=== PATIENT | female | born 1940 | race Caucasian/White ===

== ENCOUNTER 2022-02-25 09:27 | Inpatient (IN) ==
[2022-02-25] MEDS ORDERED: AZITHROMYCIN 500 MG in DEXTROSE 5% IN WATER 250 ML IV ONE (09:28)
[2022-02-25] MEDS ORDERED: ACETAMINOPHEN 325 MG TABLET PO ONE (09:28)
[2022-02-25] MEDS ORDERED: cefTRIAXone 1 GM in DEXTROSE 5% IN WATER 50 ML IV SCH ×2 (09:30→14:24)
[2022-02-25] MEDS ORDERED: 0.9 % SODIUM CHLORIDE 1,000 ML IV ONE (09:31)
--- NOTE | 2022-02-25 09:54 | Emergency Department Note ---
HPI General Chief complaint: Weakness Stated complaint: weakness Time Seen by Provider: 02/25/22 09:28 Source: patient Mode of arrival: ambulatory Limitations: no limitations History of Present Illness HPI Narrative: Narrative: 81-year-old female presents the emergency department complaining of cough congestion generalized weakness. Says been going on for about 5 to 3 days. Was seen at urgent care couple days ago diagnosed just with fluid overloaded started on Lasix. States that she continues to get not get better. Says she has been coughing quite a bit at first it was just clear phlegm now turned into green- brownish phlegm. States that she has felt feverish not actually checked her temperature just has not been feeling well over the last couple days says getting harder and harder to breathe but just because she cannot cough all the phlegm out. She is also noticed nasal drainage. She has no painful urination no abdominal pain no chest pain so the shortness of breath is only when she gets up and moves but just because she cannot cough all the phlegm out. Denying any other symptoms otherwise. Related Data Home Medications Medication Instructions Recorded Confirmed amlodipine 10 mg tablet 10 mg PO QDAY 02/25/22 02/25/22 aspirin 325 mg tablet 325 mg PO QDAY 02/25/22 02/25/22 chlorthalidone 25 mg tablet 25 mg PO QDAY 02/25/22 02/25/22 gabapentin 300 mg capsule 300 mg PO QID 02/25/22 02/25/22 insulin glargine 100 unit/mL (3 56 unit SUBCUT DAILY 02/25/22 02/25/22 mL) subcutaneous pen (Lantus Solostar U-100 Insulin) insulin lispro 100 unit/mL 20 - 24 unit SUBCUT TID 02/25/22 02/25/22 subcutaneous pen (Humalog KwikPen (U-100) Insulin) metoprolol succinate 100 mg 100 mg PO QDAY 02/25/22 02/25/22 tablet,extended release 24 hr (Toprol XL) omega-3 339 mg-dha and epa 314 1 cap PO DAILY 02/25/22 02/25/22 mg-fish and krill oil 500 mg capsule (MegaRed Advanced 4-in-1) omeprazole 20 mg capsule,delayed 20 mg PO QDAY 02/25/22 02/25/22 release promethazine-DM 6.25 mg-15 mg/5 mL 5 ml PO HS PRN 02/25/22 02/25/22 oral syrup valsartan 80 mg tablet 80 mg PO QDAY 02/25/22 02/25/22 Allergies Allergy/AdvReac Type Severity Reaction Status Date / Time codeine Allergy Swelling Verified 10/18/21 07:56 Review of Systems ROS ROS Narrative: Narrative: All systems ED: reviewed and negative except as stated. PFSH Narrative Patient History Narrative: Narrative: Medical/Surgical/Family History All Active Problems (Updated 02/25/22 @ 12:48 by Vimal Sy DO) Foot pain, right (Acute) Fall (Acute) Closed head injury (Acute) LLL pneumonia (Acute) Sepsis (Acute) COVID-19 (Acute) Social History Smoking Status: Never smoker Exam Narrative Narrative: Narrative: Vital signs noted General: Awake. Alert. No distress. Skin: Warm. Dry. No rash. HEENT: NCAT. PERRL. EOMI. No conjunctivitis. No nystagmus. No pharyngitis. Membranes moist. Neck: No PTP. Good ROM. No meningeal signs. No stridor. No thyromegaly. No JVD. Cardiovascular: RRR. No murmur. No rubs. No gallops. Respiratory: No respiratory distress. Does have rhonchi bilaterally in both bases worse on the left than the right. Gastrointestinal: Abdomen soft. No tenderness. No distention. Normal bowel sounds. No palpable organomegaly or masses. Back: No deformity. No CVAT. Musculoskeletal: No tenderness. No swelling. No erythema. 2+ bilateral pedal edema. Good peripheral pulses x 4 Lymphatic: No palpable adenopathy. Neurological: No focal neurological deficits observed. General Limitations: no limitations Course Vital Signs Vital signs: Vital Signs Temperature 98.6 F 02/25/22 09:28 Pulse Rate 104 H 02/25/22 09:28 Respiratory Rate 18 02/25/22 09:28 Blood Pressure 156/65 02/25/22 09:28 Pulse Oximetry (%) 96 02/25/22 09:28 Temperature 98.6 F 02/25/22 09:28 Pulse Rate 89 02/25/22 12:31 Respiratory Rate 21 02/25/22 12:31 Blood Pressure 143/75 02/25/22 12:31 Pulse Oximetry (%) 93 02/25/22 12:31 MDM MDM Narrative Medical decision making narrative: Narrative: Patient is presenting she does meet criteria for sepsis. Most likely this is from pneumonia. Went ahead and started the sepsis protocol. Lactate was elevated at 2.6. Unguinal hold off on giving patient the full 30 mL/kg IV fluid bolus due to the fact that she does have a little bit of fluid overload. We will give her 1 L and continue to watch her to monitor. Other labs are pending we will get blood cultures. We will start her on azithromycin and Ceftin most likely for community-acquired pneumonia. Disposition most likely will be admission secondary to the generalized weakness as well as the sepsis and pneumonia. Tylenol was also given for antipyretic. Labs came back showing leukocytosis as well as chest x-ray showing left lower lobe pneumonia. She also had a mild elevation in lactate which was 2.6. I will give her the 1 L somewhat about fluid overload. Patient's antibiotics were started with azithromycin and ceftriaxone. She had normalizing of her heart rate as well with these. Tylenol was also given for antipyretic. CMP otherwise was normal. The procalcitonin also was elevated. Thinks most likely is pneumonia COVID test does not admit the patient and she came back COVID- positive. I spoke with the hospitalist Dr. Grace who has agreed to admit the patient. Patient is admitted in fair condition. EKG interpretation: EKG done at 0 929 interpreted by myself shows sinus tachycardia at a rate of 102, NM interval 163, QRS 98, QTc 501. There is no acute ST changes no acute T wave changes no other signs of ischemia. No signs of hypertrophy, heart strain, heart block. No WPW/Brugada/HOCM. Impression is normal sinus tachycardia with no ischemia Total critical care time of 32 min including performance of history and physical exam, review of results, re-examinations, time spent documenting, border inspector, review of old records, discussions with patient and family, discussions with retail sales consultant(s), discussion with admitting physician, completion of admission/transfer paperwork. This does not include time for any separately documented procedures. Lab Data Result diagrams: 02/25/22 09:38 02/25/22 09:38 Labs: Lab Results 02/25/22 02/25/22 02/25/22 Range/Units 09:38 09:38 09:38 WBC 19.3 H (4.5-11.0) K/mcL RBC 3.70 (3.59-5.38) M/mcL Hgb 9.6 L (11.2-15.7) g/dL Hct 31.7 L (34.1-44.9) % MCV 85.7 (80.0-100.0) fL MCH 25.9 L (26.0-34.0) pg MCHC 30.3 L (31.0-36.0) g/dL RDW 16.0 H (11.5-14.5) % Plt Count 327 (140-440) K/mcL MPV 9.8 (7.4-10.4) fL Neut % (Auto) TNP Lymph % (Auto) TNP Wells % (Auto) TNP Eos % (Auto) TNP Baso % (Auto) TNP Lymph # (Auto) 2.84 (1.50-4.80) K/mcL Wells # (Auto) 3.18 H (0.10-0.90) K/mcL Eos # (Auto) 0.05 (0.00-0.70) K/mcL Baso # (Auto) 0.04 (0.00-0.30) K/mcL Absolute Neutrophils 13.18 H (1.80-8.00) K/mcL POC VBG pH (7.32-7.42) POC VBG pCO2 at Temp (41-51) POC VBG pO2 (25-40) POC VBG HCO3 (24-28) POC VBG Total CO2 (25-29) POC Venous O2 Sat (40-70) POC VBG Base Excess (-2-2) VBG Lactic Acid 2.1 H (0.5-2.0) mmol/L Sodium 132 L (133-145) mmol/L Potassium 4.1 (3.3-5.1) mmol/L Chloride 94 L (96-108) mmol/L Carbon Dioxide 17 L (22-30) mmol/L Anion Gap 21.0 H (8.0-16.0) BUN 62 H (8-23) mg/dL Creatinine 2.1 H (0.6-1.1) mg/dL GFR Calculation 21 Glucose 308 H (70-105) mg/dL POC Venous Lactate (0.5-2) Calcium 9.5 (8.6-10.4) mg/dL Total Bilirubin 0.6 (0.1-1.0) mg/dL AST 13 (<32) U/L ALT 18 (<40) U/L Alkaline Phosphatase 106 (39-117) U/L NT-Pro-B Natriuret Pep 1504.0 H (<450.0) pg/mL Total Protein 7.6 (5.9-8.4) gm/dL Albumin 3.5 (3.2-5.2) gm/dL Globulin 4.1 H (2.2-3.7) gm/dL Albumin/Globulin Ratio 0.9 L (1.0-2.3) Procalcitonin 0.36 H (<0.10) ng/mL 02/25/22 Range/Units 09:43 WBC (4.5-11.0) K/mcL RBC (3.59-5.38) M/mcL Hgb (11.2-15.7) g/dL Hct (34.1-44.9) % MCV (80.0-100.0) fL MCH (26.0-34.0) pg MCHC (31.0-36.0) g/dL RDW (11.5-14.5) % Plt Count (140-440) K/mcL MPV (7.4-10.4) fL Neut % (Auto) Lymph % (Auto) Wells % (Auto) Eos % (Auto) Baso % (Auto) Lymph # (Auto) (1.50-4.80) K/mcL Wells # (Auto) (0.10-0.90) K/mcL Eos # (Auto) (0.00-0.70) K/mcL Baso # (Auto) (0.00-0.30) K/mcL Absolute Neutrophils (1.80-8.00) K/mcL POC VBG pH 7.39 (7.32-7.42) POC VBG pCO2 at Temp 31.6 L (41-51) POC VBG pO2 30 (25-40) POC VBG HCO3 18.9 L (24-28) POC VBG Total CO2 20.0 L (25-29) POC Venous O2 Sat 57.0 (40-70) POC VBG Base Excess -6.0 L (-2-2) VBG Lactic Acid (0.5-2.0) mmol/L Sodium (133-145) mmol/L Potassium (3.3-5.1) mmol/L Chloride (96-108) mmol/L Carbon Dioxide (22-30) mmol/L Anion Gap (8.0-16.0) BUN (8-23) mg/dL Creatinine (0.6-1.1) mg/dL GFR Calculation Glucose (70-105) mg/dL POC Venous Lactate 2.6 H (0.5-2) Calcium (8.6-10.4) mg/dL Total Bilirubin (0.1-1.0) mg/dL AST (<32) U/L ALT (<40) U/L Alkaline Phosphatase (39-117) U/L NT-Pro-B Natriuret Pep (<450.0) pg/mL Total Protein (5.9-8.4) gm/dL Albumin (3.2-5.2) gm/dL Globulin (2.2-3.7) gm/dL Albumin/Globulin Ratio (1.0-2.3) Procalcitonin (<0.10) ng/mL ED POC Tests ED POC Tests: KIMBERLY - SARS Antigen Positive Discharge Plan Patient/Caregiver Discharge Instructions Pt seen by PROCESSES CHEMICAL DESIGN ENGINEER/PA only: No Clinical Impression: LLL pneumonia, Sepsis, COVID-19 Patient Disposition: Xfer As Inpt ([facility]) Follow up with: Bar Catalan [Primary Care Provider] - Prescriptions: No Action promethazine-DM 6.25-15 mg/5 mL Syrup 5 ml PO HS PRN (Reason: Nausea) 0RF aspirin 325 mg Tablet 325 mg PO QDAY 0RF metoprolol succinate [Toprol XL] 100 mg Tablet Extended Release 24 Hr 100 mg PO QDAY 0RF valsartan 80 mg Tablet 80 mg PO QDAY 0RF chlorthalidone 25 mg Tablet 25 mg PO QDAY 0RF amlodipine 10 mg Tablet 10 mg PO QDAY 0RF gabapentin 300 mg Capsule 300 mg PO QID 0RF omeprazole 20 mg Capsule,Delayed Release(Dr/Ec) 20 mg PO QDAY 0RF insulin lispro [Humalog KwikPen Insulin] 100 unit/mL Insulin Pen 20 - 24 unit SUBCUT TID 0RF Lantus Solostar U-100 Insulin 100 unit/mL (3 mL) Insulin Pen 56 unit SUBCUT DAILY 0RF omega 7-opm-pig-fish oil-krill [[facility] Advanced 4-in-1] 339 mg-314 mg- 500 mg Capsule 1 cap PO DAILY 0RF
--- NOTE | 2022-02-25 09:59 | XRay Report ---
HISTORY: Dyspnea, weakness, productive cough, possible pneumonia FINDINGS: There is a small alveolar infiltrate in the left lower lobe behind the left heart border. There are bands of discoid atelectasis in the lingula. The right lung is clear. The heart is mildly enlarged. Aorta is tortuous. There has been a prior sternotomy. No congestive heart failure or pleural effusion are present. Comparison with the prior chest CT done on 01/20/22 shows the infiltrate in the left lower lobe is new. IMPRESSION: Mild left lower lobe pneumonia Interpreted and Authenticated by: Danie Schmitt 02/25/22
[2022-02-25 10:57] LABS: ALT/SGPT 18 U/L (<40); AST/SGOT 13 U/L (<32); Albumin 3.5 gm/dL (3.2-5.2); Albumin/Globulin Ratio 0.9 (1.0-2.3); Alkaline Phosphatase 106 U/L (39-117); Bilirubin,Total 0.6 mg/dL (0.1-1.0); Blood Urea Nitrogen 62 mg/dL (8-23); Calcium 9.5 mg/dL (8.6-10.4); Carbon Dioxide 17 mmol/L (22-30); Chloride 94 mmol/L (96-108); Globulin 4.1 gm/dL (2.2-3.7); Glomerular Filtration Rate 21; Glucose 308 mg/dL (70-105)
--- NOTE | 2022-02-25 11:49 | EKG ---
[facility] Minor Care Test Date: 2022-02-25 Pat Name: Jim Butler Department: ED Room: Gender: Female Rail Transportation Operator: LR : 1940 Requested By: Vimal Sy Order Number: [id number] Reading MD: Holger Schmitt M.D. Measurements Intervals [place] Rate: 102 P: 45 DE: 163 QRS: 10 QRSD: 98 T: 62 QT: 384 QTc: 501 Interpretive Statements Sinus tachycardia Consider inferior infarct Minimal ST depression, anterolateral leads Prolonged QT interval Electronically Signed On 02-25-2022 11:49:11 PDT by Holger Schmitt M.D. /store/[email or web address]/[id number]
[2022-02-25 12:00] LABS: Basophils # (Auto) 0.04 K/mcL (0.00-0.30); Eosinophils # (Auto) 0.05 K/mcL (0.00-0.70); Hematocrit 31.7 % (34.1-44.9); Hemoglobin 9.6 g/dL (11.2-15.7); Lymphocytes # (Auto) 2.84 K/mcL (1.50-4.80); Mean Cell Volume 85.7 fL (80.0-100.0); Mean Corpuscular HGB Conc 30.3 g/dL (31.0-36.0); Mean Platelet Volume 9.8 fL (7.4-10.4); Monocytes # (Auto) 3.18 K/mcL (0.10-0.90); Platelet Count 327 K/mcL (140-440); WBC 19.3 K/mcL (4.5-11.0)
--- NOTE | 2022-02-25 13:00 | Internal Med History&Physical ---
HPI History of Present Illness Patient information: Note initiated : 02/25/22 at 12:56 pm Service Date, if different from initiated Date: [as above] Patient: Jim Butler a 81 y/o F admitted on for weakness. Chief Complaint: [Weakness, SOB] Chief complaint: SOB History of present illness: Ms. Butler is a 81 year old F with a complex past medical history significant for CAD, hypertension, hyperlipidemia and insulin-dependent diabetes who presents to the hospital with progressive shortness of breath and weakness. The patient states that she has been feeling unwell for nearly a month. She is went to her primary care physician several times and was told that she needed to possibly go to a rehab facility for strengthening conditioning. She went back recently to her PCP and was prescribed diuretics for suspected pulmonary edema. Her condition continued to worsen. She denied any fevers or chills, but does have a productive cough. She states that she lives at home with her daughter. Her son came over and thought she looked quite weak and decided to call EMS. On presentation, she was hemodynamically stable and afebrile with a blood pressure of 143/75, heart rate of 89, and O2 sat of 93% on ambient air. Her labs revealed a white blood cell count of 19.3, lactic acid of 2.1, and creatinine of 2.6. Her glucose was 308. Blood cultures and COVID-19 are pending. Chest x- ray was concerning for lower lobe infiltrate. She was empirically given 1 L normal saline, and also prescribed ceftriaxone and Zithromax. The hospital service was asked to admit the patient for further management evaluation of her sepsis in the setting of community-acquired pneumonia. Review of Systems All systems: reviewed and no additional remarkable complaints except as stated Constitutional Constitutional: Present as per HPI EENT Eyes: Present as per HPI; Absent blurry vision Cardiovascular Cardiovascular: Present as per HPI; Absent chest pain, dyspnea, dyspnea on exertion, leg edema or palpatations Respiratory Respiratory: Present as per HPI, cough and dyspnea; Absent dyspnea on exertion, wheezing or stridor Gastrointestinal Gastrointestinal: Present as per HPI; Absent abdominal pain, diarrhea, dysphagia, hematemesis, melena, nausea or vomiting Musculoskeletal Musculoskeletal: Present as per HPI; Absent joint swelling, limited range of motion, muscle cramps, muscle weakness or myalgias Integumentary Integumentary: Present as per HPI; Absent erythema, new lesions, rash or wounds Neurological Neurological: Present as per HPI; Absent abnormal gait, behavioral changes, focal weakness, headache(s), loss of vision, numbness, sensory deficit or syncope Endocrine Endocrine: Absent change in body appearance, fatigue or heat intolerance Hematologic/Lymphatic Hematologic/Lymphatic: Present as per HPI PFSH PFSH All Active Problems (Updated 02/25/22 @ 13:03 by Santos Grace MD) Lactic acidosis (Acute) MARIN (acute kidney injury) (Acute) CAD (coronary artery disease) (Acute) DM2 (diabetes mellitus, type 2) (Acute) Foot pain, right (Acute) Fall (Acute) Closed head injury (Acute) LLL pneumonia (Acute) Sepsis (Acute) COVID-19 (Acute) MEDS/ALLERGIES Home Medications and Allergies Home Medications Medication Instructions Recorded Confirmed Type amlodipine 10 mg tablet 10 mg PO QDAY 02/25/22 02/25/22 History aspirin 325 mg tablet 325 mg PO QDAY 02/25/22 02/25/22 History chlorthalidone 25 mg tablet 25 mg PO QDAY 02/25/22 02/25/22 History gabapentin 300 mg capsule 300 mg PO QID 02/25/22 02/25/22 History insulin glargine 100 unit/mL (3 56 unit SUBCUT DAILY 02/25/22 02/25/22 History mL) subcutaneous pen (Lantus Solostar U-100 Insulin) insulin lispro 100 unit/mL 20 - 24 unit SUBCUT TID 02/25/22 02/25/22 History subcutaneous pen (Humalog KwikPen (U-100) Insulin) metoprolol succinate 100 mg 100 mg PO QDAY 02/25/22 02/25/22 History tablet,extended release 24 hr (Toprol XL) omega-3 339 mg-dha and epa 314 1 cap PO DAILY 02/25/22 02/25/22 History mg-fish and krill oil 500 mg capsule (MegaRed Advanced 4-in-1) omeprazole 20 mg capsule,delayed 20 mg PO QDAY 02/25/22 02/25/22 History release promethazine-DM 6.25 mg-15 mg/5 mL 5 ml PO HS PRN 02/25/22 02/25/22 History oral syrup valsartan 80 mg tablet 80 mg PO QDAY 02/25/22 02/25/22 History Allergies Allergy/AdvReac Type Severity Reaction Status Date / Time codeine Allergy Swelling Verified 10/18/21 07:56 EXAM Constitutional Vitals: Temp Pulse Resp BP Pulse Ox 98.6 F 89 21 143/75 93 02/25/22 09:28 02/25/22 12:31 02/25/22 12:31 02/25/22 12:31 02/25/22 12:31 General appearance: average body habitus Head Head exam: Present atraumatic, normal inspection and normocephalic Eye Eye exam: Present EOMI, normal appearance and PERRL; Absent conjunctival injection ENT ENT exam: Present normal exam; Absent mucous membranes dry Neck Neck exam: Present full ROM; Absent lymphadenopathy Respiratory Respiratory exam: Present rhonchi; Absent normal respiratory exam, decreased breath sounds, CTAB, respiratory distress or wheezes Cardiovascular Cardiovascular exam: Present normal rate and rhythm and RRR; Absent JVD GI/Abdominal GI/Abdominal exam: Present normal bowel sounds and soft; Absent diminished bowel sounds, distended, guarding, mass, rebound or tenderness Neurological Exam Neurological exam: Present alert, CN II-XII intact and oriented X3 Psychiatric Psychiatric exam: Present normal affect and normal mood Skin Skin exam: Present intact and warm; Absent erythema, pallor, petechiae or rash DATA Data Completed and Pending Labs: Labs from last 24 hours 02/25/22 02/25/22 02/25/22 09:43 09:38 09:38 WBC RBC Hgb Hct MCV MCH MCHC RDW Plt Count MPV Neut % (Auto) Lymph % (Auto) Esmeralda % (Auto) Eos % (Auto) Baso % (Auto) Lymph # (Auto) Esmeralda # (Auto) Eos # (Auto) Baso # (Auto) Absolute Neutrophils POC VBG pH 7.39 POC VBG pCO2 at Temp 31.6 L POC VBG pO2 30 POC VBG HCO3 18.9 L POC VBG Total CO2 20.0 L POC Venous O2 Sat 57.0 POC VBG Base Excess -6.0 L VBG Lactic Acid 2.1 H Sodium 132 L Potassium 4.1 Chloride 94 L Carbon Dioxide 17 L Anion Gap 21.0 H BUN 62 H Creatinine 2.1 H GFR Calculation 21 Glucose 308 H POC Venous Lactate 2.6 H Calcium 9.5 Total Bilirubin 0.6 AST 13 ALT 18 Alkaline Phosphatase 106 NT-Pro-B Natriuret Pep 1504.0 H Total Protein 7.6 Albumin 3.5 Globulin 4.1 H Albumin/Globulin Ratio 0.9 L Procalcitonin 0.36 H 02/25/22 09:38 WBC 19.3 H RBC 3.70 Hgb 9.6 L Hct 31.7 L MCV 85.7 MCH 25.9 L MCHC 30.3 L RDW 16.0 H Plt Count 327 MPV 9.8 Neut % (Auto) TNP Lymph % (Auto) TNP Esmeralda % (Auto) TNP Eos % (Auto) TNP Baso % (Auto) TNP Lymph # (Auto) 2.84 Esmeralda # (Auto) 3.18 H Eos # (Auto) 0.05 Baso # (Auto) 0.04 Absolute Neutrophils 13.18 H POC VBG pH POC VBG pCO2 at Temp POC VBG pO2 POC VBG HCO3 POC VBG Total CO2 POC Venous O2 Sat POC VBG Base Excess VBG Lactic Acid Sodium Potassium Chloride Carbon Dioxide Anion Gap BUN Creatinine GFR Calculation Glucose POC Venous Lactate Calcium Total Bilirubin AST ALT Alkaline Phosphatase NT-Pro-B Natriuret Pep Total Protein Albumin Globulin Albumin/Globulin Ratio Procalcitonin A/P Assessment and plan (1) Fall: Status: Acute (2) Closed head injury: Status: Acute (3) LLL pneumonia: Status: Acute Qualifiers: Pneumonia type: due to unspecified organism Qualified Code(s): J18.9 - Pneumonia, unspecified organism (4) Sepsis: Status: Acute Qualifiers: Sepsis acute organ dysfunction status: without acute organ dysfunction Sepsis type: sepsis due to unspecified organism Qualified Code(s): A41.9 - Sepsis, unspecified organism (5) DM2 (diabetes mellitus, type 2): Status: Acute (6) CAD (coronary artery disease): Status: Acute (7) MARIN (acute kidney injury): Status: Acute (8) Lactic acidosis: Status: Acute Narrative A/P Narrative: The patient is being treated for sepsis due to respiratory etiology. Chest x- ray confirmed left lobar pneumonia. She was found to have an elevated white blood cell count of 19,000, lactic acid of 2.6, and a creatinine of 2.1. In the setting of sepsis, will hold the patient's home amlodipine, Toprol-XL, valsartan, and especially her chlorthalidone. We will resuscitate her with IV fluids and continue ceftriaxone and Zithromax. We will follow-up on blood cultures, and respiratory panel including COVID-19. Continue to monitor fever curve. We will repeat her lactic acid to make sure that this is resolving. Time Spent With Patient Time: Total time spent is greater than 50% in coordination of care (as documented) at patient's floor/unit and/or counseling patient: Total time spent with greater than 50% in coordination of care (as documented) at patient's floor/unit and/or counseling patient:: 50 - 70 minutes
[2022-02-25] MEDS ORDERED: DEXTROSE 50% 50 ML VIAL IV PRN (14:24)
[2022-02-25] MEDS ORDERED: ALBUTEROL SULFATE 2.5 MG/3 ML NEBULIZER NEB PRN (14:24)
[2022-02-25] MEDS ORDERED: ONDANSETRON 4 MG/2 ML VIAL IV PRN (14:24)
[2022-02-25] MEDS ORDERED: AZITHROMYCIN 250 MG in DEXTROSE 5% IN WATER 250 ML IV SCH (14:24)
[2022-02-25] MEDS ORDERED: DEXTROSE 31 GM ORAL.SUSP PO PRN (14:24)
[2022-02-25] MEDS: LACTATED RINGERS 1,000 ML IV SCH (16:27)
[2022-02-25] MEDS: 0.9 % SODIUM CHLORIDE 10 ML SYRINGE IV SCH ×2 (16:27→20:31)
[2022-02-25] MEDS: INSULIN LISPRO 1 UNIT/0.01 ML UNIT SQ SCH ×2 (17:02→20:30)
[2022-02-25] MEDS: ACETAMINOPHEN 325 MG TABLET PO PRN (19:30)
[2022-02-25] MEDS: DOCUSATE SODIUM 100 MG CAPSULE PO SCH (20:30)
[2022-02-25] MEDS: guaiFENesin 600 MG TAB.SR.12H PO PRN (20:31)
[2022-02-25] MEDS: SENNOSIDES 1 TABLET PO SCH (20:31)
[2022-02-25] MEDS: GABAPENTIN 300 MG CAPSULE PO SCH (20:31)
[2022-02-25] MEDS: BENZONATATE 100 MG CAPSULE PO PRN (20:31)
[2022-02-25] MEDS ORDERED: IBUPROFEN 600 MG TABLET PO PRN (21:31)
[2022-02-26] MEDS: ACETAMINOPHEN 325 MG TABLET PO PRN ×2 (03:38→19:19)
[2022-02-26] MEDS: LACTATED RINGERS 1,000 ML IV SCH ×3 (05:27→16:58)
[2022-02-26] MEDS: BENZONATATE 100 MG CAPSULE PO PRN ×2 (05:28→19:20)
[2022-02-26] MEDS: 0.9 % SODIUM CHLORIDE 10 ML SYRINGE IV SCH ×3 (05:32→20:56)
[2022-02-26 06:08] LABS: Blood Urea Nitrogen 56 mg/dL (8-23); Calcium 9.1 mg/dL (8.6-10.4); Carbon Dioxide 21 mmol/L (22-30); Chloride 102 mmol/L (96-108); Glomerular Filtration Rate 29; Glucose 162 mg/dL (70-105)
[2022-02-26 06:42] LABS: Basophils # (Auto) 0.01 K/mcL (0.00-0.30); Basophils % (Auto) 0.1 % (0.0-2.0); Eosinophils # (Auto) 0.12 K/mcL (0.00-0.70); Eosinophils % (Auto) 0.8 % (0.0-7.0); Hematocrit 26.5 % (34.1-44.9); Hemoglobin 8.4 g/dL (11.2-15.7); Lymphocytes # (Auto) 2.06 K/mcL (1.50-4.80); Mean Cell Volume 82.6 fL (80.0-100.0); Mean Corpuscular HGB Conc 31.7 g/dL (31.0-36.0); Mean Platelet Volume 9.3 fL (7.4-10.4); Monocytes # (Auto) 1.81 K/mcL (0.10-0.90); Monocytes % (Auto) 11.4 % (1.0-12.0); Neutrophils % (Auto) 74.7 % (38.0-78.0); Platelet Count 242 K/mcL (140-440); RBC 3.21 M/mcL (3.59-5.38); Red Cell Distribution Width 15.7 % (11.5-14.5); WBC 15.9 K/mcL (4.5-11.0)
[2022-02-26] MEDS ORDERED: NIRMATRELVIR/RITONAVIR 1 EACH BOX PO SCH (09:00)
[2022-02-26] MEDS ORDERED: REMDESIVIR 200 MG in 0.9 % SODIUM CHLORIDE 250 ML IV ONE (09:15)
[2022-02-26] MEDS: DOCUSATE SODIUM 100 MG CAPSULE PO SCH ×2 (09:27→19:20)
[2022-02-26] MEDS: INSULIN LISPRO 1 UNIT/0.01 ML UNIT SQ SCH ×4 (09:27→20:54)
[2022-02-26] MEDS: GABAPENTIN 300 MG CAPSULE PO SCH ×2 (09:27→20:55)
[2022-02-26] MEDS: cefTRIAXone 1 GM VIAL IV SCH (09:27)
[2022-02-26] MEDS: AZITHROMYCIN 250 MG in DEXTROSE 5% IN WATER 250 ML IV SCH (09:28)
[2022-02-26] MEDS: ENOXAPARIN 40 MG/0.4 ML SYRINGE SQ SCH (09:28)
--- NOTE | 2022-02-26 10:23 | Internal Med Progress Note ---
SUBJECTIVE Subjective Patient information: Note initiated : 02/26/22 at 10:21 am Service Date, if different from initiated Date: [as above] Patient: Jim Butler 81 y/o F admitted on 02/25/22 for weakness. Chief Complaint: [SOB] Principal diagnosis: Shortness of breath, COVID-19, CAP Interval history: The patient was resting comfortably in bed. She did have an appetite this morning. She still has a vigorous cough. Of note she is unvaccinated. Constitutional Vitals: Vital Signs Temp Pulse Resp BP Pulse Ox 97.8 F 76 16 128/66 91 02/26/22 06:37 02/26/22 03:35 02/26/22 06:37 02/26/22 06:37 02/26/22 06:37 Period Temp Pulse Resp BP Sys/Calderon Pulse Ox Last 24 Hr 97.6 F-101.3 F 76-110 16-28 113-156/55-101 90-100 Intake and Output 02/25/22 02/26/22 02/26/22 21:59 05:59 13:59 Intake Total 800 1575 Output Total 250 Balance 800 1325 Weight 77.655 kg Intake & Output: Intake & Output 02/25/22 02/26/22 02/26/22 21:59 05:59 13:59 Intake Total 800 1575 Output Total 250 Balance 800 1325 Weight 77.655 kg Intake: IV 975 Lactated Ringers 1,000 ml @ 75 975 mls/hr IV .[id number] [facility] Rx#: [id number] Oral 800 600 Output: Void Amount 250 Other: Urine Appearance Clear Urine Color Straw Urine Odor Normal Stool Size Small Moderate Stool Color Brown Brown Stool Consistency Soft Loose # of times incontinent of 3 1 Bowels Head Head exam: Present atraumatic and normal inspection Eye Eye exam: Present normal appearance ENT ENT exam: Present mucous membranes moist, normal exam and normal external ear exam Neck Neck exam: Present normal inspection Respiratory Respiratory exam: Present accessory muscle use, rhonchi and wheezes Cardiovascular Cardiovascular exam: Present normal rate and rhythm GI/Abdominal GI/Abdominal exam: Present normal bowel sounds Back Exam Back exam: Present normal inspection Neurological Exam Neurological exam: Present alert and oriented X3 Skin Skin exam: Present intact and warm OBJ DATA Labs CBC & Chem 7: 02/26/22 05:07 02/26/22 05:07 Labs: Abnormal Lab Results 02/26/22 02/26/22 02/25/22 05:07 05:07 09:43 WBC 15.9 H RBC 3.21 L Hgb 8.4 L Hct 26.5 L MCH MCHC RDW 15.7 H Lymph % (Auto) 13.0 L Dickey # (Auto) 1.81 H Absolute Neutrophils 11.88 H POC VBG pCO2 at Temp 31.6 L POC VBG HCO3 18.9 L POC VBG Total CO2 20.0 L POC VBG Base Excess -6.0 L VBG Lactic Acid Sodium Chloride Carbon Dioxide 21 L Anion Gap BUN 56 H Creatinine 1.6 H Glucose 162 H POC Venous Lactate 2.6 H NT-Pro-B Natriuret Pep Globulin Albumin/Globulin Ratio Procalcitonin 02/25/22 02/25/22 02/25/22 09:38 09:38 09:38 WBC 19.3 H RBC Hgb 9.6 L Hct 31.7 L MCH 25.9 L MCHC 30.3 L RDW 16.0 H Lymph % (Auto) Dickey # (Auto) 3.18 H Absolute Neutrophils 13.18 H POC VBG pCO2 at Temp POC VBG HCO3 POC VBG Total CO2 POC VBG Base Excess VBG Lactic Acid 2.1 H Sodium 132 L Chloride 94 L Carbon Dioxide 17 L Anion Gap 21.0 H BUN 62 H Creatinine 2.1 H Glucose 308 H POC Venous Lactate NT-Pro-B Natriuret Pep 1504.0 H Globulin 4.1 H Albumin/Globulin Ratio 0.9 L Procalcitonin 0.36 H Meds: Medications Acetaminophen (Acetaminophen 325 Mg Tablet) 650 mg PO Q6HP PRN; Protocol PRN Reason: Per Pain Protocol/Fever > 101 Last Admin: 02/26/22 03:38 Dose: 650 mg Documented by: Albuterol Sulfate (Albuterol Sulfate 2.5 Mg/3 Ml Nebulizer) 2.5 mg NEB Q2HP PRN PRN Reason: Shortness Of Breath Last Admin: 02/25/22 19:54 Dose: 2.5 mg Documented by: Albuterol/Ipratropium (Ipratropium/Albuterol 3 Ml Ampul.Neb) 3 ml NEB Q6HRT [facility] Benzonatate (Benzonatate 100 Mg Capsule) 100 mg PO TIDP PRN PRN Reason: Cough Last Admin: 02/26/22 05:28 Dose: 100 mg Documented by: Budesonide (Budesonide 0.5 Mg/2 Ml Ampul.Neb) 0.5 mg NEB Q12 [facility] Ceftriaxone Sodium (Ceftriaxone 1 Gm Vial) 1 gm IV Q24H [facility] Last Admin: 02/26/22 09:27 Dose: 1 gm Documented by: Dextrose (Dextrose 50% 50 Ml Vial) 0 ml IV UD PRN PRN Reason: Per Sliding Scale Diagnostic Test (Pha) (Accu-Chek 1 Each Strip) 1 each FS ACHS [facility] Last Admin: 02/26/22 09:27 Dose: 1 each Documented by: Docusate Sodium (Docusate Sodium 100 Mg Capsule) 100 mg PO BID [facility] Last Admin: 02/26/22 09:27 Dose: 100 mg Documented by: Enoxaparin Sodium (Enoxaparin 40 Mg/0.4 Ml Syringe) 40 mg SQ DAILY [facility] Last Admin: 02/26/22 09:28 Dose: 40 mg Documented by: Gabapentin (Gabapentin 300 Mg Capsule) 300 mg PO BID [facility] Last Admin: 02/26/22 09:27 Dose: 300 mg Documented by: Glucose (Dextrose 31 Gm Oral.Susp) 15 gm PO PRN PRN PRN Reason: Hypoglycemia Guaifenesin (Guaifenesin 600 Mg Tab.Sr.12h) 600 mg PO BIDP PRN PRN Reason: Congestion Last Admin: 02/25/22 20:31 Dose: 600 mg Documented by: Lactated Ringer's (Lactated Ringers) 1,000 mls @ 75 mls/hr IV .[id number] [facility] Last Admin: 02/26/22 05:27 Dose: 75 mls/hr Documented by: Azithromycin 250 mg/ Dextrose 250 mls @ 250 mls/hr IV Q24H [facility]; Protocol Stop: 02/28/22 09:59 Last Admin: 02/26/22 09:28 Dose: 250 mls/hr Documented by: REMDESIVIR 100 mg/ Sodium (Chloride) 250 mls @ 500 mls/hr IV Q24H [facility] Stop: 03/02/22 10:29 Ibuprofen (Ibuprofen 600 Mg Tablet) 600 mg PO TIDP PRN; Protocol PRN Reason: Pain/Fever > 100.4 Last Admin: 02/25/22 22:14 Dose: 600 mg Documented by: Insulin Human Lispro (Insulin Lispro 1 Unit/0.01 Ml Unit) 0 unit SQ ACHS [facility]; Protocol Last Admin: 02/26/22 09:27 Dose: 3 units Documented by: Ondansetron HCl (Ondansetron 4 Mg/2 Ml Vial) 4 mg IV Q6HP PRN PRN Reason: Nausea And Vomiting Senna (Sennosides 1 Tablet) 2 tab PO HS [facility] Last Admin: 02/25/22 20:31 Dose: Not Given Documented by: Sodium Chloride (0.9 % Sodium Chloride 10 Ml Syringe) 10 ml IV Q8 [facility] Last Admin: 02/26/22 05:32 Dose: Not Given Documented by: A/P Assessment and plan (1) Fall: Status: Acute (2) Closed head injury: Status: Acute (3) LLL pneumonia: Status: Acute Qualifiers: Pneumonia type: due to unspecified organism Qualified Code(s): J18.9 - Pneumonia, unspecified organism (4) Sepsis: Status: Acute Qualifiers: Sepsis acute organ dysfunction status: without acute organ dysfunction Sepsis type: sepsis due to unspecified organism Qualified Code(s): A41.9 - Sepsis, unspecified organism (5) DM2 (diabetes mellitus, type 2): Status: Acute (6) CAD (coronary artery disease): Status: Acute (7) MARIN (acute kidney injury): Status: Acute (8) Lactic acidosis: Status: Acute Narrative A/P Narrative: The patient is being treated for sepsis due to respiratory etiology. Chest x- ray confirmed left lobar pneumonia. She was found to have an elevated white blood cell count of 19,000, lactic acid of 2.6, and a creatinine of 2.1. In the setting of sepsis, will hold the patient's home amlodipine, Toprol-XL, valsartan, and especially her chlorthalidone. We will resuscitate her with IV fluids and continue ceftriaxone and Zithromax. We will follow-up on blood cultures, and respiratory panel including COVID-19. Continue to monitor fever curve. We will repeat her lactic acid to make sure that this is resolving. 02/26: The patient's O2 sat was 91% this morning and her COVID PCR came back positive. Discussed the case with pharmacy and she will be started on remdesivir infusion. She does not meet criteria for dexamethasone. We will start duo nebs, and Pulmicort twice daily. Because the patient has been sick for nearly a month, there may be a component of underlying bacterial infection and will continue antibiotics for community-acquired pneumonia. Continue to trend white blood cell count which is coming down and is 15.9 today. Time Spent With Patient Time: Total time spent is greater than 50% in coordination of care (as documented) at patient's floor/unit and/or counseling patient: Total time spent with greater than 50% in coordination of care (as documented) at patient's floor/unit and/or counseling patient:: 25 - 35 minutes QUALITY VTE Deep Vein Thrombosis/Pulmonary Embolism Present on Admission: No
[2022-02-26] MEDS: BUDESONIDE 0.5 MG/2 ML AMPUL.NEB NEB SCH ×2 (11:05→18:59)
[2022-02-26] MEDS: IPRATROPIUM/ALBUTEROL 3 ML AMPUL.NEB NEB SCH ×2 (11:05→18:38)
[2022-02-26] MEDS ORDERED: DIPHENOXYLATE HCL/ATROPINE 1 TABLET PO PRN (15:00)
[2022-02-26] MEDS: guaiFENesin 600 MG TAB.SR.12H PO PRN (19:19)
[2022-02-26] MEDS: SENNOSIDES 1 TABLET PO SCH (19:21)
[2022-02-27] MEDS: IPRATROPIUM/ALBUTEROL 3 ML AMPUL.NEB NEB SCH ×4 (00:57→18:59)
[2022-02-27] MEDS: ACETAMINOPHEN 325 MG TABLET PO PRN (04:44)
[2022-02-27] MEDS: LACTATED RINGERS 1,000 ML IV SCH (04:47)
[2022-02-27] MEDS: 0.9 % SODIUM CHLORIDE 10 ML SYRINGE IV SCH ×3 (04:48→20:17)
[2022-02-27 06:27] LABS: Basophils # (Auto) 0.04 K/mcL (0.00-0.30); Basophils % (Auto) 0.2 % (0.0-2.0); Eosinophils # (Auto) 0.47 K/mcL (0.00-0.70); Eosinophils % (Auto) 2.7 % (0.0-7.0); Hemoglobin 8.1 g/dL (11.2-15.7); Lymphocytes % (Auto) 9.9 % (15.5-49.0); Mean Cell Volume 83.6 fL (80.0-100.0); Mean Corpuscular HGB Conc 31.2 g/dL (31.0-36.0); Monocytes # (Auto) 1.51 K/mcL (0.10-0.90); Monocytes % (Auto) 8.8 % (1.0-12.0); Neutrophils % (Auto) 78.4 % (38.0-78.0); Platelet Count 277 K/mcL (140-440); RBC 3.11 M/mcL (3.59-5.38); Red Cell Distribution Width 15.9 % (11.5-14.5); WBC 17.2 K/mcL (4.5-11.0)
[2022-02-27 06:48] LABS: ALT/SGPT 18 U/L (<40); AST/SGOT 22 U/L (<32); Albumin 2.8 gm/dL (3.2-5.2); Albumin/Globulin Ratio 0.8 (1.0-2.3); Alkaline Phosphatase 103 U/L (39-117); Bilirubin,Total 0.2 mg/dL (0.1-1.0); Blood Urea Nitrogen 37 mg/dL (8-23); Calcium 9.1 mg/dL (8.6-10.4); Carbon Dioxide 23 mmol/L (22-30); Chloride 100 mmol/L (96-108); Globulin 3.5 gm/dL (2.2-3.7); Glomerular Filtration Rate 42; Glucose 130 mg/dL (70-105)
[2022-02-27] MEDS: BUDESONIDE 0.5 MG/2 ML AMPUL.NEB NEB SCH ×2 (07:13→19:00)
[2022-02-27] MEDS: INSULIN LISPRO 1 UNIT/0.01 ML UNIT SQ SCH ×4 (07:45→20:33)
[2022-02-27] MEDS: cefTRIAXone 1 GM VIAL IV SCH (09:17)
[2022-02-27] MEDS: AZITHROMYCIN 250 MG in DEXTROSE 5% IN WATER 250 ML IV SCH (09:17)
[2022-02-27] MEDS: ENOXAPARIN 40 MG/0.4 ML SYRINGE SQ SCH (09:18)
[2022-02-27] MEDS: DOCUSATE SODIUM 100 MG CAPSULE PO SCH ×3 (09:18→20:58)
[2022-02-27] MEDS: GABAPENTIN 300 MG CAPSULE PO SCH ×2 (09:18→20:16)
[2022-02-27] MEDS: REMDESIVIR 100 MG in 0.9 % SODIUM CHLORIDE 250 ML IV SCH (10:52)
[2022-02-27] MEDS: BENZONATATE 100 MG CAPSULE PO PRN (11:02)
[2022-02-27] MEDS: guaiFENesin 600 MG TAB.SR.12H PO PRN (11:02)
--- NOTE | 2022-02-27 11:28 | Internal Med Progress Note ---
SUBJECTIVE Subjective Patient information: Note initiated : 02/27/22 at 11:26 am Service Date, if different from initiated Date: [as above] Patient: Jim Butler 81 y/o F admitted on 02/25/22 for weakness. Chief Complaint: [] Principal diagnosis: Shortness of breath, COVID-19, CAP Interval history: The patient was mainly complaining about her persistent cough. She states her breathing has improved. She states that day by day she is feeling better. Constitutional Vitals: Vital Signs Temp Pulse Resp BP Pulse Ox 99 F 76 22 154/68 93 02/27/22 07:25 02/27/22 07:16 02/27/22 07:25 02/27/22 07:25 02/27/22 07:25 Period Temp Pulse Resp BP Sys/Calderon Pulse Ox Last 24 Hr 97.2 F-100.3 F 76-96 16-24 119-167/57-78 91-97 Intake and Output 02/26/22 02/27/22 02/27/22 21:59 05:59 13:59 Intake Total 1240 1500 250 Output Total 1 2 2 Balance 1239 1498 248 Weight 78.018 kg Intake & Output: Intake & Output 02/26/22 02/27/22 02/27/22 21:59 05:59 13:59 Intake Total 1240 1500 250 Output Total 1 2 2 Balance 1239 1498 248 Weight 78.018 kg Intake: IV 1000 1000 250 Zithromax 250 mg In Dextrose 5% 250 in Water 250 ml @ 250 mls/hr IV Q24H [facility] Rx#:[id number] Lactated Ringers 1,000 ml @ 75 1000 1000 mls/hr IV .[id number] [facility] Rx#: [id number] Oral 240 500 Output: # of times incontinent of urine 1 2 2 Other: Meal Breakfast Percent of Meal Consumed 25% Feeding Ability Assist with Tray Set Up Stool Size Moderate Smear Stool Color Brown Brown Stool Consistency Liquid Loose # Voids 2 # Bowel Movements 1 # of times incontinent of 2 1 Bowels Head Head exam: Present atraumatic and normal inspection Eye Eye exam: Present normal appearance ENT ENT exam: Present mucous membranes moist, normal exam and normal external ear exam Neck Neck exam: Present normal inspection Respiratory Respiratory exam: Present rhonchi and wheezes Cardiovascular Cardiovascular exam: Present normal rate and rhythm GI/Abdominal GI/Abdominal exam: Present normal bowel sounds Back Exam Back exam: Present normal inspection Neurological Exam Neurological exam: Present alert and oriented X3 Skin Skin exam: Present intact and warm OBJ DATA Labs CBC & Chem 7: 02/27/22 05:16 02/27/22 05:16 Labs: Abnormal Lab Results 02/27/22 02/27/22 02/26/22 05:16 05:16 05:07 WBC 17.2 H RBC 3.11 L Hgb 8.1 L Hct 26.0 L MCH MCHC RDW 15.9 H Neut % (Auto) 78.4 H Lymph % (Auto) 9.9 L Cuming # (Auto) 1.51 H Absolute Neutrophils 13.43 H POC VBG pCO2 at Temp POC VBG HCO3 POC VBG Total CO2 POC VBG Base Excess VBG Lactic Acid Sodium Chloride Carbon Dioxide 21 L Anion Gap BUN 37 H 56 H Creatinine 1.2 H 1.6 H Glucose 130 H 162 H POC Venous Lactate NT-Pro-B Natriuret Pep Albumin 2.8 L Globulin Albumin/Globulin Ratio 0.8 L Procalcitonin 02/26/22 02/25/22 02/25/22 05:07 09:43 09:38 WBC 15.9 H RBC 3.21 L Hgb 8.4 L Hct 26.5 L MCH MCHC RDW 15.7 H Neut % (Auto) Lymph % (Auto) 13.0 L Cuming # (Auto) 1.81 H Absolute Neutrophils 11.88 H POC VBG pCO2 at Temp 31.6 L POC VBG HCO3 18.9 L POC VBG Total CO2 20.0 L POC VBG Base Excess -6.0 L VBG Lactic Acid Sodium Chloride Carbon Dioxide Anion Gap BUN Creatinine Glucose POC Venous Lactate 2.6 H NT-Pro-B Natriuret Pep Albumin Globulin Albumin/Globulin Ratio Procalcitonin 0.36 H 02/25/22 02/25/22 09:38 09:38 WBC 19.3 H RBC Hgb 9.6 L Hct 31.7 L MCH 25.9 L MCHC 30.3 L RDW 16.0 H Neut % (Auto) Lymph % (Auto) Cuming # (Auto) 3.18 H Absolute Neutrophils 13.18 H POC VBG pCO2 at Temp POC VBG HCO3 POC VBG Total CO2 POC VBG Base Excess VBG Lactic Acid 2.1 H Sodium 132 L Chloride 94 L Carbon Dioxide 17 L Anion Gap 21.0 H BUN 62 H Creatinine 2.1 H Glucose 308 H POC Venous Lactate NT-Pro-B Natriuret Pep 1504.0 H Albumin Globulin 4.1 H Albumin/Globulin Ratio 0.9 L Procalcitonin Meds: Medications Acetaminophen (Acetaminophen 325 Mg Tablet) 650 mg PO Q6HP PRN; Protocol PRN Reason: Per Pain Protocol/Fever > 101 Last Admin: 02/27/22 04:44 Dose: 650 mg Documented by: Albuterol Sulfate (Albuterol Sulfate 2.5 Mg/3 Ml Nebulizer) 2.5 mg NEB Q2HP PRN PRN Reason: Shortness Of Breath Last Admin: 02/25/22 19:54 Dose: 2.5 mg Documented by: Albuterol/Ipratropium (Ipratropium/Albuterol 3 Ml Ampul.Neb) 3 ml NEB Q6HRT [facility] Last Admin: 02/27/22 07:13 Dose: 3 ml Documented by: Benzonatate (Benzonatate 100 Mg Capsule) 100 mg PO TIDP PRN PRN Reason: Cough Last Admin: 02/27/22 11:02 Dose: 100 mg Documented by: Budesonide (Budesonide 0.5 Mg/2 Ml Ampul.Neb) 0.5 mg NEB Q12 [facility] Last Admin: 02/27/22 07:13 Dose: 0.5 mg Documented by: Ceftriaxone Sodium (Ceftriaxone 1 Gm Vial) 1 gm IV Q24H [facility] Last Admin: 02/27/22 09:17 Dose: 1 gm Documented by: Dextrose (Dextrose 50% 50 Ml Vial) 0 ml IV UD PRN PRN Reason: Per Sliding Scale Diagnostic Test (Pha) (Accu-Chek 1 Each Strip) 1 each FS ACHS [facility] Last Admin: 02/27/22 11:18 Dose: 1 each Documented by: Diphenoxylate HCl/Atropine (Diphenoxylate Hcl/Atropine 1 Tablet) 1 tab PO Q4HP PRN PRN Reason: Diarrhea Last Admin: 02/26/22 20:55 Dose: 1 tab Documented by: Docusate Sodium (Docusate Sodium 100 Mg Capsule) 100 mg PO BID [facility] Last Admin: 02/27/22 09:18 Dose: Not Given Documented by: Enoxaparin Sodium (Enoxaparin 40 Mg/0.4 Ml Syringe) 40 mg SQ DAILY [facility] Last Admin: 02/27/22 09:18 Dose: 40 mg Documented by: Gabapentin (Gabapentin 300 Mg Capsule) 300 mg PO BID [facility] Last Admin: 02/27/22 09:18 Dose: 300 mg Documented by: Glucose (Dextrose 31 Gm Oral.Susp) 15 gm PO PRN PRN PRN Reason: Hypoglycemia Guaifenesin (Guaifenesin 600 Mg Tab.Sr.12h) 600 mg PO BIDP PRN PRN Reason: Congestion Last Admin: 02/27/22 11:02 Dose: 600 mg Documented by: Azithromycin 250 mg/ Dextrose 250 mls @ 250 mls/hr IV Q24H [facility]; Protocol Stop: 02/28/22 09:59 Last Infusion: 02/27/22 10:52 Dose: Infused Documented by: REMDESIVIR 100 mg/ Sodium (Chloride) 250 mls @ 500 mls/hr IV Q24H [facility] Stop: 03/02/22 10:29 Last Admin: 02/27/22 10:52 Dose: 500 mls/hr Documented by: Ibuprofen (Ibuprofen 600 Mg Tablet) 600 mg PO TIDP PRN; Protocol PRN Reason: Pain/Fever > 100.4 Last Admin: 02/25/22 22:14 Dose: 600 mg Documented by: Insulin Human Lispro (Insulin Lispro 1 Unit/0.01 Ml Unit) 0 unit SQ ACHS [facility]; Protocol Last Admin: 02/27/22 11:14 Dose: 9 units Documented by: Ondansetron HCl (Ondansetron 4 Mg/2 Ml Vial) 4 mg IV Q6HP PRN PRN Reason: Nausea And Vomiting Senna (Sennosides 1 Tablet) 2 tab PO HS [facility] Last Admin: 02/26/22 19:21 Dose: Not Given Documented by: Sodium Chloride (0.9 % Sodium Chloride 10 Ml Syringe) 10 ml IV Q8 [facility] Last Admin: 02/27/22 04:48 Dose: Not Given Documented by: A/P Assessment and plan (1) Fall: Status: Acute (2) Closed head injury: Status: Acute (3) LLL pneumonia: Status: Acute Qualifiers: Pneumonia type: due to unspecified organism Qualified Code(s): J18.9 - Pneumonia, unspecified organism (4) Sepsis: Status: Acute Qualifiers: Sepsis acute organ dysfunction status: without acute organ dysfunction Sepsis type: sepsis due to unspecified organism Qualified Code(s): A41.9 - Sepsis, unspecified organism (5) DM2 (diabetes mellitus, type 2): Status: Acute (6) CAD (coronary artery disease): Status: Acute (7) MARIN (acute kidney injury): Status: Acute (8) Lactic acidosis: Status: Acute Narrative A/P Narrative: The patient is being treated for sepsis due to respiratory etiology. Chest x- ray confirmed left lobar pneumonia. She was found to have an elevated white blood cell count of 19,000, lactic acid of 2.6, and a creatinine of 2.1. In the setting of sepsis, will hold the patient's home amlodipine, Toprol-XL, valsartan, and especially her chlorthalidone. We will resuscitate her with IV fluids and continue ceftriaxone and Zithromax. We will follow-up on blood cultures, and respiratory panel including COVID-19. Continue to monitor fever curve. We will repeat her lactic acid to make sure that this is resolving. 02/26: The patient's O2 sat was 91% this morning and her COVID PCR came back positive. Discussed the case with pharmacy and she will be started on remdesivir infusion. She does not meet criteria for dexamethasone. We will st art duo nebs, and Pulmicort twice daily. Because the patient has been sick for nearly a month, there may be a component of underlying bacterial infection and will continue antibiotics for community-acquired pneumonia. Continue to trend white blood cell count which is coming down and is 15.9 today. 02/27: The patient remains stable on ambient air. Her white blood cell count is slightly elevated at 17 and her creatinine has nearly normalized to 1.2. We will discontinue IV fluids. Continue management as above. She will likely need to go to a longterm facility for rehabilitation. Time Spent With Patient Time: Total time spent is greater than 50% in coordination of care (as documented) at patient's floor/unit and/or counseling patient: Total time spent with greater than 50% in coordination of care (as documented) at patient's floor/unit and/or counseling patient:: 25 - 35 minutes QUALITY VTE Deep Vein Thrombosis/Pulmonary Embolism Present on Admission: No
[2022-02-27] MEDS: SENNOSIDES 1 TABLET PO SCH (20:58)
[2022-02-28] MEDS: IPRATROPIUM/ALBUTEROL 3 ML AMPUL.NEB NEB SCH ×4 (00:28→19:33)
[2022-02-28] MEDS: ACETAMINOPHEN 325 MG TABLET PO PRN ×2 (03:47→21:18)
[2022-02-28] MEDS: 0.9 % SODIUM CHLORIDE 10 ML SYRINGE IV SCH ×3 (05:50→20:49)
[2022-02-28] MEDS: INSULIN LISPRO 1 UNIT/0.01 ML UNIT SQ SCH ×4 (07:44→20:47)
[2022-02-28] MEDS: BUDESONIDE 0.5 MG/2 ML AMPUL.NEB NEB SCH ×2 (07:46→19:33)
[2022-02-28 07:54] LABS: ALT/SGPT 15 U/L (<40); AST/SGOT 19 U/L (<32); Albumin 2.5 gm/dL (3.2-5.2); Albumin/Globulin Ratio 0.7 (1.0-2.3); Alkaline Phosphatase 92 U/L (39-117); Bilirubin,Direct < 0.2 mg/dL (0-0.3); Bilirubin,Total 0.2 mg/dL (0.1-1.0); Blood Urea Nitrogen 27 mg/dL (8-23); Carbon Dioxide 20 mmol/L (22-30); Chloride 100 mmol/L (96-108); Globulin 3.4 gm/dL (2.2-3.7); Glomerular Filtration Rate 42; Glucose 169 mg/dL (70-105); Lactate Dehydrogenase 297 U/L (135-225); Phosphorous 3.6 mg/dL (2.5-4.5); Triglycerides 180 mg/dL (<150); Uric Acid 9.1 mg/dL (2.5-8.0)
--- NOTE | 2022-02-28 08:57 | Internal Med Progress Note ---
SUBJECTIVE Subjective Patient information: Note initiated : 02/28/22 at 8:55 am Service Date, if different from initiated Date: [as above] Patient: Jim Butler 81 y/o F admitted on 02/25/22 for weakness. Chief Complaint: [SOB] Principal diagnosis: Shortness of breath, COVID-19, CAP Interval history: The patient was resting comfortably in bed. She worked with physical therapy this morning. She had no active complaints or concerns. We discussed disposition. Constitutional Vitals: Vital Signs Temp Pulse Resp BP Pulse Ox 97.7 F 75 16 141/62 93 02/28/22 07:25 02/28/22 07:47 02/28/22 07:47 02/28/22 07:25 02/28/22 07:25 Period Temp Pulse Resp BP Sys/Calderon Pulse Ox Last 24 Hr 97.7 F-99.3 F 75-110 16-24 139-177/62-78 90-95 Intake and Output 02/27/22 02/28/22 02/28/22 21:59 05:59 13:59 Intake Total 590 240 Output Total 1 Balance 590 239 Weight 80.377 kg Intake & Output: Intake & Output 02/27/22 02/28/22 02/28/22 21:59 05:59 13:59 Intake Total 590 240 Output Total 1 Balance 590 239 Weight 80.377 kg Intake: Oral 590 240 Output: # of times incontinent of urine 1 Other: Meal Lunch Percent of Meal Consumed 25% Feeding Ability Assist with Tray Set Up # Voids 2 Head Head exam: Present atraumatic and normal inspection Eye Eye exam: Present normal appearance ENT ENT exam: Present mucous membranes moist, normal exam and normal external ear exam Neck Neck exam: Present normal inspection Respiratory Respiratory exam: Present normal respiratory exam Cardiovascular Cardiovascular exam: Present normal rate and rhythm GI/Abdominal GI/Abdominal exam: Present normal bowel sounds Back Exam Back exam: Present normal inspection Neurological Exam Neurological exam: Present alert and oriented X3 Skin Skin exam: Present intact and warm OBJ DATA Labs CBC & Chem 7: 02/27/22 05:16 02/28/22 07:02 Labs: Abnormal Lab Results 02/28/22 02/27/22 02/27/22 07:02 05:16 05:16 WBC 17.2 H RBC 3.11 L Hgb 8.1 L Hct 26.0 L MCH MCHC RDW 15.9 H Neut % (Auto) 78.4 H Lymph % (Auto) 9.9 L [place] # (Auto) 1.51 H Absolute Neutrophils 13.43 H POC VBG pCO2 at Temp POC VBG HCO3 POC VBG Total CO2 POC VBG Base Excess VBG Lactic Acid Sodium Chloride Carbon Dioxide 20 L Anion Gap BUN 27 H 37 H Creatinine 1.2 H 1.2 H Glucose 169 H 130 H POC Venous Lactate Uric Acid 9.1 H Magnesium 1.5 L GGT 82 H Lactate Dehydrogenase 297 H NT-Pro-B Natriuret Pep Albumin 2.5 L 2.8 L Globulin Albumin/Globulin Ratio 0.7 L 0.8 L Triglycerides 180 H Procalcitonin 02/26/22 02/26/22 02/25/22 05:07 05:07 09:43 WBC 15.9 H RBC 3.21 L Hgb 8.4 L Hct 26.5 L MCH MCHC RDW 15.7 H Neut % (Auto) Lymph % (Auto) 13.0 L [place] # (Auto) 1.81 H Absolute Neutrophils 11.88 H POC VBG pCO2 at Temp 31.6 L POC VBG HCO3 18.9 L POC VBG Total CO2 20.0 L POC VBG Base Excess -6.0 L VBG Lactic Acid Sodium Chloride Carbon Dioxide 21 L Anion Gap BUN 56 H Creatinine 1.6 H Glucose 162 H POC Venous Lactate 2.6 H Uric Acid Magnesium GGT Lactate Dehydrogenase NT-Pro-B Natriuret Pep Albumin Globulin Albumin/Globulin Ratio Triglycerides Procalcitonin 02/25/22 02/25/22 02/25/22 09:38 09:38 09:38 WBC 19.3 H RBC Hgb 9.6 L Hct 31.7 L MCH 25.9 L MCHC 30.3 L RDW 16.0 H Neut % (Auto) Lymph % (Auto) [place] # (Auto) 3.18 H Absolute Neutrophils 13.18 H POC VBG pCO2 at Temp POC VBG HCO3 POC VBG Total CO2 POC VBG Base Excess VBG Lactic Acid 2.1 H Sodium 132 L Chloride 94 L Carbon Dioxide 17 L Anion Gap 21.0 H BUN 62 H Creatinine 2.1 H Glucose 308 H POC Venous Lactate Uric Acid Magnesium GGT Lactate Dehydrogenase NT-Pro-B Natriuret Pep 1504.0 H Albumin Globulin 4.1 H Albumin/Globulin Ratio 0.9 L Triglycerides Procalcitonin 0.36 H Meds: Medications Acetaminophen (Acetaminophen 325 Mg Tablet) 650 mg PO Q6HP PRN; Protocol PRN Reason: Per Pain Protocol/Fever > 101 Last Admin: 02/28/22 03:47 Dose: 650 mg Documented by: Albuterol Sulfate (Albuterol Sulfate 2.5 Mg/3 Ml Nebulizer) 2.5 mg NEB Q2HP PRN PRN Reason: Shortness Of Breath Last Admin: 02/25/22 19:54 Dose: 2.5 mg Documented by: Albuterol/Ipratropium (Ipratropium/Albuterol 3 Ml Ampul.Neb) 3 ml NEB Q6HRT [facility] Last Admin: 02/28/22 07:46 Dose: 3 ml Documented by: Benzonatate (Benzonatate 100 Mg Capsule) 100 mg PO TIDP PRN PRN Reason: Cough Last Admin: 02/27/22 11:02 Dose: 100 mg Documented by: Budesonide (Budesonide 0.5 Mg/2 Ml Ampul.Neb) 0.5 mg NEB Q12 [facility] Last Admin: 02/28/22 07:46 Dose: 0.5 mg Documented by: Ceftriaxone Sodium (Ceftriaxone 1 Gm Vial) 1 gm IV Q24H [facility] Last Admin: 02/27/22 09:17 Dose: 1 gm Documented by: Dextrose (Dextrose 50% 50 Ml Vial) 0 ml IV UD PRN PRN Reason: Per Sliding Scale Diagnostic Test (Pha) (Accu-Chek 1 Each Strip) 1 each FS ACHS [facility] Last Admin: 02/28/22 07:44 Dose: 1 each Documented by: Diphenoxylate HCl/Atropine (Diphenoxylate Hcl/Atropine 1 Tablet) 1 tab PO Q4HP PRN PRN Reason: Diarrhea Last Admin: 02/26/22 20:55 Dose: 1 tab Documented by: Docusate Sodium (Docusate Sodium 100 Mg Capsule) 100 mg PO BID [facility] Last Admin: 02/27/22 20:58 Dose: Not Given Documented by: Enoxaparin Sodium (Enoxaparin 40 Mg/0.4 Ml Syringe) 40 mg SQ DAILY [facility] Last Admin: 02/27/22 09:18 Dose: 40 mg Documented by: Gabapentin (Gabapentin 300 Mg Capsule) 300 mg PO BID [facility] Last Admin: 02/27/22 20:16 Dose: 300 mg Documented by: Glucose (Dextrose 31 Gm Oral.Susp) 15 gm PO PRN PRN PRN Reason: Hypoglycemia Guaifenesin (Guaifenesin 600 Mg Tab.Sr.12h) 600 mg PO BIDP PRN PRN Reason: Congestion Last Admin: 02/27/22 11:02 Dose: 600 mg Documented by: Azithromycin 250 mg/ Dextrose 250 mls @ 250 mls/hr IV Q24H [facility]; Protocol Stop: 02/28/22 09:59 Last Infusion: 02/27/22 10:52 Dose: Infused Documented by: REMDESIVIR 100 mg/ Sodium (Chloride) 250 mls @ 500 mls/hr IV Q24H [facility] Stop: 03/02/22 10:29 Last Infusion: 02/27/22 11:34 Dose: Infused Documented by: Ibuprofen (Ibuprofen 600 Mg Tablet) 600 mg PO TIDP PRN; Protocol PRN Reason: Pain/Fever > 100.4 Last Admin: 02/25/22 22:14 Dose: 600 mg Documented by: Insulin Human Lispro (Insulin Lispro 1 Unit/0.01 Ml Unit) 0 unit SQ [facility]; Protocol Last Admin: 02/28/22 07:44 Dose: Not Given Documented by: Ondansetron HCl (Ondansetron 4 Mg/2 Ml Vial) 4 mg IV Q6HP PRN PRN Reason: Nausea And Vomiting Senna (Sennosides 1 Tablet) 2 tab PO HS [facility] Last Admin: 02/27/22 20:58 Dose: Not Given Documented by: Sodium Chloride (0.9 % Sodium Chloride 10 Ml Syringe) 10 ml IV Q8 [facility] Last Admin: 02/28/22 05:50 Dose: 10 ml Documented by: A/P Assessment and plan (1) Fall: Status: Acute (2) Closed head injury: Status: Acute (3) LLL pneumonia: Status: Acute Qualifiers: Pneumonia type: due to unspecified organism Qualified Code(s): J18.9 - Pneumonia, unspecified organism (4) Sepsis: Status: Acute Qualifiers: Sepsis acute organ dysfunction status: without acute organ dysfunction Sepsis type: sepsis due to unspecified organism Qualified Code(s): A41.9 - Sepsis, unspecified organism (5) DM2 (diabetes mellitus, type 2): Status: Acute (6) CAD (coronary artery disease): Status: Acute (7) MARIN (acute kidney injury): Status: Acute (8) Lactic acidosis: Status: Acute Narrative A/P Narrative: The patient is being treated for sepsis due to respiratory etiology. Chest x- ray confirmed left lobar pneumonia. She was found to have an elevated white blood cell count of 19,000, lactic acid of 2.6, and a creatinine of 2.1. In the setting of sepsis, will hold the patient's home amlodipine, Toprol-XL, sendy sartan, and especially her chlorthalidone. We will resuscitate her with IV fluids and continue ceftriaxone and Zithromax. We will follow-up on blood cultures, and respiratory panel including COVID-19. Continue to monitor fever curve. We will repeat her lactic acid to make sure that this is resolving. 02/26: The patient's O2 sat was 91% this morning and her COVID PCR came back positive. Discussed the case with pharmacy and she will be started on remdesivir infusion. She does not meet criteria for dexamethasone. We will start duo nebs, and Pulmicort twice daily. Because the patient has been sick for nearly a month, there may be a component of underlying bacterial infection and will continue antibiotics for community-acquired pneumonia. Continue to trend white blood cell count which is coming down and is 15.9 today. 02/27: The patient remains stable on ambient air. Her white blood cell count is slightly elevated at 17 and her creatinine has nearly normalized to 1.2. We will discontinue IV fluids. Continue management as above. She will likely need to go to a longterm facility for rehabilitation. 02/28: The patient is getting better day by day. At this point, she continues to work with PT/OT and will discuss disposition during our multidisciplinary discharge rounds at 930 this morning. Continue management as above. Time Spent With Patient Time: Total time spent is greater than 50% in coordination of care (as documented) at patient's floor/unit and/or counseling patient: Total time spent with greater than 50% in coordination of care (as documented) at patient's floor/unit and/or counseling patient:: 25 - 35 minutes QUALITY VTE Deep Vein Thrombosis/Pulmonary Embolism Present on Admission: No
[2022-02-28] MEDS: GABAPENTIN 300 MG CAPSULE PO SCH ×2 (09:06→20:49)
[2022-02-28] MEDS: DOCUSATE SODIUM 100 MG CAPSULE PO SCH ×2 (09:06→20:48)
[2022-02-28] MEDS: ENOXAPARIN 40 MG/0.4 ML SYRINGE SQ SCH (09:06)
[2022-02-28] MEDS: cefTRIAXone 1 GM VIAL IV SCH (09:06)
[2022-02-28] MEDS: AZITHROMYCIN 250 MG in DEXTROSE 5% IN WATER 250 ML IV SCH (09:07)
[2022-02-28] MEDS: REMDESIVIR 100 MG in 0.9 % SODIUM CHLORIDE 250 ML IV SCH (10:25)
[2022-02-28 11:35] LABS: Basophils # (Auto) 0.02 K/mcL (0.00-0.30); Basophils % (Auto) 0.1 % (0.0-2.0); Eosinophils # (Auto) 0.29 K/mcL (0.00-0.70); Hematocrit 27.3 % (34.1-44.9); Hemoglobin 8.3 g/dL (11.2-15.7); Lymphocytes % (Auto) 13.3 % (15.5-49.0); Mean Cell Volume 84.3 fL (80.0-100.0); Mean Corpuscular HGB Conc 30.4 g/dL (31.0-36.0); Mean Platelet Volume 10.4 fL (7.4-10.4); Monocytes # (Auto) 1.56 K/mcL (0.10-0.90); Monocytes % (Auto) 10.9 % (1.0-12.0); Neutrophils % (Auto) 73.7 % (38.0-78.0); Platelet Count 330 K/mcL (140-440); RBC 3.24 M/mcL (3.59-5.38); WBC 14.3 K/mcL (4.5-11.0)
[2022-02-28] MEDS: SENNOSIDES 1 TABLET PO SCH (20:49)
[2022-02-28] MEDS: BENZONATATE 100 MG CAPSULE PO PRN (21:16)
[2022-03-01] MEDS: IPRATROPIUM/ALBUTEROL 3 ML AMPUL.NEB NEB SCH ×2 (02:12→08:07)
[2022-03-01] MEDS: 0.9 % SODIUM CHLORIDE 10 ML SYRINGE IV SCH (05:21)
[2022-03-01] MEDS: BUDESONIDE 0.5 MG/2 ML AMPUL.NEB NEB SCH (08:07)
[2022-03-01] MEDS: GABAPENTIN 300 MG CAPSULE PO SCH (08:11)
[2022-03-01] MEDS: INSULIN LISPRO 1 UNIT/0.01 ML UNIT SQ SCH ×2 (08:11→10:45)
[2022-03-01] MEDS: ENOXAPARIN 40 MG/0.4 ML SYRINGE SQ SCH (08:11)
[2022-03-01] MEDS: DOCUSATE SODIUM 100 MG CAPSULE PO SCH (08:12)
[2022-03-01] MEDS: cefTRIAXone 1 GM VIAL IV SCH (09:05)
--- NOTE | 2022-03-01 09:19 | Discharge Summary ---
Discharge Provider Provider Patient information: Note initiated : 03/01/22 at 9:19 am Service Date, if different from initiated Date: [as above] Patient: Jim Butler 81 y/o F admitted on 02/25/22 for weakness. Chief Complaint: [SOB, weakness] Date of admission: 02/25/22 14:35 Discharge date: 03/01/22 Primary care physician: Bar Catalan Consults: 02/25/22 Consult to Physician [CONS] Stat Comment: Consulting Provider: Santos Grace Reason For Exam: Physician to Consult Discharging clinician: Santos Grace Discharge Meds Discharge Medications Home Medications amlodipine 10 mg tablet 10 mg PO QDAY 02/25/22 [History Confirmed 02/25/22 Last Taken Unknown] aspirin 325 mg tablet 325 mg PO QDAY 02/25/22 [History Confirmed 02/25/22 Last Taken Unknown] gabapentin 300 mg capsule 300 mg PO QID 02/25/22 [History Confirmed 02/25/22 Last Taken Unknown] insulin glargine 100 unit/mL (3 mL) subcutaneous pen (Lantus Solostar U-100 Insulin) 56 unit SUBCUT DAILY 02/25/22 [History Confirmed 02/25/22 Last Taken Unknown] insulin lispro 100 unit/mL subcutaneous pen (Humalog KwikPen (U-100) Insulin) 20 - 24 unit SUBCUT TID 02/25/22 [History Confirmed 02/25/22 Last Taken Unknown] metoprolol succinate 100 mg tablet,extended release 24 hr (Toprol XL) 100 mg PO QDAY 02/25/22 [History Confirmed 02/25/22 Last Taken Unknown] omega-3 339 mg-dha and epa 314 mg-fish and krill oil 500 mg capsule (MegaRed Advanced 4-in-1) 1 cap PO DAILY 02/25/22 [History Confirmed 02/25/22 Last Taken Unknown] omeprazole 20 mg capsule,delayed release 20 mg PO QDAY 02/25/22 [History Confirmed 02/25/22 Last Taken Unknown] valsartan 80 mg tablet 80 mg PO QDAY 02/25/22 [History Confirmed 02/25/22 Last Taken Unknown] albuterol sulfate 90 mcg/actuation aerosol inhaler 2 puff INHALATION Q6H PRN #8.5 g 03/01/22 [Rx Last Taken Unknown] azithromycin 250 mg tablet (Zithromax Z-Olegario) 250 mg PO QDAY 4 Days #4 tab 03/01/22 [Rx Last Taken Unknown] COURSE Hospital Course Hospital course: Ms. Butler is a 81 year old F with a complex past medical history significant for CAD, hypertension, hyperlipidemia and insulin-dependent diabetes who presents to the hospital with progressive shortness of breath and weakness. The patient states that she has been feeling unwell for nearly a month. She is went to her primary care physician several times and was told that she needed to possibly go to a rehab facility for strengthening conditioning. She went back recently to her PCP and was prescribed diuretics for suspected pulmonary edema. Her condition continued to worsen. She denied any fevers or chills, but does have a productive cough. She states that she lives at home with her daughter. Her son came over and thought she looked quite weak and decided to call EMS. On presentation, she was hemodynamically stable and afebrile with a blood pressure of 143/75, heart rate of 89, and O2 sat of 93% on ambient air. Her labs revealed a white blood cell count of 19.3, lactic acid of 2.1, and creatinine of 2.6. Her glucose was 308. Blood cultures and COVID-19 are pending. Chest x- ray was concerning for lower lobe infiltrate. She was empirically given 1 L normal saline, and also prescribed ceftriaxone and Zithromax. The hospital service was asked to admit the patient for further management evaluation of her sepsis in the setting of community-acquired pneumonia. The patient is being treated for sepsis due to respiratory etiology. Chest x- ray confirmed left lobar pneumonia. She was found to have an elevated white blood cell count of 19,000, lactic acid of 2.6, and a creatinine of 2.1. In the setting of sepsis, will hold the patient's home amlodipine, Toprol-XL, valsartan, and especially her chlorthalidone. We will resuscitate her with IV fluids and continue ceftriaxone and Zithromax. We will follow-up on blood cultures, and respiratory panel including COVID-19. Continue to monitor fever curve. We will repeat her lactic acid to make sure that this is resolving. 02/26: The patient's O2 sat was 91% this morning and her COVID PCR came back positive. Discussed the case with pharmacy and she will be started on remdesivir infusion. She does not meet criteria for dexamethasone. We will start duo nebs, and Pulmicort twice daily. Because the patient has been sick for nearly a month, there may be a component of underlying bacterial infection and will continue antibiotics for community-acquired pneumonia. Continue to trend white blood cell count which is coming down and is 15.9 today. 02/27: The patient remains stable on ambient air. Her white blood cell count is slightly elevated at 17 and her creatinine has nearly normalized to 1.2. We will discontinue IV fluids. Continue management as above. She will likely need to go to a correction facility for rehabilitation. 02/28: The patient is getting better day by day. At this point, she continues to work with PT/OT and will discuss disposition during our multidisciplinary discharge rounds at 930 this morning. Continue management as above. 03/01: The patient has completed 3 days of remdesivir for SARS COVID-19. This was a short course for nonsevere infection. She never required supplemental O2. She was also treated for suspected overlapping bacterial infection with ceftriaxone and Z-Olegario. She will complete her 5-day course of Zithromax upon discharge and will also be prescribed albuterol. In the setting of acute kidney dysfunction, and recent pneumonia, her chlorthalidone has been discontinued. She is to follow-up with her primary care physician within 1 week's time. She will continue to quarantine for total of 10 days. Discharge diagnosis: SARS-CoV2, MARIN Time Spent with Patient Time attestation: Total time spent providing and/or coordinating discharge services: EXAM Constitutional Vitals: Temp Pulse Resp BP Pulse Ox 98.6 F 85 16 150/72 92 03/01/22 07:29 03/01/22 08:09 03/01/22 08:09 03/01/22 07:29 03/01/22 08:09 General appearance: average body habitus Head Head exam: Present atraumatic, normal inspection and normocephalic Eye Eye exam: Present EOMI, normal appearance and PERRL; Absent conjunctival injection ENT ENT exam: Present normal exam; Absent mucous membranes dry Neck Neck exam: Present full ROM; Absent lymphadenopathy Respiratory Respiratory exam: Present normal respiratory exam and CTAB; Absent decreased breath sounds, respiratory distress or wheezes Cardiovascular Cardiovascular exam: Present normal rate and rhythm and RRR; Absent JVD GI/Abdominal GI/Abdominal exam: Present normal bowel sounds and soft; Absent diminished bowel sounds, distended, guarding, mass, rebound or tenderness Neurological Exam Neurological exam: Present alert, CN II-XII intact and oriented X3 Psychiatric Psychiatric exam: Present normal affect and normal mood Skin Skin exam: Present intact and warm; Absent erythema, pallor, petechiae or rash Discharge Data Data Completed and Pending Labs on day of discharge: Labs from last 24 hours 02/28/22 08:22 WBC 14.3 H RBC 3.24 L Hgb 8.3 L Hct 27.3 L MCV 84.3 MCH 25.6 L MCHC 30.4 L RDW 16.0 H Plt Count 330 MPV 10.4 Neut % (Auto) 73.7 Lymph % (Auto) 13.3 L [place] % (Auto) 10.9 Eos % (Auto) 2.0 Baso % (Auto) 0.1 Lymph # (Auto) 1.90 [place] # (Auto) 1.56 H Eos # (Auto) 0.29 Baso # (Auto) 0.02 Absolute Neutrophils 10.50 H Preliminary micro results at discharge 02/25/22 09:08 Blood Culture - Preliminary Blood 02/25/22 09:43 Blood Culture - Preliminary Blood Discharge Plan Patient/Caregiver Discharge Instructions Activity: as per physical therapy Diet: Regular Diet Prescriptions: New albuterol sulfate 90 mcg/actuation HFA aerosol inhaler 2 puff inhalation Q6H PRN (Reason: shortness of breath or wheezing) Qty: 8.5 0RF azithromycin [Zithromax Z-Olegario] 250 mg tablet 250 mg PO QDAY 4 Days Qty: 4 0RF Rx Instructions: start on day 2 of therapy Continued aspirin 325 mg Tablet 325 mg PO QDAY 0RF metoprolol succinate [Toprol XL] 100 mg Tablet Extended Release 24 Hr 100 mg PO QDAY 0RF valsartan 80 mg Tablet 80 mg PO QDAY 0RF amlodipine 10 mg Tablet 10 mg PO QDAY 0RF gabapentin 300 mg Capsule 300 mg PO QID 0RF omeprazole 20 mg Capsule,Delayed Release(Dr/Ec) 20 mg PO QDAY 0RF insulin lispro [Humalog KwikPen Insulin] 100 unit/mL Insulin Pen 20 - 24 unit SUBCUT TID 0RF Lantus Solostar U-100 Insulin 100 unit/mL (3 mL) Insulin Pen 56 unit SUBCUT DAILY 0RF omega 4-bmz-iec-fish oil-krill [MegaRed Advanced 4-in-1] 339 mg-314 mg- 500 mg Capsule 1 cap PO DAILY 0RF Discontinued promethazine-DM 6.25-15 mg/5 mL Syrup 5 ml PO HS PRN (Reason: Nausea) 0RF chlorthalidone 25 mg Tablet 25 mg PO QDAY 0RF Follow Up Plan Follow up with: Bar Catalan [Primary Care Provider] - Patient Disposition: Home Health Service Rehab Potential: Good I certify that the patient requires SNF services: No Overall status at discharge: patient is progressing back to baseline Discharge Orders: Discharge Order (Routine); Ordered 03/01/22 Ordered By: Santos TRAVIS VTE Deep Vein Thrombosis/Pulmonary Embolism Present on Admission: No
[2022-03-01] MEDS: REMDESIVIR 100 MG in 0.9 % SODIUM CHLORIDE 250 ML IV SCH (10:03)
== END 2022-03-01 13:15 | disposition home health service (06) | DRG 871 ==
LOC: ED 09:27 → MEDSUR 14:35
PROVIDERS: ADMIT Student in an Organized Health Care Education/Training Program; ATTEND Student in an Organized Health Care Education/Training Program

== ENCOUNTER 2022-04-12 05:29 | Inpatient (IN) ==
[2022-04-12] MEDS ORDERED: DEXAMETHASONE 10 MG/ML VIAL IV ONE (05:37)
[2022-04-12] MEDS ORDERED: ALBUTEROL SULFATE 2.5 MG/3 ML NEBULIZER NEB ONE (05:37)
[2022-04-12] MEDS ORDERED: IPRATROPIUM/ALBUTEROL 3 ML AMPUL.NEB NEB ONE ×2 (05:37→07:17)
--- NOTE | 2022-04-12 05:43 | Emergency Department Note ---
SOB HPI General Chief Complaint: Shortness of Breath/Dyspnea Stated Complaint: Shortness of breath Time Seen by Provider: 04/12/22 06:45 Source: patient Mode of arrival: wheelchair Limitations: no limitations History of Present Illness HPI Narrative: Patient with history of CHF, coronary artery disease and CABG who was recently admitted to the hospital for acute kidney injury COVID-19 infection with possible concomitant bacterial pneumonia arrives by private auto for acutely worsening dyspnea in the night prior to arrival. States been persistent since COVID-19 diagnosis, is prescribed albuterol inhaler but has not been using as she has difficulty using it, denies any known history of COPD or reactive airway disease prior to COVID-19 diagnosis, patient was never smoker but lives in a household with her who extensively smoked inside the home. Denies any productive cough or hemoptysis. Although reported history of CHF is not currently on any diuretic as it was held upon her recent discharge. Has not followed with sheet metal erector in some time. Patient does have some lower extremity edema but states that improves with elevation does not feel significantly more swollen than she does at baseline. Upon arrival patient was found be hypoxic into the 70s SPO2 but was awake and alert. Has had some recent issues with constipation. Patient denies current CP, fever, chills, abdominal pain, n/v/, focal acute weakness, loss/change of sensation, asymmetric extremity swelling, calf pain, history of DVT or PE, or any other complaints at this time. PMH/PSHx/Meds/Allergies/SH/FH as per nursing documentation and reviewed. A full 10 point review of systems reviewed and negative except as noted in HPI. Related Data Home Medications Medication Instructions Recorded Confirmed amlodipine 10 mg tablet 10 mg PO QDAY 02/25/22 04/12/22 aspirin 325 mg tablet 325 mg PO QDAY 02/25/22 04/12/22 gabapentin 300 mg capsule 300 mg PO QID 02/25/22 04/12/22 insulin glargine 100 unit/mL (3 56 unit SUBCUT DAILY 02/25/22 04/12/22 mL) subcutaneous pen (Lantus Solostar U-100 Insulin) insulin lispro 100 unit/mL 20 - 24 unit SUBCUT TID 02/25/22 04/12/22 subcutaneous pen (Humalog KwikPen (U-100) Insulin) metoprolol succinate 100 mg 100 mg PO QDAY 02/25/22 04/12/22 tablet,extended release 24 hr (Toprol XL) omega-3 339 mg-dha and epa 314 1 cap PO DAILY 02/25/22 04/12/22 mg-fish and krill oil 500 mg capsule ([employer]ega[employer] Advanced 4-in-1) omeprazole 20 mg capsule,delayed 20 mg PO QDAY 02/25/22 04/12/22 release valsartan 80 mg tablet 80 mg PO QDAY 02/25/22 04/12/22 Eliquis 2.5 mg PO Q2 04/12/22 04/12/22 chlorthalidone 25 mg PO QDAY 04/12/22 04/12/22 furosemide 40 mg PO QDAY 04/12/22 04/12/22 hydrocodone-acetaminophen 5 - 325 mg PO QDAY 04/12/22 04/12/22 Previous Rx's Medication Instructions Recorded albuterol sulfate 90 mcg/actuation 2 puff INHALATION Q6H PRN #8.5 g 03/01/22 aerosol inhaler Allergies Allergy/AdvReac Type Severity Reaction Status Date / Time codeine Allergy Intermediate Swelling Verified 02/25/22 14:26 pantoprazole [From Protonix] Allergy Intermediate Swelling Verified 04/12/22 05 :33 of Lip/Tongue/Throat Review of Systems ROS ROS Narrative: See HPI PFSH Narrative Patient History Narrative: Narrative: Medical/Surgical/Family History All Active Problems (Updated 04/12/22 @ 08:45 by Maurice Schmitz MD) Chronic kidney disease (CKD) stage G3a/A1, moderately decreased glomerular filtration rate (GFR) between 45-59 mL/min/1.73 square meter and albuminuria creatinine ratio less than 30 mg/g (Acute) COPD exacerbation (Acute) Anemia, normocytic normochromic (Acute) Acute dyspnea (Acute) Hypoxia (Acute) Chronic anemia (Acute) CHF exacerbation (Acute) Wheezing (Acute) Lactic acidosis (Acute) MARIN (acute kidney injury) (Acute) CAD (coronary artery disease) (Acute) DM2 (diabetes mellitus, type 2) (Acute) Foot pain, right (Acute) Fall (Acute) Closed head injury (Acute) LLL pneumonia (Acute) Sepsis (Acute) COVID-19 (Acute) Social History Smoking Status: Never smoker Exam Narrative Narrative: PHYSICIAL EXAM: Vitals reviewed GENERAL: Appears in distress, nondiaphoretic, awake and alert,, The patient appears nourished and normally developed. Vital signs as documented. EYES: Head exam is unremarkable. No scleral icterus HEENT: Mucous membranes moist. Nares patent without copious rhinorrhea. , controlling secretions well LUNGS: Slight expiratory wheezing bilateral lung brown with very poor chest excursion, no crackles, tachypneic, maintaining adequate SPO2 on 4 L nasal cannula, speaking in brief phrases with conversational dyspnea, no active c oughing CARDIAC: Rhythm is regular. No dysrhythmias or murmurs. ABDOMEN: Soft, non-tender, non-distended, no rebound/guarding, with no obvious masses, no pulsatile mass, EXTREMITIES: 2+ bilateral nonpitting edema,, with no obvious deformities. No asymmetric swelling bilateral lower extremities, no calf pain to palpation, Well-perfused no cyanosis no clinical exam findings concerning for deep venous thrombosis SKIN: Good color, with no significant rashes. No pallor. NEURO: No obvious neurological deficits PSYCH: Mildly anxious appearing otherwise mood and affect normal. Appropriate for age. General Limitations: no limitations Course Reevaluation(s) Reevaluation #1: Upon arrival patient O2 sat low 70s, improving with supplemental oxygen patient has some diffuse wheezing poor chest excursion will give bronchodilators and high-dose acetaminophen as she is borderline febrile, high previous admission were found be COVID-positive patient was markedly elevated proBNP On 01/20/2022 1 evaluated for traumatic injury digital signs of mild bilateral dependent atelectasis Patient never smoker no history of COPD or asthma known, however she did with with her who was an extensive smoker and smoked in the house for many years Patient was prescribed inhaler albuterol at the time of discharge last but has trouble using it and did not time prior to arrival Time: 05:42 Reevaluation #2: Further chart review shows that while patient was admitted she was on a regimen of albuterol ipratropium nebulized treatments along with plan to initiate Pulmi rogelio, chest imaging obtained at those times did not show indication of pulmonary edema or CHF despite elevated proBNP chest xray today appears fluid overloaded patient states she had previous diagnosis of congestive heart failure however these were stopped due to kidney injury and sepsis upon recent admission Time: 06:08 Reevaluation #3: Patient feeling much improved with nebulized breathing treatment, oxygen requirements decreasing work of breathing improved, patient known to have chronic anemia for no distinct etiology, does not take iron pills because of waiting for constipation feel patient's oxygen saturation level respiratory symptoms multifactorial at this time due to fluid overload of lungs with concomitant reactive airway disease exacerbation in the setting of chronic anemia Hematocrit stable when trended, renal function near patient's baseline upon discharge, no elevation of serum lactate White blood cell count trended near patient's baseline, patient not acidotic does not seem consistent with sepsis presentation, and will not be given IV fluid bolus due to evidence of pulmonary vascular congestion on chest x-ray Time: 06:25 Additional Reevaluation(s): 0638 patient feels much improved after nebulized breathing treatment, patient having much improved chest excursion and now can hear audible wheezing, maintaining SPO2 sat of 98% on 2 L nasal cannula, will proceed to give diuretics, discussed with patient plan tentatively admit for cardiology evaluation if necessary 0656 pro bnp markedly elevated when compared to previous level consistant with expected pulmonary edema Vital Signs Vital signs: Vital Signs Temperature 99.2 F H 04/12/22 05:29 Pulse Rate 101 H 04/12/22 05:29 Respiratory Rate 30 H 04/12/22 05:29 Blood Pressure 150/67 04/12/22 05:29 Pulse Oximetry (%) 70 L 04/12/22 05:29 Temperature 98.0 F 04/12/22 19:09 Pulse Rate 90 04/12/22 22:21 Respiratory Rate 21 04/12/22 22:21 Blood Pressure 141/71 04/12/22 22:21 Pulse Oximetry (%) 94 04/12/22 22:21 [facility] Narrative Medical decision making narrative: All results/imaging obtained reviewed and interpreted, results trended/compared with previous levels if available to evaluate for abnormality contributing to todays presentation, Patient arrived hypoxic into the 70s SPO2, very poor chest excursion given bronchodilators breathing treatments IV Decadron with significant improvement, chest x-ray concerning for pulmonary edema IV Lasix given in addition, kidney function trended appears stable near patient's baseline Although on imaging during previous admission did not appear to show any evidence of congestive heart failure, feel likely secondary to patient's dehydrated status and acute kidney injury as she was likely soap drier tender than she has at baseline, and actually required some IV hydration on the previous occasion. After reviewing patients comorbidities, severity of history of presenting illness, labs and imaging if obtained in conjunction with physical exam and course in emergency department, deemed to have potential for deterioration/progression of symptoms that could lead to multiple morbidities or mortality, decision made that patient requires further observation/eval uation/treatment and patient admitted to appropriate service, patient/family understand and agree with plan. Chart created with voice recognition software, errors may be present due to softwares interpretation Lab Data Result diagrams: 04/12/22 05:49 Labs: Lab Results 04/12/22 04/12/22 04/12/22 Range/Units 05:49 05:49 05:49 WBC 15.4 H (4.5-11.0) K/mcL RBC 3.47 L (3.59-5.38) M/mcL Hgb 9.3 L (11.2-15.7) g/dL Hct 29.9 L (34.1-44.9) % POC Hct (36-48) MCV 86.2 (80.0-100.0) fL MCH 26.8 (26.0-34.0) pg MCHC 31.1 (31.0-36.0) g/dL RDW 15.9 H (11.5-14.5) % Plt Count 311 (140-440) K/mcL MPV 10.2 (7.4-10.4) fL Immature Gran % (Auto) 0.7 H (0.0-0.5) % Neut % (Auto) 76.8 (38.0-78.0) % Lymph % (Auto) 10.2 L (15.5-49.0) % [place] % (Auto) 11.5 (1.0-12.0) % Eos % (Auto) 0.5 (0.0-7.0) % Baso % (Auto) 0.3 (0.0-2.0) % Lymph # (Auto) 1.57 (1.50-4.80) K/mcL [place] # (Auto) 1.76 H (0.10-0.90) K/mcL Eos # (Auto) 0.07 (0.00-0.70) K/mcL Baso # (Auto) 0.04 (0.00-0.30) K/mcL Immature Gran # 0.10 H (0.00-0.05) K/mcl Absolute Neutrophils 11.93 H (1.80-8.00) K/mcL POC VBG pH (7.32-7.42) POC VBG pCO2 at Temp (41-51) POC VBG pO2 (25-40) POC VBG HCO3 (24-28) POC VBG Total CO2 (25-29) POC Venous O2 Sat (40-70) POC VBG Base Excess (-2-2) POC Sodium (133-145) POC Potassium (3.3-5.1) POC Chloride (96-108) POC Total CO2 (22-30) POC BUN (6-20) POC Creatinine (0.6-1.2) POC Glucose (70-105) Hemoglobin A1c 7.4 H (4.0-6.0) % Hgb Estim Average Glucose 166 mg/dL POC Venous Lactate (0.5-2) POC WB Ioniz Calcium (1.16-1.32) Magnesium 1.6 (1.6-2.5) mg/dL NT-Pro-B Natriuret Pep 4482.0 H (<450.0) pg/mL Beta-Hydroxybutyrate (<0.27) mmol/L 04/12/22 04/12/22 04/12/22 Range/Units 05:52 05:52 06:27 WBC (4.5-11.0) K/mcL RBC (3.59-5.38) M/mcL Hgb (11.2-15.7) g/dL Hct (34.1-44.9) % POC Hct 28.0 L (36-48) MCV (80.0-100.0) fL MCH (26.0-34.0) pg MCHC (31.0-36.0) g/dL RDW (11.5-14.5) % Plt Count (140-440) K/mcL MPV (7.4-10.4) fL Immature Gran % (Auto) (0.0-0.5) % Neut % (Auto) (38.0-78.0) % Lymph % (Auto) (15.5-49.0) % [place] % (Auto) (1.0-12.0) % Eos % (Auto) (0.0-7.0) % Baso % (Auto) (0.0-2.0) % Lymph # (Auto) (1.50-4.80) K/mcL [place] # (Auto) (0.10-0.90) K/mcL Eos # (Auto) (0.00-0.70) K/mcL Baso # (Auto) (0.00-0.30) K/mcL Immature Gran # (0.00-0.05) K/mcl Absolute Neutrophils (1.80-8.00) K/mcL POC VBG pH 7.37 (7.32-7.42) POC VBG pCO2 at Temp 36.6 L (41-51) POC VBG pO2 30 (25-40) POC VBG HCO3 21.1 L (24-28) POC VBG Total CO2 22.0 L (25-29) POC Venous O2 Sat 55.0 (40-70) POC VBG Base Excess -4.0 L (-2-2) POC Sodium 139 (133-145) POC Potassium 4.5 (3.3-5.1) POC Chloride 107 (96-108) POC Total CO2 21.0 L (22-30) POC BUN 30 H (6-20) POC Creatinine 1.4 H (0.6-1.2) POC Glucose 308 H (70-105) Hemoglobin A1c (4.0-6.0) % Hgb Estim Average Glucose mg/dL POC Venous Lactate 1.3 (0.5-2) POC WB Ioniz Calcium 1.21 (1.16-1.32) Magnesium (1.6-2.5) mg/dL NT-Pro-B Natriuret Pep (<450.0) pg/mL Beta-Hydroxybutyrate 1.22 H (<0.27) mmol/L ED POC Tests ED POC Tests: KIMBERLY - Influenza A Negative KIMBERLY - Influenza B Negative EKG Data EKG #1: EKG attestation: Yes I reviewed and interpreted this EKG. EKG results narrative: Obtained 535 reviewed 536 Normal sinus rhythm no acute ST elevation depression or signs of acute ischemia rate 95 [place] 179 QRS 81 QT 376 QTC 473 no bundle branch block normal axis Grossly unchanged from EKG obtained 02/25/2022 Interpreted personally CC TIME Critical Care Time Critical Care Time: Yes Attestation: Due to the patient's symptoms on presentation. Need for frequent reassessment. Potential for deterioration. All ordered diagnostic testing results obtained were reviewed and interpreted, results trended/compared with previous levels if available to evaluate for abnormality/interval change contributing to todays presentation, supplemental oxygen as needed for hypoxia and acute respiratory failure, multiple nebulized albuterol and ipratropium treatments, IV Decadron, IV Lasix for pulmonary edema, blood gas review and interpretation and the time required for documentation in ED EMR Critical care time total 35 minutes. This did not include any separate billable procedures. Discharge Plan Patient/Caregiver Discharge Instructions Pt seen by FEED MILL TENDER/PA only: No Clinical Impression: Acute dyspnea, Hypoxia, Chronic anemia, CHF exacerbation, Wheezing Patient Disposition: Xfer As Inpt ([facility]) Condition: Fair Discharge Date/Time: 04/12/22 09:17
[2022-04-12] MEDS ORDERED: ACETAMINOPHEN 500 MG TABLET PO ONE (05:47)
[2022-04-12 05:55] LABS: POC Calcium, Ionized 1.21 (1.16-1.32); POC Creatinine 1.4 (0.6-1.2); POC Potassium 4.5 (3.3-5.1)
[2022-04-12] MEDS ORDERED: FUROSEMIDE 40 MG/4 ML VIAL IV ONE (06:13)
[2022-04-12 06:29] LABS: Basophils # (Auto) 0.04 K/mcL (0.00-0.30); Basophils % (Auto) 0.3 % (0.0-2.0); Eosinophils # (Auto) 0.07 K/mcL (0.00-0.70); Eosinophils % (Auto) 0.5 % (0.0-7.0); Hematocrit 29.9 % (34.1-44.9); Hemoglobin 9.3 g/dL (11.2-15.7); Lymphocytes # (Auto) 1.57 K/mcL (1.50-4.80); Lymphocytes % (Auto) 10.2 % (15.5-49.0); Mean Cell Volume 86.2 fL (80.0-100.0); Mean Corpuscular HGB Conc 31.1 g/dL (31.0-36.0); Mean Platelet Volume 10.2 fL (7.4-10.4); Monocytes # (Auto) 1.76 K/mcL (0.10-0.90); Monocytes % (Auto) 11.5 % (1.0-12.0); Neutrophils % (Auto) 76.8 % (38.0-78.0); Platelet Count 311 K/mcL (140-440); RBC 3.47 M/mcL (3.59-5.38); Red Cell Distribution Width 15.9 % (11.5-14.5); WBC 15.4 K/mcL (4.5-11.0)
[2022-04-12] MEDS ORDERED: DIAZEPAM 5 MG TABLET PO ONE (07:13)
--- NOTE | 2022-04-12 07:43 | XRay Report ---
HISTORY: Dyspnea, hypoxia, Covid infection in February FINDINGS: There are moderate diffuse alveolar infiltrates throughout both lungs. Lung volumes are normal. There is no lobar consolidation. No mass is detected. There is no pleural effusion. The heart size is normal. The patient has had a prior sternotomy performed. Large amount calcified plaque is present along the wall of the aorta. Comparison with the prior exam from 02/25/22 shows the pneumonia has become significantly worse Impression: moderately severe bilateral pneumonia Interpreted and Authenticated by: Danie Schmitt 04/12/22
--- NOTE | 2022-04-12 07:43 | Emergency Department Note ---
HPI General Chief complaint: Shortness of Breath/Dyspnea Stated complaint: Shortness of breath Time Seen by Provider: 04/12/22 06:45 Source: patient Mode of arrival: wheelchair Limitations: no limitations History of Present Illness HPI Narrative: Narrative: This patient was signed out to me by Dr Naqvi, for full details please see his H&P. In brief this 81 yo F w/ h/o CHF, likely COPD, CAD, DM2, recent admissi on for COVID p/w SOB and was hypoxic to the 70s. She was worked up and found to have cardiomegaly and pulmonary edema on CXR, along w/ elevated BNP c/w CHF exacerbation, likely d/t her being taken off diuretics during her last hospitalization. She was started on lasix w/ improvement noted. She was also found to have wheezes and decreased air entry, both of which improved w/ nebs and decadron. She was noted to have a leukocytosis but this was chronic and there was no infiltrate, no evidence of PNA, abx were not indicated. She was found to have a stable anemia as well. Her evaluation was c/w CHF exacerbation 2/2 discontinuation of lasix, and COPD exacerbation w/o evidence of underlying infection. I was asked to facilitate admission. Currently pt reports that she is feeling much improved s/p lasix, nebs, and decadron. Related Data Home Medications Medication Instructions Recorded Confirmed amlodipine 10 mg tablet 10 mg PO QDAY 02/25/22 02/25/22 aspirin 325 mg tablet 325 mg PO QDAY 02/25/22 02/25/22 gabapentin 300 mg capsule 300 mg PO QID 02/25/22 02/25/22 insulin glargine 100 unit/mL (3 56 unit SUBCUT DAILY 02/25/22 02/25/22 mL) subcutaneous pen (Lantus Solostar U-100 Insulin) insulin lispro 100 unit/mL 20 - 24 unit SUBCUT TID 02/25/22 02/25/22 subcutaneous pen (Humalog KwikPen (U-100) Insulin) metoprolol succinate 100 mg 100 mg PO QDAY 02/25/22 02/25/22 tablet,extended release 24 hr (Toprol XL) omega-3 339 mg-dha and epa 314 1 cap PO DAILY 02/25/22 02/25/22 mg-fish and krill oil 500 mg capsule ([employer] 4-in-1) omeprazole 20 mg capsule,delayed 20 mg PO QDAY 02/25/22 02/25/22 release valsartan 80 mg tablet 80 mg PO QDAY 02/25/22 02/25/22 Previous Rx's Medication Instructions Recorded albuterol sulfate 90 mcg/actuation 2 puff INHALATION Q6H PRN #8.5 g 03/01/22 aerosol inhaler Allergies Allergy/AdvReac Type Severity Reaction Status Date / Time codeine Allergy Intermediate Swelling Verified 02/25/22 14:26 pantoprazole [From Protonix] Allergy Intermediate Swelling Verified 04/12/22 05:33 of Lip/Tongue/Throat Review of Systems ROS ROS Narrative: Narrative: PFSH Narrative Patient History Narrative: Narrative: Medical/Surgical/Family History All Active Problems (Updated 04/12/22 @ 06:42 by Ritesh Naqvi DO) Acute dyspnea (Acute) Hypoxia (Acute) Chronic anemia (Acute) CHF exacerbation (Acute) Wheezing (Acute) Lactic acidosis (Acute) MARIN (acute kidney injury) (Acute) CAD (coronary artery disease) (Acute) DM2 (diabetes mellitus, type 2) (Acute) Foot pain, right (Acute) Fall (Acute) Closed head injury (Acute) LLL pneumonia (Acute) Sepsis (Acute) COVID-19 (Acute) Social History Smoking Status: Never smoker Exam Narrative Narrative: Narrative: General Limitations: no limitations General appearance: Present alert and in no apparent distress Chest Chest: Present normal inspection and symmetric chest wall rise Respiratory Respiratory: Present rales/crackles (B/L) and wheezes (mild bibasilar); Absent respiratory distress, stridor, accessory muscle use, prolonged expiratory phase or decreased breath sounds Cardiovascular Cardiovascular: Present regular rate, normal rhythm, +S1, +S2 and other (2+ B/ LLE pitting edema); Absent systolic murmur or diastolic murmur Neurological Neurological: Present alert and oriented X3 Psychiatric Psychiatric: Present normal affect Course Reevaluation(s) Reevaluation #1: Pts CXR was read as PNA, however when I updated the radiologist on her clinical presentation he agreed that CHF was much more likely. I have d/w Dr Schmitz the hospitalist, who accepts pt for admission. He did request that we give a dose of insulin which I have ordered. Time: 08:03 Vital Signs Vital signs: Vital Signs Temperature 99.2 F H 04/12/22 05:29 Pulse Rate 101 H 04/12/22 05:29 Respiratory Rate 30 H 04/12/22 05:29 Blood Pressure 150/67 04/12/22 05:29 Pulse Oximetry (%) 70 L 04/12/22 05:29 Temperature 99.2 F H 04/12/22 05:29 Pulse Rate 94 H 04/12/22 07:41 Respiratory Rate 21 04/12/22 07:41 Blood Pressure 115/56 04/12/22 07:30 Pulse Oximetry (%) 96 04/12/22 07:41 MDM MDM Narrative Medical decision making narrative: Narrative: Lab Data Lab results reviewed: Yes I reviewed the patient's lab results. Result diagrams: 04/12/22 05:49 Labs: Lab Results 04/12/22 04/12/22 04/12/22 Range/Units 05:49 05:49 05:52 WBC 15.4 H (4.5-11.0) K/mcL RBC 3.47 L (3.59-5.38) M/mcL Hgb 9.3 L (11.2-15.7) g/dL Hct 29.9 L (34.1-44.9) % POC Hct 28.0 L (36-48) MCV 86.2 (80.0-100.0) fL MCH 26.8 (26.0-34.0) pg MCHC 31.1 (31.0-36.0) g/dL RDW 15.9 H (11.5-14.5) % Plt Count 311 (140-440) K/mcL MPV 10.2 (7.4-10.4) fL Immature Gran % (Auto) 0.7 H (0.0-0.5) % Neut % (Auto) 76.8 (38.0-78.0) % Lymph % (Auto) 10.2 L (15.5-49.0) % [place] % (Auto) 11.5 (1.0-12.0) % Eos % (Auto) 0.5 (0.0-7.0) % Baso % (Auto) 0.3 (0.0-2.0) % Lymph # (Auto) 1.57 (1.50-4.80) K/mcL [place] # (Auto) 1.76 H (0.10-0.90) K/mcL Eos # (Auto) 0.07 (0.00-0.70) K/mcL Baso # (Auto) 0.04 (0.00-0.30) K/mcL Immature Gran # 0.10 H (0.00-0.05) K/mcl Absolute Neutrophils 11.93 H (1.80-8.00) K/mcL POC VBG pH (7.32-7.42) POC VBG pCO2 at Temp (41-51) POC VBG pO2 (25-40) POC VBG HCO3 (24-28) POC VBG Total CO2 (25-29) POC Venous O2 Sat (40-70) POC VBG Base Excess (-2-2) POC Sodium 139 (133-145) POC Potassium 4.5 (3.3-5.1) POC Chloride 107 (96-108) POC Total CO2 21.0 L (22-30) POC BUN 30 H (6-20) POC Creatinine 1.4 H (0.6-1.2) POC Glucose 308 H (70-105) POC Venous Lactate (0.5-2) POC WB Ioniz Calcium 1.21 (1.16-1.32) Magnesium 1.6 (1.6-2.5) mg/dL NT-Pro-B Natriuret Pep 4482.0 H (<450.0) pg/mL Beta-Hydroxybutyrate (<0.27) mmol/L 04/12/22 04/12/22 Range/Units 05:52 06:27 WBC (4.5-11.0) K/mcL RBC (3.59-5.38) M/mcL Hgb (11.2-15.7) g/dL Hct (34.1-44.9) % POC Hct (36-48) MCV (80.0-100.0) fL MCH (26.0-34.0) pg MCHC (31.0-36.0) g/dL RDW (11.5-14.5) % Plt Count (140-440) K/mcL MPV (7.4-10.4) fL Immature Gran % (Auto) (0.0-0.5) % Neut % (Auto) (38.0-78.0) % Lymph % (Auto) (15.5-49.0) % [place] % (Auto) (1.0-12.0) % Eos % (Auto) (0.0-7.0) % Baso % (Auto) (0.0-2.0) % Lymph # (Auto) (1.50-4.80) K/mcL [place] # (Auto) (0.10-0.90) K/mcL Eos # (Auto) (0.00-0.70) K/mcL Baso # (Auto) (0.00-0.30) K/mcL Immature Gran # (0.00-0.05) K/mcl Absolute Neutrophils (1.80-8.00) K/mcL POC VBG pH 7.37 (7.32-7.42) POC VBG pCO2 at Temp 36.6 L (41-51) POC VBG pO2 30 (25-40) POC VBG HCO3 21.1 L (24-28) POC VBG Total CO2 22.0 L (25-29) POC Venous O2 Sat 55.0 (40-70) POC VBG Base Excess -4.0 L (-2-2) POC Sodium (133-145) POC Potassium (3.3-5.1) POC Chloride (96-108) POC Total CO2 (22-30) POC BUN (6-20) POC Creatinine (0.6-1.2) POC Glucose (70-105) POC Venous Lactate 1.3 (0.5-2) POC WB Ioniz Calcium (1.16-1.32) Magnesium (1.6-2.5) mg/dL NT-Pro-B Natriuret Pep (<450.0) pg/mL Beta-Hydroxybutyrate 1.22 H (<0.27) mmol/L ED POC Tests ED POC Tests: KIMBERLY - Influenza A Negative KIMBERLY - Influenza B Negative Discharge Plan Patient/Caregiver Discharge Instructions Pt seen by RETAIL VISUAL MERCHANDISER/PA only: No Clinical Impression: Acute dyspnea, Hypoxia, Chronic anemia, CHF exacerbation, Wheezing Patient Disposition: Xfer As Inpt ([facility]) Condition: Fair Follow up with: Bar Catalan [Primary Care Provider] - Prescriptions: No Action aspirin 325 mg Tablet 325 mg PO QDAY 0RF metoprolol succinate [Toprol XL] 100 mg Tablet Extended Release 24 Hr 100 mg PO QDAY 0RF valsartan 80 mg Tablet 80 mg PO QDAY 0RF amlodipine 10 mg Tablet 10 mg PO QDAY 0RF gabapentin 300 mg Capsule 300 mg PO QID 0RF omeprazole 20 mg Capsule,Delayed Release(Dr/Ec) 20 mg PO QDAY 0RF insulin lispro [Humalog KwikPen Insulin] 100 unit/mL Insulin Pen 20 - 24 unit SUBCUT TID 0RF Lantus Solostar U-100 Insulin 100 unit/mL (3 mL) Insulin Pen 56 unit SUBCUT DAILY 0RF omega [id number] oil-krill [[employer] [employer] 4-in-1] 339 mg-314 mg- 500 mg Capsule 1 cap PO DAILY 0RF albuterol sulfate 90 mcg/actuation HFA aerosol inhaler 2 puff inhalation Q6H PRN (Reason: shortness of breath or wheezing) Qty: 8.5 0RF
[2022-04-12] MEDS ORDERED: INSULIN REGULAR, HUMAN 1 UNIT/0.01 ML UNIT IV ONE (08:02)
--- NOTE | 2022-04-12 08:50 | Internal Med History&Physical ---
HPI History of Present Illness Patient information: Note initiated : 04/12/22 at 8:38 am Service Date, if different from initiated Date: [] Patient: Jim Butler a 81 y/o F admitted on for SOB . Chief Complaint: [shortness of breath] Chief complaint: shortness of breath History of present illness: Ms. Butler is a 81 year old F history of recent COVID in February 2022, CHF, CAD status post CABG x4, type 2 diabetes mellitus, presenting with gradual onset, gradually worsening shortness of breath for 5 days. Patient was supposed to be on chlorthalidone which was stopped it during her last hospitalization in February 2022. Over the past 5 days, she is coming of gradually worsening shortness of breath accompanied by nonproductive cough and respiratory wheezings. She is also complaining of chest pain whenever she coughs. She is also coming of subjective fever and shaking chills. She is also complained of general body weakness. She also noticed bilateral leg swellings. She is sleep on a recliner. She is complaining of exertional dyspnea after 50 feet's. She denies any unintentional weight gain. Vital signs at ED presentation significant for tachypnea with rate of breathing in the mid 20s as well as oxygen desaturating to the 70s on room air. She does not use home oxygen. Labs significant for leukocytosis with WBC 15.4 which appears to be her baseline. Serum lactic acid 1.4. Blood glucose in the 300s range. Anion gap 11. COVID is pending. Chest x-ray showing bilateral pulmonary edema. Patient was placed on supplemental oxygen 4 L/min as well as 5 units of regular insulin and admission request was called. Constitutional Constitutional: Present chills, fever(s) and weakness; Absent excessive sweating or fatigue EENT Eyes: Absent blurry vision, change in vision, loss of vision or other visual disturbances Ears: Absent decreased hearing or tinnitus Nose, mouth and throat: Absent abnormal hearing, dry mouth, headache(s), nasal congestion or sore throat Cardiovascular Cardiovascular: Present chest pain; Absent chest pain at rest, edema, irregular heart rhythm or palpatations Respiratory Respiratory: Present cough, dyspnea, dyspnea on exertion and wheezing Gastrointestinal Gastrointestinal: Absent abdominal pain, constipation, diarrhea, nausea or vomiting Musculoskeletal Musculoskeletal: Absent back pain, deformity, limited range of motion, muscle cramps, muscle weakness or numbness Integumentary Integumentary: Absent lesions, rash or wounds Neurological Neurological: Absent focal weakness, headache(s) or numbness Psychiatric Psychiatric: Absent anxiety, depression or hallucinations PFSH PFSH All Active Problems (Updated 04/12/22 @ 08:45 by Maurice Schmitz MD) Chronic kidney disease (CKD) stage G3a/A1, moderately decreased glomerular filtration rate (GFR) between 45-59 mL/min/1.73 square meter and albuminuria creatinine ratio less than 30 mg/g (Acute) COPD exacerbation (Acute) Anemia, normocytic normochromic (Acute) Acute dyspnea (Acute) Hypoxia (Acute) Chronic anemia (Acute) CHF exacerbation (Acute) Wheezing (Acute) Lactic acidosis (Acute) MARIN (acute kidney injury) (Acute) CAD (coronary artery disease) (Acute) DM2 (diabetes mellitus, type 2) (Acute) Foot pain, right (Acute) Fall (Acute) Closed head injury (Acute) LLL pneumonia (Acute) Sepsis (Acute) COVID-19 (Acute) MEDS/ALLERGIES Home Medications and Allergies Home Medications Medication Instructions Recorded Confirmed Type amlodipine 10 mg tablet 10 mg PO QDAY 02/25/22 02/25/22 History aspirin 325 mg tablet 325 mg PO QDAY 02/25/22 02/25/22 History gabapentin 300 mg capsule 300 mg PO QID 02/25/22 02/25/22 History insulin glargine 100 unit/mL (3 56 unit SUBCUT DAILY 02/25/22 02/25/22 History mL) subcutaneous pen (Lantus Solostar U-100 Insulin) insulin lispro 100 unit/mL 20 - 24 unit SUBCUT TID 02/25/22 02/25/22 History subcutaneous pen (Humalog KwikPen (U-100) Insulin) metoprolol succinate 100 mg 100 mg PO QDAY 02/25/22 02/25/22 History tablet,extended release 24 hr (Toprol XL) omega-3 339 mg-dha and epa 314 1 cap PO DAILY 02/25/22 02/25/22 History mg-fish and krill oil 500 mg capsule (MegaRed Advanced 4-in-1) omeprazole 20 mg capsule,delayed 20 mg PO QDAY 02/25/22 02/25/22 History release valsartan 80 mg tablet 80 mg PO QDAY 02/25/22 02/25/22 History albuterol sulfate 90 mcg/actuation 2 puff INHALATION Q6H PRN #8.5 g 03/01/22 Rx aerosol inhaler Allergies Allergy/AdvReac Type Severity Reaction Status Date / Time codeine Allergy Intermediate Swelling Verified 02/25/22 14:26 pantoprazole [From Protonix] Allergy Intermediate Swelling Verified 04/12/22 05:33 of Lip/Tongue/Throat EXAM Constitutional Vitals: Temp Pulse Resp BP Pulse Ox 37.3 C H 89 27 H 115/51 96 04/12/22 05:29 04/12/22 08:27 04/12/22 08:27 04/12/22 08:15 04/12/22 08:27 General appearance: cooperative and no acute distress Head Head exam: Present atraumatic and normocephalic Eye Eye exam: Present EOMI and PERRL ENT ENT exam: Present mucous membranes moist, normal exam and normal external ear exam Additional comments: Nasal cannula Neck Neck exam: Present normal inspection; Absent lymphadenopathy, tenderness or thyromegaly Respiratory Respiratory exam: Present decreased breath sounds, rhonchi and wheezes; Absent accessory muscle use or respiratory distress Cardiovascular Cardiovascular exam: Present normal rate and rhythm; Absent JVD Additional comments: Sternal chest wall surgical scar, well healed GI/Abdominal GI/Abdominal exam: Present normal bowel sounds and soft; Absent organomegaly or tenderness Extremities Exam Extremities exam: Present full ROM, normal capillary refill, normal inspection and pedal edema; Absent tenderness Neurological Exam Neurological exam: Present alert, CN II-XII intact and oriented X3; Absent motor sensory deficit Psychiatric Psychiatric exam: Present normal affect and normal mood; Absent anxious or depressed Skin Skin exam: Present dry and intact DATA Data Completed and Pending Labs: Labs from last 24 hours 04/12/22 04/12/22 04/12/22 06:27 05:52 05:52 WBC RBC Hgb Hct POC Hct 28.0 L MCV MCH MCHC RDW Plt Count MPV Immature Gran % (Auto) Neut % (Auto) Lymph % (Auto) [place] % (Auto) Eos % (Auto) Baso % (Auto) Lymph # (Auto) [place] # (Auto) Eos # (Auto) Baso # (Auto) Immature Gran # Absolute Neutrophils POC VBG pH 7.37 POC VBG pCO2 at Temp 36.6 L POC VBG pO2 30 POC VBG HCO3 21.1 L POC VBG Total CO2 22.0 L POC Venous O2 Sat 55.0 POC VBG Base Excess -4.0 L POC Sodium 139 POC Potassium 4.5 POC Chloride 107 POC Total CO2 21.0 L POC BUN 30 H POC Creatinine 1.4 H POC Glucose 308 H POC Venous Lactate 1.3 POC WB Ioniz Calcium 1.21 Magnesium NT-Pro-B Natriuret Pep Beta-Hydroxybutyrate 1.22 H 04/12/22 04/12/22 05:49 05:49 WBC 15.4 H RBC 3.47 L Hgb 9.3 L Hct 29.9 L POC Hct MCV 86.2 MCH 26.8 MCHC 31.1 RDW 15.9 H Plt Count 311 MPV 10.2 Immature Gran % (Auto) 0.7 H Neut % (Auto) 76.8 Lymph % (Auto) 10.2 L [place] % (Auto) 11.5 Eos % (Auto) 0.5 Baso % (Auto) 0.3 Lymph # (Auto) 1.57 [place] # (Auto) 1.76 H Eos # (Auto) 0.07 Baso # (Auto) 0.04 Immature Gran # 0.10 H Absolute Neutrophils 11.93 H POC VBG pH POC VBG pCO2 at Temp POC VBG pO2 POC VBG HCO3 POC VBG Total CO2 POC Venous O2 Sat POC VBG Base Excess POC Sodium POC Potassium POC Chloride POC Total CO2 POC BUN POC Creatinine POC Glucose POC Venous Lactate POC WB Ioniz Calcium Magnesium 1.6 NT-Pro-B Natriuret Pep 4482.0 H Beta-Hydroxybutyrate A/P Assessment and plan (1) CAD (coronary artery disease): Status: Acute (2) DM2 (diabetes mellitus, type 2): Status: Acute (3) Anemia, normocytic normochromic: Status: Acute (4) CHF exacerbation: Status: Acute (5) COPD exacerbation: Status: Acute (6) Chronic kidney disease (CKD) stage G3a/A1, moderately decreased glomerular filtration rate (GFR) between 45-59 mL/min/1.73 square meter and albuminuria creatinine ratio less than 30 mg/g: Status: Acute Narrative A/P Narrative: Assessment and Plans: 1. CHF exacerbation: Inpatient med surg telemetry Strict intake and output measurement Daily weigh 2L/day fluid restriction Lasix 40mg IV BID Supplemental oxygen therapy titrate to achieve spo2>=88% given COPDer 2. COPD exacerbation: Supplemental oxygen therapy titrate to achieve spo2>=88% given COPDer DuoNEB NEB Prednisone Zithromax 3. T2DM: HgA1c Lantus HS Lispro TID AC Gabapentin Accu Chek AC HS Hypoglycemia protocol Diabetic diet 4. Chronic kidney disease III: Avoid nephrotoxic agents Saline lock CMP daily to trend kidney functions 5. h/o CAD: [place] 3 oil Metoprolol ER Aspirin Amlodipine Valsartan 6. Anemia, normochromic normocytic: cbc w/ auto diff daily to trend H/H GI ppx: continue oral PPI from home regimen DVT ppx: Heparin Code status: Full Prognosis: guarded Disposition: Inpatient med surg telemetry Time Spent With Patient Time: Total time spent is greater than 50% in coordination of care (as documented) at patient's floor/unit and/or counseling patient: Total time spent with greater than 50% in coordination of care (as documented) at patient's floor/unit and/or counseling patient:: 50 - 70 minutes
[2022-04-12] MEDS ORDERED: HEPARIN 5,000 UNIT/ML VIAL SQ SCH (09:00)
[2022-04-12] MEDS ORDERED: morphine 4 MG/ML VIAL IV PRN (09:25)
[2022-04-12] MEDS ORDERED: traZODone HCL 50 MG TABLET PO PRN (09:25)
[2022-04-12] MEDS ORDERED: ONDANSETRON 4 MG/2 ML VIAL IV PRN (09:25)
[2022-04-12] MEDS ORDERED: guaiFENesin/DEXTROMETHORPHAN ORAL SOL PO PRN (09:25)
[2022-04-12] MEDS ORDERED: NITROGLYCERIN 0.4 MG TAB.SUBL SL PRN (09:25)
[2022-04-12] MEDS ORDERED: ALBUTEROL SULFATE 200 PUFF INHALER INH PRN (09:25)
[2022-04-12 10:21] LABS: Hemoglobin A1C 7.4 % Hgb (4.0-6.0)
[2022-04-12] MEDS: AZITHROMYCIN 250 MG TABLET PO SCH (11:14)
[2022-04-12] MEDS: OMEPRAZOLE 20 MG CAPSULE PO SCH (11:15)
[2022-04-12] MEDS: DOCUSATE SODIUM 100 MG CAPSULE PO SCH ×2 (11:15→23:07)
[2022-04-12] MEDS: METOPROLOL SUCCINATE 50 MG TAB.XL.24H PO SCH (11:15)
[2022-04-12] MEDS: amLODIPine 10 MG TABLET PO SCH (11:15)
[2022-04-12] MEDS: GABAPENTIN 300 MG CAPSULE PO SCH ×4 (11:16→20:52)
[2022-04-12] MEDS: IPRATROPIUM/ALBUTEROL 3 ML AMPUL.NEB NEB SCH ×4 (11:24→23:55)
[2022-04-12] MEDS ORDERED: INSULIN LISPRO 1 UNIT/0.01 ML UNIT SQ SCH (11:30)
[2022-04-12] MEDS ORDERED: DEXTROSE 50% 50 ML VIAL IV PRN (11:56)
[2022-04-12] MEDS ORDERED: DEXTROSE 31 GM ORAL.SUSP PO PRN (11:56)
[2022-04-12] MEDS: INSULIN LISPRO 1 UNIT/0.01 ML UNIT SQ SCH ×6 (12:28→21:05)
[2022-04-12] MEDS: 0.9 % SODIUM CHLORIDE 10 ML SYRINGE IV SCH ×3 (14:09→23:04)
[2022-04-12] MEDS: FUROSEMIDE 40 MG/4 ML VIAL IV SCH (16:38)
[2022-04-12] MEDS ORDERED: HYDROcodone/APAP 5/325MG TABLET PO PRN (19:00)
[2022-04-12] MEDS ORDERED: ELIQUIS 2.5 MG PO SCH ×2 (20:00→21:00)
[2022-04-12] MEDS: HEPARIN 5,000 UNIT/ML VIAL SQ SCH (20:52)
[2022-04-12] MEDS: INSULIN GLARGINE, HUMAN 1 UNIT/0.01 ML SQ SCH (21:04)
[2022-04-12] MEDS: SENNOSIDES 1 TABLET PO SCH (23:07)
[2022-04-13] MEDS: INSULIN LISPRO 1 UNIT/0.01 ML UNIT SQ SCH ×8 (00:39→21:26)
[2022-04-13] MEDS: 0.9 % SODIUM CHLORIDE 10 ML SYRINGE IV SCH ×4 (03:16→22:03)
[2022-04-13] MEDS: IPRATROPIUM/ALBUTEROL 3 ML AMPUL.NEB NEB SCH ×4 (03:16→18:53)
[2022-04-13] MEDS: ACETAMINOPHEN 325 MG TABLET PO PRN ×3 (03:59→21:42)
[2022-04-13 06:06] LABS: Basophils # (Auto) 0.02 K/mcL (0.00-0.30); Basophils % (Auto) 0.1 % (0.0-2.0); Eosinophils # (Auto) 0 K/mcL (0.00-0.70); Eosinophils % (Auto) 0 % (0.0-7.0); Hematocrit 24.6 % (34.1-44.9); Hemoglobin 7.6 g/dL (11.2-15.7); Lymphocytes # (Auto) 0.94 K/mcL (1.50-4.80); Lymphocytes % (Auto) 5.2 % (15.5-49.0); Mean Cell Volume 86.3 fL (80.0-100.0); Mean Corpuscular HGB Conc 30.9 g/dL (31.0-36.0); Monocytes # (Auto) 1.37 K/mcL (0.10-0.90); Monocytes % (Auto) 7.5 % (1.0-12.0); Neutrophils % (Auto) 86.6 % (38.0-78.0); Platelet Count 270 K/mcL (140-440); RBC 2.85 M/mcL (3.59-5.38); Red Cell Distribution Width 15.7 % (11.5-14.5); WBC 18.2 K/mcL (4.5-11.0)
[2022-04-13 06:41] LABS: ALT/SGPT 15 U/L (<40); AST/SGOT 19 U/L (<32); Albumin 3.1 gm/dL (3.2-5.2); Alkaline Phosphatase 88 U/L (39-117); Bilirubin,Total 0.3 mg/dL (0.1-1.0); Blood Urea Nitrogen 36 mg/dL (8-23); Calcium 8.9 mg/dL (8.6-10.4); Carbon Dioxide 19 mmol/L (22-30); Chloride 102 mmol/L (96-108); Glomerular Filtration Rate 29; Glucose 201 mg/dL (70-105); Phosphorous 4.1 mg/dL (2.5-4.5)
[2022-04-13] MEDS: AZITHROMYCIN 250 MG TABLET PO SCH (08:30)
[2022-04-13] MEDS: FUROSEMIDE 40 MG/4 ML VIAL IV SCH ×2 (08:30→16:06)
[2022-04-13] MEDS: predniSONE 20 MG TABLET PO SCH (08:30)
[2022-04-13] MEDS: ASPIRIN 325 MG ENTERIC COATED TABLET PO SCH (08:30)
[2022-04-13] MEDS: HEPARIN 5,000 UNIT/ML VIAL SQ SCH ×2 (08:30→21:27)
[2022-04-13] MEDS: GABAPENTIN 300 MG CAPSULE PO SCH ×4 (08:31→21:26)
[2022-04-13] MEDS: DOCUSATE SODIUM 100 MG CAPSULE PO SCH ×2 (08:31→21:26)
[2022-04-13] MEDS: METOPROLOL SUCCINATE 50 MG TAB.XL.24H PO SCH (08:31)
[2022-04-13] MEDS: OMEPRAZOLE 20 MG CAPSULE PO SCH (08:31)
[2022-04-13] MEDS: amLODIPine 10 MG TABLET PO SCH (08:31)
[2022-04-13] MEDS: LOSARTAN 50 MG TABLET PO SCH (08:31)
[2022-04-13] MEDS: [UNRECOGNIZED DRUG - OTHER] PO SCH (08:50)
[2022-04-13] MEDS ORDERED: ALBUTEROL SULFATE 2.5 MG/3 ML NEBULIZER NEB PRN (10:01)
--- NOTE | 2022-04-13 11:32 | Internal Med Progress Note ---
SUBJECTIVE Subjective Patient information: Note initiated : 04/13/22 at 11:26 am Service Date, if different from initiated Date: [] Patient: Jim Butler a 81 y/o F admitted on 04/12/22 for SOB . Chief Complaint: [] Interval history: History of present illness: Ms. Butler is a 81 year old F history of recent COVID in February 2022, CHF, CAD status post CABG x4, type 2 diabetes mellitus, presenting with gradual onset, gradually worsening shortness of breath for 5 days. Patient was supposed to be on chlorthalidone which was stopped it during her last hospitalization in February 2022. Over the past 5 days, she is coming of gradually worsening shortness of breath accompanied by nonproductive cough and respiratory wheezings. She is also complaining of chest pain whenever she coughs. She is also coming of subjective fever and shaking chills. She is also complained of general body weakness. She also noticed bilateral leg swellings. She is sleep on a recliner. She is complaining of exertional dyspnea after 50 feet's. She denies any unintentional weight gain. Vital signs at ED presentation significant for tachypnea with rate of breathing in the mid 20s as well as oxygen desaturating to the 70s on room air. She does not use home oxygen. Labs significant for leukocytosis with WBC 15.4 which appears to be her baseline. Serum lactic acid 1.4. Blood glucose in the 300s range. Anion gap 11. COVID is pending. Chest x-ray showing bilateral pulmonary edema. Patient was placed on supplemental oxygen 4 L/min as well as 5 units of regular insulin and admission request was called. 04/13: There was no major overnight events. Patient is on between 2 to 6 L/min of supplemental oxygen's depending on activities. Fasting sugar 220 this morning. H&H 7.6 and 24.6, respectively which would present a drop relative to yesterday. Urine output: XXX overnight. Troponin 0.03-->0.07-->0.09. CoVID PCR negative. No reported him at emesis or bloody stool. Denies chest pain. Continue IV Lasix and fluid restrictions for CHF exacerbations. Continue azithromycin and prednisone as well as DuoNeb for COPD exacerbations. We will check troponin this morning. We will also check stool occult blood to rule out GI bleeding. Pending physical therapy and Occupational Therapy evaluations and treatments. Constitutional Vitals: Vital Signs Temp Pulse Resp BP Pulse Ox 36.3 C 73 21 102/85 93 04/13/22 08:07 04/13/22 10:09 04/13/22 10:09 04/13/22 10:09 04/13/22 10:09 Period Temp Pulse Resp BP Sys/Calderon Pulse Ox Last 24 Hr 36.2 C-36.9 C 72-90 14-24 102-160/54-124 90-98 Intake and Output 04/12/22 04/13/22 04/13/22 21:59 05:59 13:59 Intake Total 720 240 Output Total 1 301 300 Balance 719 -301 -60 Weight 81.335 kg Intake & Output: Intake & Output 04/12/22 04/13/22 04/13/22 21:59 05:59 13:59 Intake Total 720 240 Output Total 1 301 300 Balance 719 -301 -60 Weight 81.335 kg Intake: Oral 720 240 Output: Void Amount 300 300 # of times incontinent of urine 1 1 Other: Meal Dinner Applesauce Breakfast Percent of Meal Consumed 100% 100% 100% Feeding Ability Assist with Tray Set Up Independent Independent Urine Color Bright Yellow Straw Stool Size Small Small Stool Color Brown Brown Green Stool Consistency Formed Soft Head Head exam: Present atraumatic and normal inspection Eye Eye exam: Present normal appearance ENT ENT exam: Present mucous membranes moist, normal exam and normal external ear exam Neck Neck exam: Present normal inspection Respiratory Respiratory exam: Present normal respiratory exam Cardiovascular Cardiovascular exam: Present normal rate and rhythm GI/Abdominal GI/Abdominal exam: Present normal bowel sounds Back Exam Back exam: Present normal inspection Neurological Exam Neurological exam: Present alert and oriented X3 Skin Skin exam: Present intact and warm OBJ DATA Labs CBC & Chem 7: 04/13/22 05:18 04/13/22 05:18 Labs: Abnormal Lab Results 04/13/22 04/13/22 04/13/22 05:18 05:18 00:26 WBC 18.2 H RBC 2.85 L Hgb 7.6 L Hct 24.6 L POC Hct MCHC 30.9 L RDW 15.7 H Immature Gran % (Auto) 0.6 H Neut % (Auto) 86.6 H Lymph % (Auto) 5.2 L Lymph # (Auto) 0.94 L Kings # (Auto) 1.37 H Immature Gran # 0.11 H Absolute Neutrophils 15.91 H POC pH POC pO2 POC HCO3 POC ABG Base Excess POC VBG pCO2 at Temp POC VBG pO2 POC VBG HCO3 POC VBG Total CO2 POC Venous O2 Sat POC VBG Base Excess Hgb O2 Saturation Carbon Dioxide 19 L POC Total CO2 POC BUN BUN 36 H Creatinine 1.6 H POC Creatinine Glucose 201 H POC Glucose Hemoglobin A1c POC Arterial Lactate POC Venous Lactate Troponin T 0.09 H* NT-Pro-B Natriuret Pep Albumin 3.1 L Beta-Hydroxybutyrate 04/12/22 04/12/22 04/12/22 22:04 18:57 17:57 WBC RBC Hgb Hct POC Hct MCHC RDW Immature Gran % (Auto) Neut % (Auto) Lymph % (Auto) Lymph # (Auto) [place] # (Auto) Immature Gran # Absolute Neutrophils POC pH 7.30 L POC pO2 38 L* POC HCO3 18.7 L POC ABG Base Excess -8.0 L POC VBG pCO2 at Temp 39.3 L POC VBG pO2 44 H POC VBG HCO3 20.9 L POC VBG Total CO2 22.0 L POC Venous O2 Sat 76.0 H POC VBG Base Excess -5.0 L Hgb O2 Saturation 67.0 L Carbon Dioxide POC Total CO2 20.0 L POC BUN BUN Creatinine POC Creatinine Glucose POC Glucose Hemoglobin A1c POC Arterial Lactate 3.9 H POC Venous Lactate 2.3 H Troponin T 0.07 H* NT-Pro-B Natriuret Pep Albumin Beta-Hydroxybutyrate 04/12/22 04/12/22 04/12/22 12:08 06:27 05:52 WBC RBC Hgb Hct POC Hct MCHC RDW Immature Gran % (Auto) Neut % (Auto) Lymph % (Auto) Lymph # (Auto) [place] # (Auto) Immature Gran # Absolute Neutrophils POC pH POC pO2 POC HCO3 POC ABG Base Excess POC VBG pCO2 at Temp 36.6 L POC VBG pO2 POC VBG HCO3 21.1 L POC VBG Total CO2 22.0 L POC Venous O2 Sat POC VBG Base Excess -4.0 L Hgb O2 Saturation Carbon Dioxide POC Total CO2 POC BUN BUN Creatinine POC Creatinine Glucose POC Glucose Hemoglobin A1c POC Arterial Lactate POC Venous Lactate Troponin T 0.03 H NT-Pro-B Natriuret Pep Albumin Beta-Hydroxybutyrate 1.22 H 04/12/22 04/12/22 04/12/22 05:52 05:49 05:49 WBC RBC Hgb Hct POC Hct 28.0 L MCHC RDW Immature Gran % (Auto) Neut % (Auto) Lymph % (Auto) Lymph # (Auto) [place] # (Auto) Immature Gran # Absolute Neutrophils POC pH POC pO2 POC HCO3 POC ABG Base Excess POC VBG pCO2 at Temp POC VBG pO2 POC VBG HCO3 POC VBG Total CO2 POC Venous O2 Sat POC VBG Base Excess Hgb O2 Saturation Carbon Dioxide POC Total CO2 21.0 L POC BUN 30 H BUN Creatinine POC Creatinine 1.4 H Glucose POC Glucose 308 H Hemoglobin A1c 7.4 H POC Arterial Lactate POC Venous Lactate Troponin T NT-Pro-B Natriuret Pep 4482.0 H Albumin Beta-Hydroxybutyrate 04/12/22 05:49 WBC 15.4 H RBC 3.47 L Hgb 9.3 L Hct 29.9 L POC Hct MCHC RDW 15.9 H Immature Gran % (Auto) 0.7 H Neut % (Auto) Lymph % (Auto) 10.2 L Lymph # (Auto) [place] # (Auto) 1.76 H Immature Gran # 0.10 H Absolute Neutrophils 11.93 H POC pH POC pO2 POC HCO3 POC ABG Base Excess POC VBG pCO2 at Temp POC VBG pO2 POC VBG HCO3 POC VBG Total CO2 POC Venous O2 Sat POC VBG Base Excess Hgb O2 Saturation Carbon Dioxide POC Total CO2 POC BUN BUN Creatinine POC Creatinine Glucose POC Glucose Hemoglobin A1c POC Arterial Lactate POC Venous Lactate Troponin T NT-Pro-B Natriuret Pep Albumin Beta-Hydroxybutyrate Meds: Medications Acetaminophen (Acetaminophen 325 Mg Tablet) 650 mg PO Q6HP PRN; Protocol PRN Reason: Per Pain Protocol/Fever > 101 Last Admin: 04/13/22 10:37 Dose: 650 mg Documented by: Hydrocodone Bitart/Acetaminophen (Hydrocodone/Apap 5/325mg Tablet) 1 tab PO DAILYP PRN PRN Reason: Pain Albuterol Sulfate (Albuterol Sulfate 200 Puff Inhaler) 2 puff INH Q6H PRN PRN Reason: shortness of breath or wheezing Albuterol Sulfate (Albuterol Sulfate 2.5 Mg/3 Ml Nebulizer) 2.5 mg NEB Q2HP PRN PRN Reason: Shortness Of Breath Albuterol/Ipratropium (Ipratropium/Albuterol 3 Ml Ampul.Neb) 3 ml NEB Q6HRT [facility] Amlodipine Besylate (Amlodipine 10 Mg Tablet) 10 mg PO QDAY [facility] Last Admin: 04/13/22 08:31 Dose: 10 mg Documented by: Aspirin (Aspirin 325 Mg Enteric Coated Tablet) 325 mg PO QDAY [facility] Last Admin: 04/13/22 08:30 Dose: 325 mg Documented by: Azithromycin (Azithromycin 250 Mg Tablet) 250 mg PO DAILY [facility]; Protocol Stop: 04/16/22 09:01 Last Admin: 04/13/22 08:30 Dose: 250 mg Documented by: Dextrose (Dextrose 50% 50 Ml Vial) 0 ml IV UD PRN PRN Reason: Per Sliding Scale Diagnostic Test (Pha) (Accu-Chek 1 Each Strip) 1 each FS [facility] Last Admin: 04/13/22 07:54 Dose: 1 each Documented by: Docusate Sodium (Docusate Sodium 100 Mg Capsule) 100 mg PO BID [facility] Last Admin: 04/13/22 08:31 Dose: 100 mg Documented by: Furosemide (Furosemide 40 Mg/4 Ml Vial) 40 mg IV BIDD [facility] Last Admin: 04/13/22 08:30 Dose: 40 mg Documented by: Gabapentin (Gabapentin 300 Mg Capsule) 300 mg PO QID [facility] Last Admin: 04/13/22 08:31 Dose: 300 mg Documented by: Glucose (Dextrose 31 Gm Oral.Susp) 15 gm PO PRN PRN PRN Reason: Hypoglycemia Guaifenesin (Guaifenesin/Dextromethorphan Oral María) 10 ml PO Q4HP PRN PRN Reason: Cough Heparin Sodium (Porcine) (Heparin 5,000 Unit/Ml Vial) 5,000 unit SQ Q12 [facility] Last Admin: 04/13/22 08:30 Dose: 5,000 unit Documented by: Insulin Glargine (Insulin Glargine, Human 1 Unit/0.01 Ml) 56 unit SQ [facility] Last Admin: 04/12/22 21:04 Dose: 56 units Documented by: Insulin Human Lispro (Insulin Lispro 1 Unit/0.01 Ml Unit) 0 unit SQ [facility]; Protocol Last Admin: 04/13/22 08:29 Dose: 9 units Documented by: Insulin Human Lispro (Insulin Lispro 1 Unit/0.01 Ml Unit) 20 unit SQ AC [facility] Last Admin: 04/13/22 08:30 Dose: 20 unit Documented by: Losartan Potassium (Losartan 50 Mg Tablet) 50 mg PO DAILY [facility] Last Admin: 04/13/22 08:31 Dose: 50 mg Documented by: Metoprolol Succinate (Metoprolol Succinate 50 Mg Tab.Xl.24h) 100 mg PO QDAY [facility] Last Admin: 04/13/22 08:31 Dose: 100 mg Documented by: Morphine Sulfate (Morphine 4 Mg/Ml Vial) 4 mg IV Q4HP PRN; Protocol PRN Reason: Per Pain Protocol Nitroglycerin (Nitroglycerin 0.4 Mg Tab.Subl) 0.4 mg SL Q5M PRN PRN Reason: Chest Pain Omeprazole (Omeprazole 20 Mg Capsule) 20 mg PO QDAY [facility] Last Admin: 04/13/22 08:31 Dose: 20 mg Documented by: Ondansetron HCl (Ondansetron 4 Mg/2 Ml Vial) 4 mg IV Q6HP PRN PRN Reason: Nausea And Vomiting [place] [id number] Oil-Krill [Megared Advanced 1 dose PO DAILY [facility] Last Admin: 04/13/22 08:50 Dose: Not Given Documented by: Prednisone (Prednisone 20 Mg Tablet) 40 mg PO [facility] Last Admin: 04/13/22 08:30 Dose: 40 mg Documented by: Senna (Sennosides 1 Tablet) 2 tab PO [facility] Last Admin: 04/12/22 23:07 Dose: 2 tab Documented by: Sodium Chloride (0.9 % Sodium Chloride 10 Ml Syringe) 10 ml IV Q8 [facility] Last Admin: 04/13/22 05:59 Dose: Not Given Documented by: Trazodone HCl (Trazodone Hcl 50 Mg Tablet) 25 mg PO HSP PRN PRN Reason: Insomnia A/P Assessment and plan (1) CAD (coronary artery disease): Status: Acute (2) DM2 (diabetes mellitus, type 2): Status: Acute (3) Anemia, normocytic normochromic: Status: Acute (4) CHF exacerbation: Status: Acute (5) COPD exacerbation: Status: Acute (6) Chronic kidney disease (CKD) stage G3a/A1, moderately decreased glomerular filtration rate (GFR) between 45-59 mL/min/1.73 square meter and albuminuria creatinine ratio less than 30 mg/g: Status: Acute Narrative A/P Narrative: Assessment and Plans: 1. CHF exacerbation: Inpatient med surg telemetry Strict intake and output measurement Daily weigh 2L/day fluid restriction Lasix 40mg IV BID Supplemental oxygen therapy titrate to achieve spo2>=88% given COPDer Physical therapy Occupational therapy 2. COPD exacerbation: Supplemental oxygen therapy titrate to achieve spo2>=88% given COPDer DuoNEB NEB Prednisone Zithromax 3. T2DM: HgA1c 7.4 Lantus HS Lispro TID AC SSI AC HS Gabapentin Accu Chek AC HS Hypoglycemia protocol Diabetic diet 4. Chronic kidney disease III: Avoid nephrotoxic agents Saline lock CMP daily to trend kidney functions 5. h/o CAD: [place] 3 oil Metoprolol ER Aspirin Amlodipine Valsartan 6. Anemia, normochromic normocytic: cbc w/ auto diff daily to trend H/H GI ppx: continue oral PPI from home regimen DVT ppx: Heparin Code status: Full Prognosis: guarded Disposition: Inpatient med surg telemetry; PT OT Time Spent With Patient Time: Total time spent is greater than 50% in coordination of care (as documented) at patient's floor/unit and/or counseling patient: Total time spent with greater than 50% in coordination of care (as documented) at patient's floor/unit and/or counseling patient:: 35 - 50 minutes QUALITY VTE Deep Vein Thrombosis/Pulmonary Embolism Present on Admission: No
--- NOTE | 2022-04-13 12:00 | Internal Med Progress Note ---
SUBJECTIVE Subjective Patient information: Note initiated : 04/13/22 at 11:57 am Service Date, if different from initiated Date: [] Patient: Jim Butler a 81 y/o F admitted on 04/12/22 for SOB . Chief Complaint: [] Interval history: History of present illness: Ms. Butler is a 81 year old F history of recent COVID in February 2022, CHF, CAD status post CABG x4, type 2 diabetes mellitus, presenting with gradual onset, gradually worsening shortness of breath for 5 days. Patient was supposed to be on chlorthalidone which was stopped it during her last hospitalization in February 2022. Over the past 5 days, she is coming of gradually worsening shortness of breath accompanied by nonproductive cough and respiratory wheezings. She is also complaining of chest pain whenever she coughs. She is also coming of subjective fever and shaking chills. She is also complained of general body weakness. She also noticed bilateral leg swellings. She is sleep on a recliner. She is complaining of exertional dyspnea after 50 feet's. She denies any unintentional weight gain. Vital signs at ED presentation significant for tachypnea with rate of breathing in the mid 20s as well as oxygen desaturating to the 70s on room air. She does not use home oxygen. Labs significant for leukocytosis with WBC 15.4 which appears to be her baseline. Serum lactic acid 1.4. Blood glucose in the 300s range. Anion gap 11. COVID is pending. Chest x-ray showing bilateral pulmonary edema. Patient was placed on supplemental oxygen 4 L/min as well as 5 units of regular insulin and admission request was called. 04/13: There was no major overnight events. Patient is on between 2 to 6 L/min of supplemental oxygen's depending on activities. Fasting sugar 220 this morning. H&H 7.6 and 24.6, respectively which would present a drop relative to yesterday. Urine output: 300ml overnight. Troponin 0.03-->0.07-->0.09. CoVID PCR negative. Echocardiogram showing grade 2 diastolic dysfunctions and mild pulmonary hypertension's. No reported him at emesis or bloody stool. Denies chest pain. Denies abdominal pain. Improving degree of shortness of breath. Denies cough or wheezing. Denies fever or chills. Continue IV Lasix and fluid restrictions for CHF exacerbations. Continue azithromycin and prednisone as well as DuoNeb for COPD exacerbations. We will check troponin this morning. We will also check stool occult blood to rule out GI bleeding. Pending physical therapy and Occupational Therapy evaluations and treatments. Constitutional Vitals: Vital Signs Temp Pulse Resp BP Pulse Ox 36.3 C 73 21 102/85 93 04/13/22 08:07 04/13/22 10:09 04/13/22 10:09 04/13/22 10:09 04/13/22 10:09 Period Temp Pulse Resp BP Sys/Calderon Pulse Ox Last 24 Hr 36.2 C-36.9 C 72-90 14-24 102-160/54-124 90-98 Intake and Output 04/12/22 04/13/22 04/13/22 21:59 05:59 13:59 Intake Total 720 240 Output Total 1 301 300 Balance 719 -301 -60 Weight 81.335 kg Intake & Output: Intake & Output 04/12/22 04/13/22 04/13/22 21:59 05:59 13:59 Intake Total 720 240 Output Total 1 301 300 Balance 719 -301 -60 Weight 81.335 kg Intake: Oral 720 240 Output: Void Amount 300 300 # of times incontinent of urine 1 1 Other: Meal Dinner Applesauce Breakfast Percent of Meal Consumed 100% 100% 100% Feeding Ability Assist with Tray Set Up Independent Independent Urine Color Bright Yellow Straw Stool Size Small Small Stool Color Brown Brown Green Stool Consistency Formed Soft Head Head exam: Present atraumatic and normal inspection Eye Eye exam: Present normal appearance ENT ENT exam: Present mucous membranes moist, normal exam and normal external ear exam Additional comments: Nasal cannula in place Neck Neck exam: Present normal inspection Respiratory Respiratory exam: Present normal respiratory exam and rhonchi Cardiovascular Cardiovascular exam: Present normal rate and rhythm GI/Abdominal GI/Abdominal exam: Present normal bowel sounds Extremities Exam Extremities exam: Present pedal edema Back Exam Back exam: Present normal inspection Neurological Exam Neurological exam: Present alert and oriented X3 Skin Skin exam: Present intact and warm OBJ DATA Labs CBC & Chem 7: 04/13/22 05:18 04/13/22 05:18 Labs: Abnormal Lab Results 04/13/22 04/13/22 04/13/22 05:18 05:18 00:26 WBC 18.2 H RBC 2.85 L Hgb 7.6 L Hct 24.6 L POC Hct MCHC 30.9 L RDW 15.7 H Immature Gran % (Auto) 0.6 H Neut % (Auto) 86.6 H Lymph % (Auto) 5.2 L Lymph # (Auto) 0.94 L [place] # (Auto) 1.37 H Immature Gran # 0.11 H Absolute Neutrophils 15.91 H POC pH POC pO2 POC HCO3 POC ABG Base Excess POC VBG pCO2 at Temp POC VBG pO2 POC VBG HCO3 POC VBG Total CO2 POC Venous O2 Sat POC VBG Base Excess Hgb O2 Saturation Carbon Dioxide 19 L POC Total CO2 POC BUN BUN 36 H Creatinine 1.6 H POC Creatinine Glucose 201 H POC Glucose Hemoglobin A1c POC Arterial Lactate POC Venous Lactate Troponin T 0.09 H* NT-Pro-B Natriuret Pep Albumin 3.1 L Beta-Hydroxybutyrate 04/12/22 04/12/22 04/12/22 22:04 18:57 17:57 WBC RBC Hgb Hct POC Hct MCHC RDW Immature Gran % (Auto) Neut % (Auto) Lymph % (Auto) Lymph # (Auto) [place] # (Auto) Immature Gran # Absolute Neutrophils POC pH 7.30 L POC pO2 38 L* POC HCO3 18.7 L POC ABG Base Excess -8.0 L POC VBG pCO2 at Temp 39.3 L POC VBG pO2 44 H POC VBG HCO3 20.9 L POC VBG Total CO2 22.0 L POC Venous O2 Sat 76.0 H POC VBG Base Excess -5.0 L Hgb O2 Saturation 67.0 L Carbon Dioxide POC Total CO2 20.0 L POC BUN BUN Creatinine POC Creatinine Glucose POC Glucose Hemoglobin A1c POC Arterial Lactate 3.9 H POC Venous Lactate 2.3 H Troponin T 0.07 H* NT-Pro-B Natriuret Pep Albumin Beta-Hydroxybutyrate 04/12/22 04/12/22 04/12/22 12:08 06:27 05:52 WBC RBC Hgb Hct POC Hct MCHC RDW Immature Gran % (Auto) Neut % (Auto) Lymph % (Auto) Lymph # (Auto) [place] # (Auto) Immature Gran # Absolute Neutrophils POC pH POC pO2 POC HCO3 POC ABG Base Excess POC VBG pCO2 at Temp 36.6 L POC VBG pO2 POC VBG HCO3 21.1 L POC VBG Total CO2 22.0 L POC Venous O2 Sat POC VBG Base Excess -4.0 L Hgb O2 Saturation Carbon Dioxide POC Total CO2 POC BUN BUN Creatinine POC Creatinine Glucose POC Glucose Hemoglobin A1c POC Arterial Lactate POC Venous Lactate Troponin T 0.03 H NT-Pro-B Natriuret Pep Albumin Beta-Hydroxybutyrate 1.22 H 04/12/22 04/12/22 04/12/22 05:52 05:49 05:49 WBC RBC Hgb Hct POC Hct 28.0 L MCHC RDW Immature Gran % (Auto) Neut % (Auto) Lymph % (Auto) Lymph # (Auto) [place] # (Auto) Immature Gran # Absolute Neutrophils POC pH POC pO2 POC HCO3 POC ABG Base Excess POC VBG pCO2 at Temp POC VBG pO2 POC VBG HCO3 POC VBG Total CO2 POC Venous O2 Sat POC VBG Base Excess Hgb O2 Saturation Carbon Dioxide POC Total CO2 21.0 L POC BUN 30 H BUN Creatinine POC Creatinine 1.4 H Glucose POC Glucose 308 H Hemoglobin A1c 7.4 H POC Arterial Lactate POC Venous Lactate Troponin T NT-Pro-B Natriuret Pep 4482.0 H Albumin Beta-Hydroxybutyrate 04/12/22 05:49 WBC 15.4 H RBC 3.47 L Hgb 9.3 L Hct 29.9 L POC Hct MCHC RDW 15.9 H Immature Gran % (Auto) 0.7 H Neut % (Auto) Lymph % (Auto) 10.2 L Lymph # (Auto) [place] # (Auto) 1.76 H Immature Gran # 0.10 H Absolute Neutrophils 11.93 H POC pH POC pO2 POC HCO3 POC ABG Base Excess POC VBG pCO2 at Temp POC VBG pO2 POC VBG HCO3 POC VBG Total CO2 POC Venous O2 Sat POC VBG Base Excess Hgb O2 Saturation Carbon Dioxide POC Total CO2 POC BUN BUN Creatinine POC Creatinine Glucose POC Glucose Hemoglobin A1c POC Arterial Lactate POC Venous Lactate Troponin T NT-Pro-B Natriuret Pep Albumin Beta-Hydroxybutyrate Meds: Medications Acetaminophen (Acetaminophen 325 Mg Tablet) 650 mg PO Q6HP PRN; Protocol PRN Reason: Per Pain Protocol/Fever > 101 Last Admin: 04/13/22 10:37 Dose: 650 mg Documented by: Hydrocodone Bitart/Acetaminophen (Hydrocodone/Apap 5/325mg Tablet) 1 tab PO DAILYP PRN PRN Reason: Pain Albuterol Sulfate (Albuterol Sulfate 200 Puff Inhaler) 2 puff INH Q6H PRN PRN Reason: shortness of breath or wheezing Albuterol Sulfate (Albuterol Sulfate 2.5 Mg/3 Ml Nebulizer) 2.5 mg NEB Q2HP PRN PRN Reason: Shortness Of Breath Albuterol/Ipratropium (Ipratropium/Albuterol 3 Ml Ampul.Neb) 3 ml NEB Q6HRT [facility] Amlodipine Besylate (Amlodipine 10 Mg Tablet) 10 mg PO QDAY [facility] Last Admin: 04/13/22 08:31 Dose: 10 mg Documented by: Aspirin (Aspirin 325 Mg Enteric Coated Tablet) 325 mg PO QDAY [facility] Last Admin: 04/13/22 08:30 Dose: 325 mg Documented by: Azithromycin (Azithromycin 250 Mg Tablet) 250 mg PO DAILY [facility]; Protocol Stop: 04/16/22 09:01 Last Admin: 04/13/22 08:30 Dose: 250 mg Documented by: Dextrose (Dextrose 50% 50 Ml Vial) 0 ml IV UD PRN PRN Reason: Per Sliding Scale Diagnostic Test (Pha) (Accu-Chek 1 Each Strip) 1 each FS ACHS [facility] Last Admin: 04/13/22 07:54 Dose: 1 each Documented by: Docusate Sodium (Docusate Sodium 100 Mg Capsule) 100 mg PO BID [facility] Last Admin: 04/13/22 08:31 Dose: 100 mg Documented by: Furosemide (Furosemide 40 Mg/4 Ml Vial) 40 mg IV BIDD [facility] Last Admin: 04/13/22 08:30 Dose: 40 mg Documented by: Gabapentin (Gabapentin 300 Mg Capsule) 300 mg PO QID [facility] Last Admin: 04/13/22 08:31 Dose: 300 mg Documented by: Glucose (Dextrose 31 Gm Oral.Susp) 15 gm PO PRN PRN PRN Reason: Hypoglycemia Guaifenesin (Guaifenesin/Dextromethorphan Oral María) 10 ml PO Q4HP PRN PRN Reason: Cough Heparin Sodium (Porcine) (Heparin 5,000 Unit/Ml Vial) 5,000 unit SQ Q12 [facility] Last Admin: 04/13/22 08:30 Dose: 5,000 unit Documented by: Insulin Glargine (Insulin Glargine, Human 1 Unit/0.01 Ml) 56 unit SQ HS [facility] Last Admin: 04/12/22 21:04 Dose: 56 units Documented by: Insulin Human Lispro (Insulin Lispro 1 Unit/0.01 Ml Unit) 0 unit SQ ACHS [facility]; Protocol Last Admin: 04/13/22 08:29 Dose: 9 units Documented by: Insulin Human Lispro (Insulin Lispro 1 Unit/0.01 Ml Unit) 20 unit SQ AC [facility] Last Admin: 04/13/22 08:30 Dose: 20 unit Documented by: Losartan Potassium (Losartan 50 Mg Tablet) 50 mg PO DAILY [facility] Last Admin: 04/13/22 08:31 Dose: 50 mg Documented by: Metoprolol Succinate (Metoprolol Succinate 50 Mg Tab.Xl.24h) 100 mg PO QDAY [facility] Last Admin: 04/13/22 08:31 Dose: 100 mg Documented by: Morphine Sulfate (Morphine 4 Mg/Ml Vial) 4 mg IV Q4HP PRN; Protocol PRN Reason: Per Pain Protocol Nitroglycerin (Nitroglycerin 0.4 Mg Tab.Subl) 0.4 mg SL Q5M PRN PRN Reason: Chest Pain Omeprazole (Omeprazole 20 Mg Capsule) 20 mg PO QDAY [facility] Last Admin: 04/13/22 08:31 Dose: 20 mg Documented by: Ondansetron HCl (Ondansetron 4 Mg/2 Ml Vial) 4 mg IV Q6HP PRN PRN Reason: Nausea And Vomiting Randall 5-Foa-Xce-Fish Oil-Krill [Megared Advanced 1 dose PO DAILY [facility] Last Admin: 04/13/22 08:50 Dose: Not Given Documented by: Prednisone (Prednisone 20 Mg Tablet) 40 mg PO [facility] Last Admin: 04/13/22 08:30 Dose: 40 mg Documented by: Senna (Sennosides 1 Tablet) 2 tab PO [facility] Last Admin: 04/12/22 23:07 Dose: 2 tab Documented by: Sodium Chloride (0.9 % Sodium Chloride 10 Ml Syringe) 10 ml IV Q8 [facility] Last Admin: 04/13/22 05:59 Dose: Not Given Documented by: Trazodone HCl (Trazodone Hcl 50 Mg Tablet) 25 mg PO [facility] PRN PRN Reason: Insomnia A/P Assessment and plan (1) CAD (coronary artery disease): Status: Acute (2) DM2 (diabetes mellitus, type 2): Status: Acute (3) Anemia, normocytic normochromic: Status: Acute (4) CHF exacerbation: Status: Acute (5) COPD exacerbation: Status: Acute (6) Chronic kidney disease (CKD) stage G3a/A1, moderately decreased glomerular filtration rate (GFR) between 45-59 mL/min/1.73 square meter and albuminuria creatinine ratio less than 30 mg/g: Status: Acute (7) Diastolic CHF: Status: Acute (8) Pulmonary hypertension: Status: Acute Narrative A/P Narrative: Assessment and Plans: 1. Grade II diastolic CHF exacerbation with mild pulmonary hypertension: Inpatient med surg telemetry Strict intake and output measurement Daily weigh 2L/day fluid restriction Lasix 40mg IV BID Supplemental oxygen therapy titrate to achieve spo2>=88% given COPDer Physical therapy Occupational therapy 2D echocardiogram showing: Grade II diastolic CHF with mild pulmonary hypertension 2. COPD exacerbation: Supplemental oxygen therapy titrate to achieve spo2>=88% given COPDer DuoNEB NEB Prednisone Zithromax 3. T2DM: HgA1c 7.4 Lantus HS Lispro TID AC SSI AC HS Gabapentin Accu Chek AC HS Hypoglycemia protocol Diabetic diet 4. Chronic kidney disease III: Avoid nephrotoxic agents Saline lock CMP daily to trend kidney functions 5. h/o CAD: Randall 3 oil Metoprolol ER Aspirin Amlodipine Valsartan 6. Anemia, normochromic normocytic: cbc w/ auto diff daily to trend H/H GI ppx: continue oral PPI from home regimen DVT ppx: Heparin Code status: Full Prognosis: guarded Disposition: Inpatient med surg telemetry; PT OT Time Spent With Patient Time: Total time spent is greater than 50% in coordination of care (as documented) at patient's floor/unit and/or counseling patient: Total time spent with greater than 50% in coordination of care (as documented) at patient's floor/unit and/or counseling patient:: 35 - 50 minutes QUALITY VTE Deep Vein Thrombosis/Pulmonary Embolism Present on Admission: No
--- NOTE | 2022-04-13 12:51 | EKG ---
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
--- NOTE | 2022-04-13 12:55 | EKG ---
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
[2022-04-13] MEDS: SENNOSIDES 1 TABLET PO SCH (21:27)
[2022-04-13] MEDS: INSULIN GLARGINE, HUMAN 1 UNIT/0.01 ML SQ SCH (21:41)
[2022-04-14] MEDS: IPRATROPIUM/ALBUTEROL 3 ML AMPUL.NEB NEB SCH ×4 (01:06→19:00)
[2022-04-14] MEDS: 0.9 % SODIUM CHLORIDE 10 ML SYRINGE IV SCH ×3 (06:00→21:01)
[2022-04-14 07:29] LABS: Basophils # (Auto) 0.02 K/mcL (0.00-0.30); Basophils % (Auto) 0.1 % (0.0-2.0); Eosinophils # (Auto) 0 K/mcL (0.00-0.70); Eosinophils % (Auto) 0 % (0.0-7.0); Hematocrit 24.4 % (34.1-44.9); Hemoglobin 7.6 g/dL (11.2-15.7); Lymphocytes # (Auto) 1.19 K/mcL (1.50-4.80); Lymphocytes % (Auto) 6.3 % (15.5-49.0); Mean Cell Volume 87.1 fL (80.0-100.0); Mean Corpuscular HGB Conc 31.1 g/dL (31.0-36.0); Mean Platelet Volume 10.2 fL (7.4-10.4); Monocytes % (Auto) 8.4 % (1.0-12.0); Neutrophils % (Auto) 84.6 % (38.0-78.0); Platelet Count 300 K/mcL (140-440); Red Cell Distribution Width 16.3 % (11.5-14.5)
[2022-04-14 07:47] LABS: ALT/SGPT 33 U/L (<40); AST/SGOT 33 U/L (<32); Albumin 3.2 gm/dL (3.2-5.2); Albumin/Globulin Ratio 0.9 (1.0-2.3); Alkaline Phosphatase 99 U/L (39-117); Bilirubin,Total 0.2 mg/dL (0.1-1.0); Blood Urea Nitrogen 66 mg/dL (8-23); Carbon Dioxide 19 mmol/L (22-30); Chloride 101 mmol/L (96-108); Globulin 3.4 gm/dL (2.2-3.7); Glomerular Filtration Rate 20; Glucose 189 mg/dL (70-105); Phosphorous 4.3 mg/dL (2.5-4.5)
[2022-04-14] MEDS: ASPIRIN 325 MG ENTERIC COATED TABLET PO SCH (09:07)
[2022-04-14] MEDS: [UNRECOGNIZED DRUG - OTHER] PO SCH (09:08)
[2022-04-14] MEDS: HEPARIN 5,000 UNIT/ML VIAL SQ SCH (09:08)
[2022-04-14] MEDS ORDERED: SIMETHICONE 80 MG TAB.CHEW CHEWED PRN (09:12)
[2022-04-14] MEDS: INSULIN LISPRO 1 UNIT/0.01 ML UNIT SQ SCH ×7 (09:16→21:01)
[2022-04-14] MEDS: OMEPRAZOLE 20 MG CAPSULE PO SCH (09:17)
[2022-04-14] MEDS: AZITHROMYCIN 250 MG TABLET PO SCH (09:17)
[2022-04-14] MEDS: LOSARTAN 50 MG TABLET PO SCH (09:17)
[2022-04-14] MEDS: predniSONE 20 MG TABLET PO SCH (09:17)
[2022-04-14] MEDS: FUROSEMIDE 40 MG/4 ML VIAL IV SCH ×2 (09:17→17:06)
[2022-04-14] MEDS: amLODIPine 10 MG TABLET PO SCH (09:17)
[2022-04-14] MEDS: METOPROLOL SUCCINATE 50 MG TAB.XL.24H PO SCH (09:18)
[2022-04-14] MEDS: DOCUSATE SODIUM 100 MG CAPSULE PO SCH ×2 (09:18→21:00)
[2022-04-14] MEDS: ACETAMINOPHEN 325 MG TABLET PO PRN (09:18)
[2022-04-14] MEDS: GABAPENTIN 300 MG CAPSULE PO SCH ×4 (09:18→21:00)
--- NOTE | 2022-04-14 09:24 | Internal Med Progress Note ---
SUBJECTIVE Subjective Patient information: Note initiated : 04/14/22 at 9:14 am Service Date, if different from initiated Date: [] Patient: Jim Butler a 81 y/o F admitted on 04/12/22 for SOB . Chief Complaint: [] Interval history: History of present illness: Ms. Butler is a 81 year old F history of recent COVID in February 2022, CHF, CAD status post CABG x4, type 2 diabetes mellitus, presenting with gradual onset, gradually worsening shortness of breath for 5 days. Patient was supposed to be on chlorthalidone which was stopped it during her last hospitalization in February 2022. Over the past 5 days, she is coming of gradually worsening shortness of breath accompanied by nonproductive cough and respiratory wheezings. She is also complaining of chest pain whenever she coughs. She is also coming of subjective fever and shaking chills. She is also complained of general body weakness. She also noticed bilateral leg swellings. She is sleep on a recliner. She is complaining of exertional dyspnea after 50 feet's. She denies any unintentional weight gain. Vital signs at ED presentation significant for tachypnea with rate of breathing in the mid 20s as well as oxygen desaturating to the 70s on room air. She does not use home oxygen. Labs significant for leukocytosis with WBC 15.4 which appears to be her baseline. Serum lactic acid 1.4. Blood glucose in the 300s range. Anion gap 11. COVID is pending. Chest x-ray showing bilateral pulmonary edema. Patient was placed on supplemental oxygen 4 L/min as well as 5 units of regular insulin and admission request was called. 04/13: There was no major overnight events. Patient is on between 2 to 6 L/min of supplemental oxygen's depending on activities. Fasting sugar 220 this morning. H&H 7.6 and 24.6, respectively which would present a drop relative to yesterday. Urine output: 300ml overnight. Troponin 0.03-->0.07-->0.09. CoVID PCR negative. Echocardiogram showing grade 2 diastolic dysfunctions and mild pulmonary hypertension's. No reported him at emesis or bloody stool. Denies chest pain. Denies abdominal pain. Improving degree of shortness of breath. Denies cough or wheezing. Denies fever or chills. Continue IV Lasix and fluid restrictions for CHF exacerbations. Continue azithromycin and prednisone as well as DuoNeb for COPD exacerbations. We will check troponin this morning. We will also check stool occult blood to rule out GI bleeding. Pending physical therapy and Occupational Therapy evaluations and treatments. 04/14: Afebrile overnight. On 5L/min oxygen. Hemoglobin stable at 7.6. Pending stool occult blood screening. 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 c/o improving degree of shortness of breath. c/o nonproductive cough. Denies wheezing. Denies fever chills or sweating. c/o abdominal distension and right side flank pain, aching. OT: STEFAN OT. PT: pending. Continue Lasix IV and fluid restriction and supplemental oxygen for CHF exacerbation. Continue Prednisone, Zithromax, and DuoNeb for COPD exacerbation. CT abdomen pelvis w/o to rule out intraabdominal pathologies. Pending stool occult blood screening. CMP daily to trend kidney functions and electrolytes. Simethicone PRN gas. Constitutional Vitals: Vital Signs Temp Pulse Resp BP Pulse Ox 36.4 C 79 18 121/53 89 L 04/14/22 08:01 04/14/22 08:11 04/14/22 08:11 04/14/22 08:01 04/14/22 08:11 Period Temp Pulse Resp BP Sys/Calderon Pulse Ox Last 24 Hr 36.2 C-37.0 C 65-83 14-23 102-146/49-89 88-96 Intake and Output 04/13/22 04/14/22 04/14/22 21:59 05:59 13:59 Intake Total 240 120 120 Output Total 551 275 Balance -311 -155 120 Weight 84.187 kg Intake & Output: Intake & Output 04/13/22 04/14/22 04/14/22 21:59 05:59 13:59 Intake Total 240 120 120 Output Total 551 275 Balance -311 -155 120 Weight 84.187 kg Intake: Oral 240 120 120 Output: Void Amount 200 275 # of times incontinent of urine 1 Urine/Stool Mix 350 Other: Meal Magic cup Breakfast Percent of Meal Consumed 100% 100% Feeding Ability Independent Assist with Tray Set Up Urine Appearance Clear Clear Urine Color Bright Yellow Bright Yellow Urine Odor Normal Stool Size Small Stool Color Brown Green Stool Consistency Formed # Bowel Movements 1 Head Head exam: Present atraumatic and normal inspection Eye Eye exam: Present normal appearance ENT ENT exam: Present mucous membranes moist, normal exam and normal external ear exam Additional comments: Nasal cannula in place Neck Neck exam: Present normal inspection Respiratory Respiratory exam: Present rhonchi Cardiovascular Cardiovascular exam: Present normal rate and rhythm GI/Abdominal GI/Abdominal exam: Present normal bowel sounds Additional comments: Rogers catheter in place Back Exam Back exam: Present CVA tenderness (R); Absent normal inspection Neurological Exam Neurological exam: Present alert and oriented X3 Skin Skin exam: Present intact and warm OBJ DATA Labs CBC & Chem 7: 04/14/22 05:24 04/14/22 05:24 Labs: Abnormal Lab Results 04/14/22 04/14/22 04/13/22 05:24 05:24 10:38 WBC 19.0 H RBC 2.80 L Hgb 7.6 L Hct 24.4 L POC Hct MCHC RDW 16.3 H Immature Gran % (Auto) 0.6 H Neut % (Auto) 84.6 H Lymph % (Auto) 6.3 L Lymph # (Auto) 1.19 L Corson # (Auto) 1.60 H Immature Gran # 0.12 H Absolute Neutrophils 16.17 H POC pH POC pO2 POC HCO3 POC ABG Base Excess POC VBG pCO2 at Temp POC VBG pO2 POC VBG HCO3 POC VBG Total CO2 POC Venous O2 Sat POC VBG Base Excess Hgb O2 Saturation Carbon Dioxide 19 L POC Total CO2 Anion Gap 17.0 H POC BUN BUN 66 H Creatinine 2.2 H POC Creatinine Glucose 189 H POC Glucose Hemoglobin A1c POC Arterial Lactate POC Venous Lactate AST 33 H Troponin T 0.12 H* NT-Pro-B Natriuret Pep Albumin Albumin/Globulin Ratio 0.9 L Beta-Hydroxybutyrate 04/13/22 04/13/22 04/13/22 05:18 05:18 00:26 WBC 18.2 H RBC 2.85 L Hgb 7.6 L Hct 24.6 L POC Hct MCHC 30.9 L RDW 15.7 H Immature Gran % (Auto) 0.6 H Neut % (Auto) 86.6 H Lymph % (Auto) 5.2 L Lymph # (Auto) 0.94 L Corson # (Auto) 1.37 H Immature Gran # 0.11 H Absolute Neutrophils 15.91 H POC pH POC pO2 POC HCO3 POC ABG Base Excess POC VBG pCO2 at Temp POC VBG pO2 POC VBG HCO3 POC VBG Total CO2 POC Venous O2 Sat POC VBG Base Excess Hgb O2 Saturation Carbon Dioxide 19 L POC Total CO2 Anion Gap POC BUN BUN 36 H Creatinine 1.6 H POC Creatinine Glucose 201 H POC Glucose Hemoglobin A1c POC Arterial Lactate POC Venous Lactate AST Troponin T 0.09 H* NT-Pro-B Natriuret Pep Albumin 3.1 L Albumin/Globulin Ratio Beta-Hydroxybutyrate 04/12/22 04/12/22 04/12/22 22:04 18:57 17:57 WBC RBC Hgb Hct POC Hct MCHC RDW Immature Gran % (Auto) Neut % (Auto) Lymph % (Auto) Lymph # (Auto) Cors[place] # (Auto) Immature Gran # Absolute Neutrophils POC pH 7.30 L POC pO2 38 L* POC HCO3 18.7 L POC ABG Base Excess -8.0 L POC VBG pCO2 at Temp 39.3 L POC VBG pO2 44 H POC VBG HCO3 20.9 L POC VBG Total CO2 22.0 L POC Venous O2 Sat 76.0 H POC VBG Base Excess -5.0 L Hgb O2 Saturation 67.0 L Carbon Dioxide POC Total CO2 20.0 L Anion Gap POC BUN BUN Creatinine POC Creatinine Glucose POC Glucose Hemoglobin A1c POC Arterial Lactate 3.9 H POC Venous Lactate 2.3 H AST Troponin T 0.07 H* NT-Pro-B Natriuret Pep Albumin Albumin/Globulin Ratio Beta-Hydroxybutyrate 04/12/22 04/12/22 04/12/22 12:08 06:27 05:52 WBC RBC Hgb Hct POC Hct MCHC RDW Immature Gran % (Auto) Neut % (Auto) Lymph % (Auto) Lymph # (Auto) Cors[place] # (Auto) Immature Gran # Absolute Neutrophils POC pH POC pO2 POC HCO3 POC ABG Base Excess POC VBG pCO2 at Temp 36.6 L POC VBG pO2 POC VBG HCO3 21.1 L POC VBG Total CO2 22.0 L POC Venous O2 Sat POC VBG Base Excess -4.0 L Hgb O2 Saturation Carbon Dioxide POC Total CO2 Anion Gap POC BUN BUN Creatinine POC Creatinine Glucose POC Glucose Hemoglobin A1c POC Arterial Lactate POC Venous Lactate AST Troponin T 0.03 H NT-Pro-B Natriuret Pep Albumin Albumin/Globulin Ratio Beta-Hydroxybutyrate 1.22 H 04/12/22 04/12/22 04/12/22 05:52 05:49 05:49 WBC RBC Hgb Hct POC Hct 28.0 L MCHC RDW Immature Gran % (Auto) Neut % (Auto) Lymph % (Auto) Lymph # (Auto) [place] # (Auto) Immature Gran # Absolute Neutrophils POC pH POC pO2 POC HCO3 POC ABG Base Excess POC VBG pCO2 at Temp POC VBG pO2 POC VBG HCO3 POC VBG Total CO2 POC Venous O2 Sat POC VBG Base Excess Hgb O2 Saturation Carbon Dioxide POC Total CO2 21.0 L Anion Gap POC BUN 30 H BUN Creatinine POC Creatinine 1.4 H Glucose POC Glucose 308 H Hemoglobin A1c 7.4 H POC Arterial Lactate POC Venous Lactate AST Troponin T NT-Pro-B Natriuret Pep 4482.0 H Albumin Albumin/Globulin Ratio Beta-Hydroxybutyrate 04/12/22 05:49 WBC 15.4 H RBC 3.47 L Hgb 9.3 L Hct 29.9 L POC Hct MCHC RDW 15.9 H Immature Gran % (Auto) 0.7 H Neut % (Auto) Lymph % (Auto) 10.2 L Lymph # (Auto) Corson # (Auto) 1.76 H Immature Gran # 0.10 H Absolute Neutrophils 11.93 H POC pH POC pO2 POC HCO3 POC ABG Base Excess POC VBG pCO2 at Temp POC VBG pO2 POC VBG HCO3 POC VBG Total CO2 POC Venous O2 Sat POC VBG Base Excess Hgb O2 Saturation Carbon Dioxide POC Total CO2 Anion Gap POC BUN BUN Creatinine POC Creatinine Glucose POC Glucose Hemoglobin A1c POC Arterial Lactate POC Venous Lactate AST Troponin T NT-Pro-B Natriuret Pep Albumin Albumin/Globulin Ratio Beta-Hydroxybutyrate Meds: Medications Acetaminophen (Acetaminophen 325 Mg Tablet) 650 mg PO Q6HP PRN; Protocol PRN Reason: Per Pain Protocol/Fever > 101 Last Admin: 04/13/22 21:42 Dose: 650 mg Documented by: Hydrocodone Bitart/Acetaminophen (Hydrocodone/Apap 5/325mg Tablet) 1 tab PO DAILYP PRN PRN Reason: Pain Last Admin: 04/14/22 04:32 Dose: 1 tab Documented by: Albuterol Sulfate (Albuterol Sulfate 200 Puff Inhaler) 2 puff INH Q6H PRN PRN Reason: shortness of breath or wheezing Albuterol Sulfate (Albuterol Sulfate 2.5 Mg/3 Ml Nebulizer) 2.5 mg NEB Q2HP PRN PRN Reason: Shortness Of Breath Albuterol/Ipratropium (Ipratropium/Albuterol 3 Ml Ampul.Neb) 3 ml NEB Q6HRT [facility] Last Admin: 04/14/22 07:46 Dose: 3 ml Documented by: Amlodipine Besylate (Amlodipine 10 Mg Tablet) 10 mg PO QDAY [facility] Last Admin: 04/13/22 08:31 Dose: 10 mg Documented by: Azithromycin (Azithromycin 250 Mg Tablet) 250 mg PO DAILY [facility]; Protocol Stop: 04/16/22 09:01 Last Admin: 04/13/22 08:30 Dose: 250 mg Documented by: Dextrose (Dextrose 50% 50 Ml Vial) 0 ml IV UD PRN PRN Reason: Per Sliding Scale Diagnostic Test (Pha) (Accu-Chek 1 Each Strip) 1 each FS [facility] Last Admin: 04/14/22 08:15 Dose: 1 each Documented by: Docusate Sodium (Docusate Sodium 100 Mg Capsule) 100 mg PO BID [facility] Last Admin: 04/13/22 21:26 Dose: 100 mg Documented by: Furosemide (Furosemide 40 Mg/4 Ml Vial) 40 mg IV BIDD [facility] Last Admin: 04/13/22 16:06 Dose: 40 mg Documented by: Gabapentin (Gabapentin 300 Mg Capsule) 300 mg PO QID [facility] Last Admin: 04/13/22 21:26 Dose: 300 mg Documented by: Glucose (Dextrose 31 Gm Oral.Susp) 15 gm PO PRN PRN PRN Reason: Hypoglycemia Guaifenesin (Guaifenesin/Dextromethorphan Oral María) 10 ml PO Q4HP PRN PRN Reason: Cough Insulin Glargine (Insulin Glargine, Human 1 Unit/0.01 Ml) 56 unit SQ [facility] Last Admin: 04/13/22 21:41 Dose: 56 units Documented by: Insulin Human Lispro (Insulin Lispro 1 Unit/0.01 Ml Unit) 0 unit SQ [facility]; Protocol Last Admin: 04/13/22 21:26 Dose: Not Given Documented by: Insulin Human Lispro (Insulin Lispro 1 Unit/0.01 Ml Unit) 20 unit SQ [facility] Last Admin: 04/13/22 17:20 Dose: 20 unit Documented by: Losartan Potassium (Losartan 50 Mg Tablet) 50 mg PO DAILY [facility] Last Admin: 04/13/22 08:31 Dose: 50 mg Documented by: Magnesium Oxide (Magnesium Oxide 400 Mg Tablet) 800 mg PO DAILY [facility] Metoprolol Succinate (Metoprolol Succinate 50 Mg Tab.Xl.24h) 100 mg PO QDAY [facility] Last Admin: 04/13/22 08:31 Dose: 100 mg Documented by: Morphine Sulfate (Morphine 4 Mg/Ml Vial) 4 mg IV Q4HP PRN; Protocol PRN Reason: Per Pain Protocol Nitroglycerin (Nitroglycerin 0.4 Mg Tab.Subl) 0.4 mg SL Q5M PRN PRN Reason: Chest Pain Omeprazole (Omeprazole 20 Mg Capsule) 20 mg PO QDAY [facility] Last Admin: 04/13/22 08:31 Dose: 20 mg Documented by: Ondansetron HCl (Ondansetron 4 Mg/2 Ml Vial) 4 mg IV Q6HP PRN PRN Reason: Nausea And Vomiting Ellsworth 3-Rns-Hdb-Fish Oil-Krill [Megared Advanced 1 dose PO DAILY [facility] Last Admin: 04/14/22 09:08 Dose: Not Given Documented by: Prednisone (Prednisone 20 Mg Tablet) 40 mg PO [facility] Last Admin: 04/13/22 08:30 Dose: 40 mg Documented by: Senna (Sennosides 1 Tablet) 2 tab PO [facility] Last Admin: 04/13/22 21:27 Dose: 2 tab Documented by: Simethicone (Simethicone 80 Mg Tab.Chew) 80 mg CHEWED QIDP PRN PRN Reason: Dyspepsia Sodium Chloride (0.9 % Sodium Chloride 10 Ml Syringe) 10 ml IV Q8 [facility] Last Admin: 04/14/22 06:00 Dose: 10 ml Documented by: Trazodone HCl (Trazodone Hcl 50 Mg Tablet) 25 mg PO HSP PRN PRN Reason: Insomnia A/P Assessment and plan (1) CAD (coronary artery disease): Status: Acute (2) DM2 (diabetes mellitus, type 2): Status: Acute (3) Anemia, normocytic normochromic: Status: Acute (4) CHF exacerbation: Status: Acute (5) COPD exacerbation: Status: Acute (6) Chronic kidney disease (CKD) stage G3a/A1, moderately decreased glomerular filtration rate (GFR) between 45-59 mL/min/1.73 square meter and albuminuria creatinine ratio less than 30 mg/g: Status: Acute (7) Diastolic CHF: Status: Acute (8) Pulmonary hypertension: Status: Acute (9) Hypomagnesemia: Status: Acute Narrative A/P Narrative: Assessment and Plans: 1. Grade II diastolic CHF exacerbation with mild pulmonary hypertension: Inpatient PCU Strict intake and output measurement Daily weigh 2L/day fluid restriction Lasix 40mg IV BID Supplemental oxygen therapy titrate to achieve spo2>=88% given COPDer Physical therapy, pending Occupational therapy: HH OT 2D echocardiogram showing: Grade II diastolic CHF with mild pulmonary hypertension 2. COPD exacerbation: Supplemental oxygen therapy titrate to achieve spo2>=88% given COPDer DuoNEB NEB Prednisone Zithromax 3. T2DM: HgA1c 7.4 Lantus HS Lispro TID AC SSI AC HS Gabapentin Accu Chek AC HS Hypoglycemia protocol Diabetic diet 4. Chronic kidney disease III, with acute kidney injury: Avoid nephrotoxic agents Saline lock with IV diuretics for now CMP daily to trend kidney functions CT abdomen pelvis w/o 5. h/o CAD: Ellsworth 3 oil Metoprolol ER d/c Aspirin given worsening anemia Amlodipine Valsartan 6. Anemia, normochromic normocytic: cbc w/ auto diff daily to trend H/H Stool guaiac pending 7. Hypomagnesemia: Mg oxide oral replacement Repeat serum Mg level in the morning GI ppx: continue oral PPI from home regimen DVT ppx: SCDs Code status: Full Prognosis: guarded Disposition: Inpatient PCU; PT OT: HHOT Time Spent With Patient Time: Total time spent is greater than 50% in coordination of care (as documented) at patient's floor/unit and/or counseling patient: Total time spent with greater than 50% in coordination of care (as documented) at patient's floor/unit and/or counseling patient:: 50 - 70 minutes QUALITY VTE Deep Vein Thrombosis/Pulmonary Embolism Present on Admission: No
--- NOTE | 2022-04-14 11:26 | Cat Scan Report ---
History: Flank pain, hematuria, short of breath, diabetes TECHNIQUE: The patient was imaged without contrast in axial plane at 2.5 mm intervals from above the diaphragm through the symphysis pubis. Sagittal and coronal reformats were created. The radiation exposure was limited using dose reduction technology. FINDINGS: There are small to moderate-sized bilateral layering pleural effusions. There is partial consolidation of lung parenchyma in both lower lobes and lingula. This may be a combination of pneumonia and atelectasis. Moderate amount calcified plaque is present in the coronary arteries. Beneath the xiphoid there is a midline fat-containing hernia measuring 2.7 cm in greatest dimension. There is no entrapment of bowel. Evaluation of the abdominal organs without contrast is somewhat limited. The liver and spleen are normal in size and homogeneous. The gallbladder has been removed. The bile ducts are nondilated. There is atrophy of the pancreas. Pancreatic duct is nondilated and there is no evidence of inflammation or calcification in or around the pancreas. The adrenals are normal and symmetric. Both kidneys are relatively small but there is no focal scar. No mass effect is seen within either kidney. There are several calcifications in the central portion of both kidneys. The vast majority of these are atherosclerotic plaques. There is also a 2 x 4 mm calyceal stone laterally in the lower third of the right kidney. There may be a 2 mm parenchymal stone in the upper pole of the left kidney. The renal collecting systems are decompressed. No stone is identified within the ureters. Patient has a left hip prosthesis which does create beam hardening artifact in the lower pelvis, partially obscuring the distal ureters. Urinary bladder is nearly empty. No stone or mass are seen within the lumen. The uterus has been removed. Left ovary is atrophic. Right ovary is not clearly identified. There are several diverticula in the sigmoid colon but there is no acute diverticulitis or bowel obstruction. No mass, adenopathy or ascites are present. The appendix is noninflamed. Large amount calcified plaque is present along the wall of normal caliber abdominal aorta, celiac, superior mesenteric , splenic and iliac arteries. There is degenerative disc disease and arthritis throughout the lumbar spine. Severe spinal canal stenosis is present at L2-3, L3-4 and L4-5. IMPRESSION: Small nonobstructing stone in the right kidney. Atelectasis or pneumonia in both lung bases with superimposed pleural effusions. Spinal canal stenosis at multiple levels Severe atherosclerosis and no aneurysm Interpreted and Authenticated by: Danie Schmitt 04/14/22
[2022-04-14] MEDS: SENNOSIDES 1 TABLET PO SCH (21:00)
[2022-04-14] MEDS: INSULIN GLARGINE, HUMAN 1 UNIT/0.01 ML SQ SCH (21:01)
[2022-04-15] MEDS: IPRATROPIUM/ALBUTEROL 3 ML AMPUL.NEB NEB SCH ×5 (02:26→19:20)
[2022-04-15] MEDS: 0.9 % SODIUM CHLORIDE 10 ML SYRINGE IV SCH ×3 (05:40→20:16)
[2022-04-15 06:21] LABS: Basophils # (Auto) 0.01 K/mcL (0.00-0.30); Basophils % (Auto) 0.1 % (0.0-2.0); Eosinophils # (Auto) 0 K/mcL (0.00-0.70); Eosinophils % (Auto) 0 % (0.0-7.0); Hematocrit 23.6 % (34.1-44.9); Hemoglobin 7.2 g/dL (11.2-15.7); Lymphocytes # (Auto) 0.91 K/mcL (1.50-4.80); Lymphocytes % (Auto) 7.3 % (15.5-49.0); Mean Cell Volume 87.1 fL (80.0-100.0); Mean Corpuscular HGB Conc 30.5 g/dL (31.0-36.0); Mean Platelet Volume 10.1 fL (7.4-10.4); Monocytes # (Auto) 1.02 K/mcL (0.10-0.90); Monocytes % (Auto) 8.2 % (1.0-12.0); Neutrophils % (Auto) 82.7 % (38.0-78.0); Platelet Count 288 K/mcL (140-440); RBC 2.71 M/mcL (3.59-5.38); Red Cell Distribution Width 16.4 % (11.5-14.5); WBC 12.5 K/mcL (4.5-11.0)
[2022-04-15 06:48] LABS: ALT/SGPT 36 U/L (<40); AST/SGOT 24 U/L (<32); Alkaline Phosphatase 89 U/L (39-117); Bilirubin,Total 0.2 mg/dL (0.1-1.0); Blood Urea Nitrogen 62 mg/dL (8-23); Calcium 8.6 mg/dL (8.6-10.4); Carbon Dioxide 20 mmol/L (22-30); Chloride 102 mmol/L (96-108); Globulin 3.1 gm/dL (2.2-3.7); Glomerular Filtration Rate 21; Glucose 228 mg/dL (70-105); Phosphorous 4.1 mg/dL (2.5-4.5)
[2022-04-15] MEDS: INSULIN LISPRO 1 UNIT/0.01 ML UNIT SQ SCH ×7 (08:27→20:15)
[2022-04-15] MEDS: predniSONE 20 MG TABLET PO SCH (08:28)
[2022-04-15] MEDS: METOPROLOL SUCCINATE 50 MG TAB.XL.24H PO SCH (08:28)
[2022-04-15] MEDS: MAGNESIUM OXIDE 400 MG TABLET PO SCH (08:29)
[2022-04-15] MEDS: DOCUSATE SODIUM 100 MG CAPSULE PO SCH ×2 (08:29→20:16)
[2022-04-15] MEDS: AZITHROMYCIN 250 MG TABLET PO SCH (08:29)
[2022-04-15] MEDS: GABAPENTIN 300 MG CAPSULE PO SCH ×4 (08:29→20:16)
[2022-04-15] MEDS: LOSARTAN 50 MG TABLET PO SCH (08:29)
[2022-04-15] MEDS: amLODIPine 10 MG TABLET PO SCH (08:29)
[2022-04-15] MEDS: OMEPRAZOLE 20 MG CAPSULE PO SCH (08:29)
[2022-04-15] MEDS: [UNRECOGNIZED DRUG - OTHER] PO SCH (08:30)
[2022-04-15] MEDS: FUROSEMIDE 40 MG/4 ML VIAL IV SCH (08:30)
--- NOTE | 2022-04-15 10:59 | Internal Med Progress Note ---
SUBJECTIVE Subjective Patient information: Note initiated : 04/15/22 at 10:50 am Service Date, if different from initiated Date: [] Patient: Jim Butler a 81 y/o F admitted on 04/12/22 for SOB . Chief Complaint: [] Interval history: History of present illness: Ms. Butler is a 81 year old F history of recent COVID in February 2022, CHF, CAD status post CABG x4, type 2 diabetes mellitus, presenting with gradual onset, gradually worsening shortness of breath for 5 days. Patient was supposed to be on chlorthalidone which was stopped it during her last hospitalization in February 2022. Over the past 5 days, she is coming of gradually worsening shortness of breath accompanied by nonproductive cough and respiratory wheezings. She is also complaining of chest pain whenever she coughs. She is also coming of subjective fever and shaking chills. She is also complained of general body weakness. She also noticed bilateral leg swellings. She is sleep on a recliner. She is complaining of exertional dyspnea after 50 feet's. She denies any unintentional weight gain. Vital signs at ED presentation significant for tachypnea with rate of breathing in the mid 20s as well as oxygen desaturating to the 70s on room air. She does not use home oxygen. Labs significant for leukocytosis with WBC 15.4 which appears to be her baseline. Serum lactic acid 1.4. Blood glucose in the 300s range. Anion gap 11. COVID is pending. Chest x-ray showing bilateral pulmonary edema. Patient was placed on supplemental oxygen 4 L/min as well as 5 units of regular insulin and admission request was called. 04/13: There was no major overnight events. Patient is on between 2 to 6 L/min of supplemental oxygen's depending on activities. Fasting sugar 220 this morning. H&H 7.6 and 24.6, respectively which would present a drop relative to yesterday. Urine output: 300ml overnight. Troponin 0.03-->0.07-->0.09. CoVID PCR negative. Echocardiogram showing grade 2 diastolic dysfunctions and mild pulmonary hypertension's. No reported him at emesis or bloody stool. Denies chest pain. Denies abdominal pain. Improving degree of shortness of breath. Denies cough or wheezing. Denies fever or chills. Continue IV Lasix and fluid restrictions for CHF exacerbations. Continue azithromycin and prednisone as well as DuoNeb for COPD exacerbations. We will check troponin this morning. We will also check stool occult blood to rule out GI bleeding. Pending physical therapy and Occupational Therapy evaluations and treatments. 04/14: Afebrile overnight. On 5L/min oxygen. Hemoglobin stable at 7.6. Pending stool occult blood screening. Urine output 500cc yesterday day shift and 275cc date night caregiver. c/o improving degree of shortness of breath. c/o nonproductive cough. Denies wheezing. Denies fever chills or sweating. c/o abdominal distension and right side flank pain, aching. OT: HH OT. PT: pending. Continue Lasix IV and fluid restriction and supplemental oxygen for CHF exacerbation. Continue Prednisone, Zithromax, and DuoNeb for COPD exacerbation. CT abdomen pelvis w/o to rule out intraabdominal pathologies. Pending stool occult blood screening. CMP daily to trend kidney functions and electrolytes. Simethicone PRN gas. 04/15: Between 5-8L/min oxygen depending on activities. Afebrile overnight. Neutral fluid balance. Patient is c/o improving degree of shortness of breath with nonproductive cough and no wheezing. She is coming of anxiety. She is complaining of bilateral leg swellings. Both physical therapist and occupational therapist recommend home health upon hospital discharge. Hemoglobin 7.6-->7.2. No bloody stool or black stool. Denies chest pain or palpitation. Switched diuretics from IV Lasix to Bumex. An event p.o. as needed anxiety. Downgrade to [facility] with telemetry and continuous pulse oximetry. Stool guaiac positive, external hemorrhoid, 1% hydrocortisone cream topical BID Constitutional Vitals: Vital Signs Temp Pulse Resp BP Pulse Ox 36.3 C 72 24 H 154/138 91 04/15/22 08:01 04/15/22 07:23 04/15/22 08:04/15/22 08:04/15/22 08:02 Period Temp Pulse Resp BP Sys/Calderon Pulse Ox Last 24 Hr 36.3 C-36.9 C 72-83 16-24 109-154/49-138 86-97 Intake and Output 06/30/22 07/01/22 07/01/22 21:59 05:59 13:59 Intake Total 220 120 Output Total 525 325 200 Balance -525 -105 -80 Weight 83.552 kg Intake & Output: Intake & Output 04/14/22 04/15/22 04/15/22 21:59 05:59 13:59 Intake Total 220 120 Output Total 525 325 200 Balance -525 -105 -80 Weight 83.552 kg Intake: Oral 220 120 Output: Void Amount 525 325 200 Other: Meal Dinner Breakfast Percent of Meal Consumed 50% 75% Feeding Ability Assist with Tray Set Up Independent Urine Appearance Clear Clear Urine Color Pale Pale Stool Size Small Stool Color Brown Stool Consistency Soft Head Head exam: Present atraumatic and normal inspection Eye Eye exam: Present normal appearance ENT ENT exam: Present mucous membranes moist, normal exam and normal external ear exam Additional comments: Nasal cannula in place Neck Neck exam: Present normal inspection Respiratory Respiratory exam: Present decreased breath sounds and rhonchi Cardiovascular Cardiovascular exam: Present normal rate and rhythm GI/Abdominal GI/Abdominal exam: Present normal bowel sounds Additional comments: External hemorrhoid Back Exam Back exam: Present normal inspection Neurological Exam Neurological exam: Present alert and oriented X3 Skin Skin exam: Present intact and warm OBJ DATA Labs CBC & Chem 7: 04/15/22 05:23 04/15/22 05:23 Labs: Abnormal Lab Results 04/15/22 04/15/22 04/14/22 05:23 05:23 05:24 WBC 12.5 H RBC 2.71 L Hgb 7.2 L Hct 23.6 L MCHC 30.5 L RDW 16.4 H Immature Gran % (Auto) 1.7 H Neut % (Auto) 82.7 H Lymph % (Auto) 7.3 L Lymph # (Auto) 0.91 L [place] # (Auto) 1.02 H Immature Gran # 0.21 H Absolute Neutrophils 10.51 H POC pH POC pO2 POC HCO3 POC Total CO2 POC ABG Base Excess POC VBG pCO2 at Temp POC VBG pO2 POC VBG HCO3 POC VBG Total CO2 POC Venous O2 Sat POC VBG Base Excess Hgb O2 Saturation Carbon Dioxide 20 L 19 L Anion Gap 17.0 H BUN 62 H 66 H Creatinine 2.1 H 2.2 H Glucose 228 H 189 H POC Arterial Lactate POC Venous Lactate AST 33 H Troponin T Albumin 3.0 L Albumin/Globulin Ratio 0.9 L 06/04/13/22 04/13/22 05:24 10:38 05:18 WBC 19.0 H RBC 2.80 L Hgb 7.6 L Hct 24.4 L MCHC RDW 16.3 H Immature Gran % (Auto) 0.6 H Neut % (Auto) 84.6 H Lymph % (Auto) 6.3 L Lymph # (Auto) 1.19 L [place] # (Auto) 1.60 H Immature Gran # 0.12 H Absolute Neutrophils 16.17 H POC pH POC pO2 POC HCO3 POC Total CO2 POC ABG Base Excess POC VBG pCO2 at Temp POC VBG pO2 POC VBG HCO3 POC VBG Total CO2 POC Venous O2 Sat POC VBG Base Excess Hgb O2 Saturation Carbon Dioxide 19 L Anion Gap BUN 36 H Creatinine 1.6 H Glucose 201 H POC Arterial Lactate POC Venous Lactate AST Troponin T 0.12 H* Albumin 3.1 L Albumin/Globulin Ratio 04/13/22 04/13/22 04/12/22 05:18 00:26 22:04 WBC 18.2 H RBC 2.85 L Hgb 7.6 L Hct 24.6 L MCHC 30.9 L RDW 15.7 H Immature Gran % (Auto) 0.6 H Neut % (Auto) 86.6 H Lymph % (Auto) 5.2 L Lymph # (Auto) 0.94 L [place] # (Auto) 1.37 H Immature Gran # 0.11 H Absolute Neutrophils 15.91 H POC pH POC pO2 POC HCO3 POC Total CO2 POC ABG Base Excess POC VBG pCO2 at Temp 39.3 L POC VBG pO2 44 H POC VBG HCO3 20.9 L POC VBG Total CO2 22.0 L POC Venous O2 Sat 76.0 H POC VBG Base Excess -5.0 L Hgb O2 Saturation Carbon Dioxide Anion Gap BUN Creatinine Glucose POC Arterial Lactate POC Venous Lactate 2.3 H AST Troponin T 0.09 H* Albumin Albumin/Globulin Ratio 04/12/22 04/12/22 04/12/22 18:57 17:57 12:08 WBC RBC Hgb Hct MCHC RDW Immature Gran % (Auto) Neut % (Auto) Lymph % (Auto) Lymph # (Auto) [place] # (Auto) Immature Gran # Absolute Neutrophils POC pH 7.30 L POC pO2 38 L* POC HCO3 18.7 L POC Total CO2 20.0 L POC ABG Base Excess -8.0 L POC VBG pCO2 at Temp POC VBG pO2 POC VBG HCO3 POC VBG Total CO2 POC Venous O2 Sat POC VBG Base Excess Hgb O2 Saturation 67.0 L Carbon Dioxide Anion Gap BUN Creatinine Glucose POC Arterial Lactate 3.9 H POC Venous Lactate AST Troponin T 0.07 H* 0.03 H Albumin Albumin/Globulin Ratio Meds: Medications Acetaminophen (Acetaminophen 325 Mg Tablet) 650 mg PO Q6HP PRN; Protocol PRN Reason: Per Pain Protocol/Fever > 101 Last Admin: 04/14/22 09:18 Dose: 650 mg Documented by: Hydrocodone Bitart/Acetaminophen (Hydrocodone/Apap 5/325mg Tablet) 1 tab PO DAILYP PRN PRN Reason: Pain Last Admin: 04/14/22 04:32 Dose: 1 tab Documented by: Albuterol Sulfate (Albuterol Sulfate 200 Puff Inhaler) 2 puff INH Q6H PRN PRN Reason: shortness of breath or wheezing Albuterol Sulfate (Albuterol Sulfate 2.5 Mg/3 Ml Nebulizer) 2.5 mg NEB Q2HP PRN PRN Reason: Shortness Of Breath Albuterol/Ipratropium (Ipratropium/Albuterol 3 Ml Ampul.Neb) 3 ml NEB Q6HRT [facility] Last Admin: 04/15/22 07:23 Dose: 3 ml Documented by: Amlodipine Besylate (Amlodipine 10 Mg Tablet) 10 mg PO QDAY [facility] Last Admin: 04/15/22 08:29 Dose: 10 mg Documented by: Azithromycin (Azithromycin 250 Mg Tablet) 250 mg PO DAILY [facility]; Protocol Stop: 04/16/22 09:01 Last Admin: 04/15/22 08:29 Dose: 250 mg Documented by: Bumetanide (Bumetanide 1 Mg/4 Ml Vial) 2 mg IV BID [facility] Stop: 04/16/22 09:01 Dextrose (Dextrose 50% 50 Ml Vial) 0 ml IV UD PRN PRN Reason: Per Sliding Scale Diagnostic Test (Pha) (Accu-Chek 1 Each Strip) 1 each FS ACHS [facility] Last Admin: 04/15/22 07:45 Dose: 1 each Documented by: Docusate Sodium (Docusate Sodium 100 Mg Capsule) 100 mg PO BID [facility] Last Admin: 04/15/22 08:29 Dose: 100 mg Documented by: Gabapentin (Gabapentin 300 Mg Capsule) 300 mg PO QID [facility] Last Admin: 04/15/22 08:29 Dose: 300 mg Documented by: Glucose (Dextrose 31 Gm Oral.Susp) 15 gm PO PRN PRN PRN Reason: Hypoglycemia Guaifenesin (Guaifenesin/Dextromethorphan Oral María) 10 ml PO Q4HP PRN PRN Reason: Cough Insulin Glargine (Insulin Glargine, Human 1 Unit/0.01 Ml) 56 unit SQ HS [facility] Last Admin: 04/14/22 21:01 Dose: 56 units Documented by: Insulin Human Lispro (Insulin Lispro 1 Unit/0.01 Ml Unit) 0 unit SQ [facility]; Protocol Last Admin: 04/15/22 08:27 Dose: 9 units Documented by: Insulin Human Lispro (Insulin Lispro 1 Unit/0.01 Ml Unit) 20 unit SQ AC [facility] Last Admin: 04/15/22 08:27 Dose: 20 unit Documented by: Lorazepam (Lorazepam 0.5 Mg Tablet) 0.5 mg PO Q4HP PRN PRN Reason: ANXIETY/SEDATION Losartan Potassium (Losartan 50 Mg Tablet) 50 mg PO DAILY [facility] Last Admin: 04/15/22 08:29 Dose: 50 mg Documented by: Magnesium Oxide (Magnesium Oxide 400 Mg Tablet) 800 mg PO DAILY [facility] Last Admin: 04/15/22 08:29 Dose: 800 mg Documented by: Metoprolol Succinate (Metoprolol Succinate 50 Mg Tab.Xl.24h) 100 mg PO QDAY [facility] Last Admin: 04/15/22 08:28 Dose: 100 mg Documented by: Morphine Sulfate (Morphine 4 Mg/Ml Vial) 4 mg IV Q4HP PRN; Protocol PRN Reason: Per Pain Protocol Nitroglycerin (Nitroglycerin 0.4 Mg Tab.Subl) 0.4 mg SL Q5M PRN PRN Reason: Chest Pain Omeprazole (Omeprazole 20 Mg Capsule) 20 mg PO QDAY [facility] Last Admin: 04/15/22 08:29 Dose: 20 mg Documented by: Ondansetron HCl (Ondansetron 4 Mg/2 Ml Vial) 4 mg IV Q6HP PRN PRN Reason: Nausea And Vomiting [place] [id number] Oil-Krill [Megared Advanced 1 dose PO DAILY [facility] Last Admin: 04/15/22 08:30 Dose: Not Given Documented by: Prednisone (Prednisone 20 Mg Tablet) 40 mg PO QASSM [facility] Last Admin: 04/15/22 08:28 Dose: 40 mg Documented by: Senna (Sennosides 1 Tablet) 2 tab PO [facility] Last Admin: 04/14/22 21:00 Dose: 2 tab Documented by: Simethicone (Simethicone 80 Mg Tab.Chew) 80 mg CHEWED QIDP PRN PRN Reason: Dyspepsia Sodium Chloride (0.9 % Sodium Chloride 10 Ml Syringe) 10 ml IV Q8 [facility] Last Admin: 04/15/22 05:40 Dose: 10 ml Documented by: Trazodone HCl (Trazodone Hcl 50 Mg Tablet) 25 mg PO HSP PRN PRN Reason: Insomnia A/P Assessment and plan (1) CAD (coronary artery disease): Status: Acute (2) DM2 (diabetes mellitus, type 2): Status: Acute (3) Anemia, normocytic normochromic: Status: Acute (4) CHF exacerbation: Status: Acute (5) COPD exacerbation: Status: Acute (6) Chronic kidney disease (CKD) stage G3a/A1, moderately decreased glomerular filtration rate (GFR) between 45-59 mL/min/1.73 square meter and albuminuria creatinine ratio less than 30 mg/g: Status: Acute (7) Diastolic CHF: Status: Acute (8) Pulmonary hypertension: Status: Acute (9) Hypomagnesemia: Status: Acute (10) Anxiety: Status: Acute Narrative A/P Narrative: Assessment and Plans: 1. Grade II diastolic CHF exacerbation with mild pulmonary hypertension: Inpatient med surg telemetry Strict intake and output measurement Daily weigh 2L/day fluid restriction Bumex 2mg IV BID Supplemental oxygen therapy titrate to achieve spo2>=88% given COPDer Physical therapy: HH PT Occupational therapy: OT 2D echocardiogram showing: Grade II diastolic CHF with mild pulmonary hypertension 2. COPD exacerbation: Supplemental oxygen therapy titrate to achieve spo2>=88% given COPDer DuoNEB NEB Prednisone Zithromax 3. T2DM: HgA1c 7.4 Lantus HS Lispro TID AC SSI AC HS Gabapentin Accu Chek AC HS Hypoglycemia protocol Diabetic diet 4. Chronic kidney disease III, with acute kidney injury: Avoid nephrotoxic agents Saline lock with IV diuretics for now CMP daily to trend kidney functions CT abdomen pelvis w/o 5. h/o CAD: [place] 3 oil Metoprolol ER d/c Aspirin given worsening anemia Amlodipine Valsartan 6. Anemia, normochromic normocytic: cbc w/ auto diff daily to trend H/H Stool guaiac positive, external hemorrhoid, 1% hydrocortisone cream topical BID 7. Hypomagnesemia: Mg oxide oral replacement Repeat serum Mg level in the morning 8. Anxiety: Ativan 0.5mg PO q4hr PRN anxiety GI ppx: continue oral PPI from home regimen DVT ppx: SCDs Code status: Full Prognosis: guarded Disposition: Inpatient med surg telemetry; PT OT: PT OT Time Spent With Patient Time: Total time spent is greater than 50% in coordination of care (as documented) at patient's floor/unit and/or counseling patient: Total time spent with greater than 50% in coordination of care (as documented) at patient's floor/unit and/or counseling patient:: 35 - 50 minutes QUALITY VTE Deep Vein Thrombosis/Pulmonary Embolism Present on Admission: No
--- NOTE | 2022-04-15 11:38 | XRay Report ---
HISTORY: Short of breath, follow-up infiltrates findings FINDINGS: There are moderate diffuse alveolar opacities throughout both lungs. Greatest involvement is in the left heart border. There is been improvement on the right side but relatively little change in the left since prior x-ray done on 04/12/22. There is a very small left-sided pleural effusion. Heart size is borderline enlarged. There has been a prior sternotomy. IMPRESSION: Bilateral infiltrates with improvement in the right side. This could be due to pulmonary edema, pneumonia, ARDS or a combination of the above Interpreted and Authenticated by: Danie Schmitt 04/15/22
[2022-04-15] MEDS: LORazepam 0.5 MG TABLET PO PRN ×3 (12:17→21:40)
[2022-04-15] MEDS: INSULIN GLARGINE, HUMAN 1 UNIT/0.01 ML SQ SCH (20:15)
[2022-04-15] MEDS: SENNOSIDES 1 TABLET PO SCH (20:16)
[2022-04-15] MEDS: BUMETANIDE 1 MG/4 ML VIAL IV SCH (20:16)
[2022-04-16] MEDS: IPRATROPIUM/ALBUTEROL 3 ML AMPUL.NEB NEB SCH ×4 (01:02→19:11)
[2022-04-16] MEDS: 0.9 % SODIUM CHLORIDE 10 ML SYRINGE IV SCH ×3 (05:51→21:40)
[2022-04-16 06:37] LABS: ALT/SGPT 41 U/L (<40); AST/SGOT 21 U/L (<32); Albumin 3.1 gm/dL (3.2-5.2); Albumin/Globulin Ratio 0.9 (1.0-2.3); Alkaline Phosphatase 99 U/L (39-117); Bilirubin,Total 0.2 mg/dL (0.1-1.0); Blood Urea Nitrogen 88 mg/dL (8-23); Calcium 9.2 mg/dL (8.6-10.4); Carbon Dioxide 23 mmol/L (22-30); Chloride 104 mmol/L (96-108); Globulin 3.5 gm/dL (2.2-3.7); Glomerular Filtration Rate 20; Glucose 121 mg/dL (70-105); Phosphorous 3.8 mg/dL (2.5-4.5)
[2022-04-16 06:40] LABS: Basophils # (Auto) 0.04 K/mcL (0.00-0.30); Basophils % (Auto) 0.3 % (0.0-2.0); Eosinophils # (Auto) 0 K/mcL (0.00-0.70); Eosinophils % (Auto) 0 % (0.0-7.0); Hematocrit 25.8 % (34.1-44.9); Hemoglobin 7.6 g/dL (11.2-15.7); Lymphocytes # (Auto) 1.45 K/mcL (1.50-4.80); Lymphocytes % (Auto) 11.2 % (15.5-49.0); Mean Cell Volume 88.1 fL (80.0-100.0); Mean Corpuscular HGB Conc 29.5 g/dL (31.0-36.0); Mean Platelet Volume 9.9 fL (7.4-10.4); Monocytes # (Auto) 1.18 K/mcL (0.10-0.90); Monocytes % (Auto) 9.1 % (1.0-12.0); Neutrophils % (Auto) 75.1 % (38.0-78.0); Platelet Count 332 K/mcL (140-440); RBC 2.93 M/mcL (3.59-5.38); Red Cell Distribution Width 16.5 % (11.5-14.5); WBC 12.9 K/mcL (4.5-11.0)
[2022-04-16] MEDS: INSULIN LISPRO 1 UNIT/0.01 ML UNIT SQ SCH ×7 (07:22→21:39)
[2022-04-16] MEDS: predniSONE 20 MG TABLET PO SCH (07:30)
--- NOTE | 2022-04-16 08:47 | Internal Med Progress Note ---
SUBJECTIVE Subjective Patient information: Note initiated : 04/16/22 at 8:40 am Service Date, if different from initiated Date: [] Patient: Jim Butler a 81 y/o F admitted on 04/12/22 for SOB . Chief Complaint: [] Interval history: History of present illness: Ms. Butler is a 81 year old F history of recent COVID in February 2022, CHF, CAD status post CABG x4, type 2 diabetes mellitus, presenting with gradual onset, gradually worsening shortness of breath for 5 days. Patient was supposed to be on chlorthalidone which was stopped it during her last hospitalization in February 2022. Over the past 5 days, she is coming of gradually worsening shortness of breath accompanied by nonproductive cough and respiratory wheezings. She is also complaining of chest pain whenever she coughs. She is also coming of subjective fever and shaking chills. She is also complained of general body weakness. She also noticed bilateral leg swellings. She is sleep on a recliner. She is complaining of exertional dyspnea after 50 feet's. She denies any unintentional weight gain. Vital signs at ED presentation significant for tachypnea with rate of breathing in the mid 20s as well as oxygen desaturating to the 70s on room air. She does not use home oxygen. Labs significant for leukocytosis with WBC 15.4 which appears to be her baseline. Serum lactic acid 1.4. Blood glucose in the 300s range. Anion gap 11. COVID is pending. Chest x-ray showing bilateral pulmonary edema. Patient was placed on supplemental oxygen 4 L/min as well as 5 units of regular insulin and admission request was called. 04/13: There was no major overnight events. Patient is on between 2 to 6 L/min of supplemental oxygen's depending on activities. Fasting sugar 220 this morning. H&H 7.6 and 24.6, respectively which would present a drop relative to yesterday. Urine output: 300ml overnight. Troponin 0.03-->0.07-->0.09. CoVID PCR negative. Echocardiogram showing grade 2 diastolic dysfunctions and mild pulmonary hypertension's. No reported him at emesis or bloody stool. Denies chest pain. Denies abdominal pain. Improving degree of shortness of breath. Denies cough or wheezing. Denies fever or chills. Continue IV Lasix and fluid restrictions for CHF exacerbations. Continue azithromycin and prednisone as well as DuoNeb for COPD exacerbations. We will check troponin this morning. We will also check stool occult blood to rule out GI bleeding. Pending physical therapy and Occupational Therapy evaluations and treatments. 04/14: Afebrile overnight. On 5L/min oxygen. Hemoglobin stable at 7.6. Pending stool occult blood screening. 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 c/o improving degree of shortness of breath. c/o nonproductive cough. Denies wheezing. Denies fever chills or sweating. c/o abdominal distension and right side flank pain, aching. OT: STEFAN OT. PT: pending. Continue Lasix IV and fluid restriction and supplemental oxygen for CHF exacerbation. Continue Prednisone, Zithromax, and DuoNeb for COPD exacerbation. CT abdomen pelvis w/o to rule out intraabdominal pathologies. Pending stool occult blood screening. CMP daily to trend kidney functions and electrolytes. Simethicone PRN gas. 04/15: Between 5-8L/min oxygen depending on activities. Afebrile overnight. Neutral fluid balance. Patient is c/o improving degree of shortness of breath with nonproductive cough and no wheezing. She is coming of anxiety. She is complaining of bilateral leg swellings. Both physical therapist and occupational therapist recommend home health upon hospital discharge. Hemoglobin 7.6-->7.2. No bloody stool or black stool. Denies chest pain or palpitation. Switched diuretics from IV Lasix to Bumex. An event p.o. as needed anxiety. Downgrade to [facility] with telemetry and continuous pulse oximetry. Stool guaiac positive, external hemorrhoid, 1% hydrocortisone cream topical BID 04/16: Between 4-8 L/min oxygen depending on activities. Afebrile overnight. Fluid balance -1027cc over cage shift manager, urine output 250cc over the last 2 hours. Improving degree of shortness of breath. Denies anxiety, the Ativan really helps . Improving degree of bilateral leg swellings. Hemoglobin 7.6-->7.2-->7.6. Serum Creatinine 2.2-->2.1-->2.2. No bloody stool or black stool. Denies chest pain or palpitation. Constitutional Vitals: Vital Signs Temp Pulse Resp BP Pulse Ox 35.8 C L 81 16 131/54 92 04/16/22 00:17 04/16/22 07:21 04/16/22 07:21 04/16/22 04:01 04/16/22 07:17 Period Temp Pulse Resp BP Sys/Calderon Pulse Ox Last 24 Hr 35.8 C-36.3 C 75-89 16-20 108-141/54-98 89-94 Intake and Output 04/15/22 04/16/22 04/16/22 21:59 05:59 13:59 Intake Total 480 320 240 Output Total 901 476 250 Balance -421 -156 -10 Weight 83.28 kg Intake & Output: Intake & Output 04/15/22 04/16/22 04/16/22 21:59 05:59 13:59 Intake Total 480 320 240 Output Total 901 476 250 Balance -421 -156 -10 Weight 83.28 kg Intake: Oral 480 320 240 Output: Void Amount 650 475 250 # of times incontinent of urine 1 1 Urine/Stool Mix 250 Other: Meal Dinner Percent of Meal Consumed 75% Feeding Ability Independent Urine Appearance Clear Clear Clear Urine Color Dark [place] Pale Bright Yellow Urine Odor Normal Normal Stool Size Small Smear Stool Color Brown Brown Stool Consistency Soft Formed # Bowel Movements 1 Head Head exam: Present atraumatic and normal inspection Eye Eye exam: Present normal appearance ENT ENT exam: Present mucous membranes moist, normal exam and normal external ear exam Additional comments: Nasal cannula in place Neck Neck exam: Present normal inspection Respiratory Respiratory exam: Present decreased breath sounds and rhonchi Cardiovascular Cardiovascular exam: Present normal rate and rhythm GI/Abdominal GI/Abdominal exam: Present normal bowel sounds Extremities Exam Extremities exam: Present pedal edema Back Exam Back exam: Present normal inspection Neurological Exam Neurological exam: Present alert and oriented X3 Skin Skin exam: Present intact and warm OBJ DATA Labs CBC & Chem 7: 04/16/22 05:18 04/16/22 05:18 Labs: Abnormal Lab Results 04/16/22 04/16/22 04/15/22 05:18 05:18 05:23 WBC 12.9 H RBC 2.93 L Hgb 7.6 L Hct 25.8 L MCH 25.9 L MCHC 29.5 L RDW 16.5 H Immature Gran % (Auto) 4.3 H Neut % (Auto) Lymph % (Auto) 11.2 L Lymph # (Auto) 1.45 L [place] # (Auto) 1.18 H Immature Gran # 0.55 H Absolute Neutrophils 10.24 H Carbon Dioxide 20 L Anion Gap BUN 88 H 62 H Creatinine 2.2 H 2.1 H Glucose 121 H 228 H AST ALT 41 H Troponin T Albumin 3.1 L 3.0 L Albumin/Globulin Ratio 0.9 L 04/15/22 04/14/22 04/14/22 05:23 05:24 05:24 WBC 12.5 H 19.0 H RBC 2.71 L 2.80 L Hgb 7.2 L 7.6 L Hct 23.6 L 24.4 L MCH MCHC 30.5 L RDW 16.4 H 16.3 H Immature Gran % (Auto) 1.7 H 0.6 H Neut % (Auto) 82.7 H 84.6 H Lymph % (Auto) 7.3 L 6.3 L Lymph # (Auto) 0.91 L 1.19 L [place] # (Auto) 1.02 H 1.60 H Immature Gran # 0.21 H 0.12 H Absolute Neutrophils 10.51 H 16.17 H Carbon Dioxide 19 L Anion Gap 17.0 H BUN 66 H Creatinine 2.2 H Glucose 189 H AST 33 H ALT Troponin T Albumin Albumin/Globulin Ratio 0.9 L 04/13/22 10:38 WBC RBC Hgb Hct MCH MCHC RDW Immature Gran % (Auto) Neut % (Auto) Lymph % (Auto) Lymph # (Auto) [place] # (Auto) Immature Gran # Absolute Neutrophils Carbon Dioxide Anion Gap BUN Creatinine Glucose AST ALT Troponin T 0.12 H* Albumin Albumin/Globulin Ratio Meds: Medications Acetaminophen (Acetaminophen 325 Mg Tablet) 650 mg PO Q6HP PRN; Protocol PRN Reason: Per Pain Protocol/Fever > 101 Last Admin: 04/14/22 09:18 Dose: 650 mg Documented by: Hydrocodone Bitart/Acetaminophen (Hydrocodone/Apap 5/325mg Tablet) 1 tab PO DAILYP PRN PRN Reason: Pain Last Admin: 04/14/22 04:32 Dose: 1 tab Documented by: Albuterol Sulfate (Albuterol Sulfate 200 Puff Inhaler) 2 puff INH Q6H PRN PRN Reason: shortness of breath or wheezing Albuterol Sulfate (Albuterol Sulfate 2.5 Mg/3 Ml Nebulizer) 2.5 mg NEB Q2HP PRN PRN Reason: Shortness Of Breath Albuterol/Ipratropium (Ipratropium/Albuterol 3 Ml Ampul.Neb) 3 ml NEB Q6HRT [facility] Last Admin: 04/16/22 07:17 Dose: 3 ml Documented by: Amlodipine Besylate (Amlodipine 10 Mg Tablet) 10 mg PO QDAY [facility] Last Admin: 04/15/22 08:29 Dose: 10 mg Documented by: Azithromycin (Azithromycin 250 Mg Tablet) 250 mg PO DAILY [facility]; Protocol Stop: 04/16/22 09:01 Last Admin: 04/15/22 08:29 Dose: 250 mg Documented by: Bumetanide (Bumetanide 1 Mg/4 Ml Vial) 2 mg IV BID [facility] Stop: 04/16/22 09:01 Last Admin: 04/15/22 20:16 Dose: 2 mg Documented by: Dextrose (Dextrose 50% 50 Ml Vial) 0 ml IV UD PRN PRN Reason: Per Sliding Scale Diagnostic Test (Pha) (Accu-Chek 1 Each Strip) 1 each FS [facility] Last Admin: 04/16/22 07:22 Dose: 1 each Documented by: Docusate Sodium (Docusate Sodium 100 Mg Capsule) 100 mg PO BID [facility] Last Admin: 04/15/22 20:16 Dose: 100 mg Documented by: Gabapentin (Gabapentin 300 Mg Capsule) 300 mg PO QID [facility] Last Admin: 04/15/22 20:16 Dose: 300 mg Documented by: Glucose (Dextrose 31 Gm Oral.Susp) 15 gm PO PRN PRN PRN Reason: Hypoglycemia Guaifenesin (Guaifenesin/Dextromethorphan Oral María) 10 ml PO Q4HP PRN PRN Reason: Cough Insulin Glargine (Insulin Glargine, Human 1 Unit/0.01 Ml) 56 unit SQ HS [facility] Last Admin: 04/15/22 20:15 Dose: 56 units Documented by: Insulin Human Lispro (Insulin Lispro 1 Unit/0.01 Ml Unit) 0 unit SQ [facility]; Protocol Last Admin: 04/16/22 07:22 Dose: Not Given Documented by: Insulin Human Lispro (Insulin Lispro 1 Unit/0.01 Ml Unit) 20 unit SQ AC [facility] Last Admin: 04/16/22 07:30 Dose: 20 unit Documented by: Lorazepam (Lorazepam 0.5 Mg Tablet) 1 mg PO Q4HP PRN PRN Reason: ANXIETY/SEDATION Last Admin: 04/15/22 21:40 Dose: 1 mg Documented by: Losartan Potassium (Losartan 50 Mg Tablet) 50 mg PO DAILY [facility] Last Admin: 04/15/22 08:29 Dose: 50 mg Documented by: Magnesium Oxide (Magnesium Oxide 400 Mg Tablet) 800 mg PO DAILY [facility] Last Admin: 04/15/22 08:29 Dose: 800 mg Documented by: Metoprolol Succinate (Metoprolol Succinate 50 Mg Tab.Xl.24h) 100 mg PO QDAY [facility] Last Admin: 04/15/22 08:28 Dose: 100 mg Documented by: Morphine Sulfate (Morphine 4 Mg/Ml Vial) 4 mg IV Q4HP PRN; Protocol PRN Reason: Per Pain Protocol Nitroglycerin (Nitroglycerin 0.4 Mg Tab.Subl) 0.4 mg SL Q5M PRN PRN Reason: Chest Pain Omeprazole (Omeprazole 20 Mg Capsule) 20 mg PO QDAY [facility] Last Admin: 04/15/22 08:29 Dose: 20 mg Documented by: Ondansetron HCl (Ondansetron 4 Mg/2 Ml Vial) 4 mg IV Q6HP PRN PRN Reason: Nausea And Vomiting [place] 1-Mgp-Uzf-Fish Oil-Krill [Megared Advanced 1 dose PO DAILY [facility] Last Admin: 04/15/22 08:30 Dose: Not Given Documented by: Prednisone (Prednisone 20 Mg Tablet) [address] [facility] Last Admin: 04/16/22 07:30 Dose: 40 mg Documented by: Senna (Sennosides 1 Tablet) 2 tab PO [facility] Last Admin: 04/15/22 20:16 Dose: 2 tab Documented by: Simethicone (Simethicone 80 Mg Tab.Chew) 80 mg CHEWED QIDP PRN PRN Reason: Dyspepsia Sodium Chloride (0.9 % Sodium Chloride 10 Ml Syringe) 10 ml IV Q8 [facility] Last Admin: 04/16/22 05:51 Dose: 10 ml Documented by: Trazodone HCl (Trazodone Hcl 50 Mg Tablet) 25 mg PO HSP PRN PRN Reason: Insomnia A/P Assessment and plan (1) CAD (coronary artery disease): Status: Acute (2) DM2 (diabetes mellitus, type 2): Status: Acute (3) Anemia, normocytic normochromic: Status: Acute (4) CHF exacerbation: Status: Acute (5) COPD exacerbation: Status: Acute (6) Chronic kidney disease (CKD) stage G3a/A1, moderately decreased glomerular filtration rate (GFR) between 45-59 mL/min/1.73 square meter and albuminuria creatinine ratio less than 30 mg/g: Status: Acute (7) Diastolic CHF: Status: Acute (8) Pulmonary hypertension: Status: Acute (9) Hypomagnesemia: Status: Acute (10) Anxiety: Status: Acute Narrative A/P Narrative: Assessment and Plans: 1. Grade II diastolic CHF exacerbation with mild pulmonary hypertension: Inpatient med surg telemetry Strict intake and output measurement Daily weigh 2L/day fluid restriction Bumex 2mg IV BID Supplemental oxygen therapy titrate to achieve spo2>=88% given [facility]Der Physical therapy: HH PT Occupational therapy: HH OT 2D echocardiogram showing: Grade II diastolic CHF with mild pulmonary hypertension 2. COPD exacerbation: Supplemental oxygen therapy titrate to achieve spo2>=88% given COPDer DuoNEB NEB Prednisone day 02/17 Zithromax day 02/17 3. T2DM: HgA1c 7.4 Lantus HS Lispro TID AC SSI AC HS Gabapentin Accu Chek AC HS Hypoglycemia protocol Diabetic diet 4. Chronic kidney disease III, with acute kidney injury: Avoid nephrotoxic agents Saline lock with IV diuretics for now CMP daily to trend kidney functions CT abdomen pelvis w/o 5. h/o CAD: [place] 3 oil Metoprolol ER d/c Aspirin given worsening anemia Amlodipine Valsartan 6. Anemia, normochromic normocytic: cbc w/ auto diff daily to trend H/H Stool guaiac positive, external hemorrhoid, 1% hydrocortisone cream topical BID 7. Hypomagnesemia: Mg oxide oral replacement Repeat serum Mg level in the morning 8. Anxiety: Ativan 1mg PO q4hr PRN anxiety GI ppx: continue oral PPI from home regimen DVT ppx: SCDs Code status: Full Prognosis: guarded Disposition: Inpatient med surg telemetry; PT OT: HH PT OT Time Spent With Patient Time: Total time spent is greater than 50% in coordination of care (as documented) at patient's floor/unit and/or counseling patient: Total time spent with greater than 50% in coordination of care (as documented) at patient's floor/unit and/or counseling patient:: 35 - 50 minutes QUALITY VTE Deep Vein Thrombosis/Pulmonary Embolism Present on Admission: No
[2022-04-16] MEDS: BUMETANIDE 1 MG/4 ML VIAL IV SCH (09:16)
[2022-04-16] MEDS: GABAPENTIN 300 MG CAPSULE PO SCH ×4 (09:17→21:40)
[2022-04-16] MEDS: LOSARTAN 50 MG TABLET PO SCH (09:17)
[2022-04-16] MEDS: METOPROLOL SUCCINATE 50 MG TAB.XL.24H PO SCH (09:17)
[2022-04-16] MEDS: amLODIPine 10 MG TABLET PO SCH (09:17)
[2022-04-16] MEDS: AZITHROMYCIN 250 MG TABLET PO SCH (09:17)
[2022-04-16] MEDS: MAGNESIUM OXIDE 400 MG TABLET PO SCH (09:17)
[2022-04-16] MEDS: OMEPRAZOLE 20 MG CAPSULE PO SCH (09:17)
[2022-04-16] MEDS: DOCUSATE SODIUM 100 MG CAPSULE PO SCH ×2 (09:17→20:40)
[2022-04-16] MEDS: LORazepam 0.5 MG TABLET PO PRN ×2 (09:18→19:43)
[2022-04-16] MEDS: [UNRECOGNIZED DRUG - OTHER] PO SCH (10:47)
[2022-04-16] MEDS: SENNOSIDES 1 TABLET PO SCH (20:40)
[2022-04-16] MEDS: INSULIN GLARGINE, HUMAN 1 UNIT/0.01 ML SQ SCH (21:39)
[2022-04-17] MEDS: IPRATROPIUM/ALBUTEROL 3 ML AMPUL.NEB NEB SCH ×4 (02:41→19:25)
[2022-04-17] MEDS: 0.9 % SODIUM CHLORIDE 10 ML SYRINGE IV SCH ×3 (05:48→21:27)
[2022-04-17 06:46] LABS: Basophils # (Auto) 0.02 K/mcL (0.00-0.30); Basophils % (Auto) 0.2 % (0.0-2.0); Eosinophils # (Auto) 0.02 K/mcL (0.00-0.70); Eosinophils % (Auto) 0.2 % (0.0-7.0); Hematocrit 25.4 % (34.1-44.9); Hemoglobin 7.8 g/dL (11.2-15.7); Lymphocytes # (Auto) 1.96 K/mcL (1.50-4.80); Mean Cell Volume 87.6 fL (80.0-100.0); Mean Corpuscular HGB Conc 30.7 g/dL (31.0-36.0); Mean Platelet Volume 9.7 fL (7.4-10.4); Monocytes # (Auto) 1.34 K/mcL (0.10-0.90); Monocytes % (Auto) 10.3 % (1.0-12.0); Neutrophils % (Auto) 67.7 % (38.0-78.0); Platelet Count 371 K/mcL (140-440)
[2022-04-17 06:57] LABS: ALT/SGPT 36 U/L (<40); AST/SGOT 18 U/L (<32); Albumin 3.3 gm/dL (3.2-5.2); Alkaline Phosphatase 97 U/L (39-117); Bilirubin,Total 0.2 mg/dL (0.1-1.0); Blood Urea Nitrogen 90 mg/dL (8-23); Calcium 9.3 mg/dL (8.6-10.4); Carbon Dioxide 23 mmol/L (22-30); Chloride 104 mmol/L (96-108); Globulin 3.2 gm/dL (2.2-3.7); Glomerular Filtration Rate 20; Glucose 105 mg/dL (70-105); Phosphorous 4.1 mg/dL (2.5-4.5)
[2022-04-17] MEDS: INSULIN LISPRO 1 UNIT/0.01 ML UNIT SQ SCH ×7 (07:44→21:26)
[2022-04-17] MEDS: OMEPRAZOLE 20 MG CAPSULE PO SCH (08:02)
[2022-04-17] MEDS: LOSARTAN 50 MG TABLET PO SCH (08:02)
[2022-04-17] MEDS: amLODIPine 10 MG TABLET PO SCH (08:02)
[2022-04-17] MEDS: METOPROLOL SUCCINATE 50 MG TAB.XL.24H PO SCH (08:02)
[2022-04-17] MEDS: GABAPENTIN 300 MG CAPSULE PO SCH ×4 (08:02→21:15)
[2022-04-17] MEDS: predniSONE 20 MG TABLET PO SCH (08:02)
[2022-04-17] MEDS: MAGNESIUM OXIDE 400 MG TABLET PO SCH (08:02)
[2022-04-17] MEDS: DOCUSATE SODIUM 100 MG CAPSULE PO SCH ×2 (08:04→21:15)
[2022-04-17] MEDS: LORazepam 0.5 MG TABLET PO PRN ×2 (10:21→21:27)
[2022-04-17] MEDS: [UNRECOGNIZED DRUG - OTHER] PO SCH (12:16)
--- NOTE | 2022-04-17 14:01 | Internal Med Progress Note ---
SUBJECTIVE Subjective Patient information: Note initiated : 04/17/22 at 1:59 pm Service Date, if different from initiated Date: [] Patient: Jim Butler a 81 y/o F admitted on 04/12/22 for SOB . Chief Complaint: [] Interval history: History of present illness: Ms. Butler is a 81 year old F history of recent COVID in February 2022, CHF, CAD status post CABG x4, type 2 diabetes mellitus, presenting with gradual onset, gradually worsening shortness of breath for 5 days. Patient was supposed to be on chlorthalidone which was stopped it during her last hospitalization in February 2022. Over the past 5 days, she is coming of gradually worsening shortness of breath accompanied by nonproductive cough and respiratory wheezings. She is also complaining of chest pain whenever she coughs. She is also coming of subjective fever and shaking chills. She is also complained of general body weakness. She also noticed bilateral leg swellings. She is sleep on a recliner. She is complaining of exertional dyspnea after 50 feet's. She denies any unintentional weight gain. Vital signs at ED presentation significant for tachypnea with rate of breathing in the mid 20s as well as oxygen desaturating to the 70s on room air. She does not use home oxygen. Labs significant for leukocytosis with WBC 15.4 which appears to be her baseline. Serum lactic acid 1.4. Blood glucose in the 300s range. Anion gap 11. COVID is pending. Chest x-ray showing bilateral pulmonary edema. Patient was placed on supplemental oxygen 4 L/min as well as 5 units of regular insulin and admission request was called. 04/13: There was no major overnight events. Patient is on between 2 to 6 L/min of supplemental oxygen's depending on activities. Fasting sugar 220 this morning. H&H 7.6 and 24.6, respectively which would present a drop relative to yesterday. Urine output: 300ml overnight. Troponin 0.03-->0.07-->0.09. CoVID PCR negative. Echocardiogram showing grade 2 diastolic dysfunctions and mild pulmonary hypertension's. No reported him at emesis or bloody stool. Denies chest pain. Denies abdominal pain. Improving degree of shortness of breath. Denies cough or wheezing. Denies fever or chills. Continue IV Lasix and fluid restrictions for CHF exacerbations. Continue azithromycin and prednisone as well as DuoNeb for COPD exacerbations. We will check troponin this morning. We will also check stool occult blood to rule out GI bleeding. Pending physical therapy and Occupational Therapy evaluations and treatments. 04/14: Afebrile overnight. On 5L/min oxygen. Hemoglobin stable at 7.6. Pending stool occult blood screening. 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 c/o improving degree of shortness of breath. c/o nonproductive cough. Denies wheezing. Denies fever chills or sweating. c/o abdominal distension and right side flank pain, aching. OT: STEFAN OT. PT: pending. Continue Lasix IV and fluid restriction and supplemental oxygen for CHF exacerbation. Continue Prednisone, Zithromax, and DuoNeb for COPD exacerbation. CT abdomen pelvis w/o to rule out intraabdominal pathologies. Pending stool occult blood screening. CMP daily to trend kidney functions and electrolytes. Simethicone PRN gas. 04/15: Between 5-8L/min oxygen depending on activities. Afebrile overnight. Neutral fluid balance. Patient is c/o improving degree of shortness of breath with nonproductive cough and no wheezing. She is coming of anxiety. She is complaining of bilateral leg swellings. Both physical therapist and occupational therapist recommend home health upon hospital discharge. Hemoglobin 7.6-->7.2. No bloody stool or black stool. Denies chest pain or palpitation. Switched diuretics from IV Lasix to Bumex. An event p.o. as needed anxiety. Downgrade to [facility] with telemetry and continuous pulse oximetry. Stool guaiac positive, external hemorrhoid, 1% hydrocortisone cream topical BID 04/16: Between 4-8 L/min oxygen depending on activities. Afebrile overnight. 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 Improving degree of shortness of breath. Denies anxiety, the Ativan really helps . Improving degree of bilateral leg swellings. Hemoglobin 7.6-->7.2-->7.6. Serum Creatinine 2.2-->2.1-->2.2. No bloody stool or black stool. Denies chest pain or palpitation. 04/17: Between 0 to 1 L/min oxygen depending on activities. Afebrile overnight. Fluid balance around -1100 cc overnight. Improving degree of shortness of breath. Denies anxiety. Improving degree of bilateral leg swellings. H&H as well as kidney functions remained stable. No bloody stool or black stool. Denies chest pain or palpitation. Finished 5-day course of prednisone and azithromycin for COPD exacerbations. Continue IV Bumex and will convert to oral diuretics at time of discharge. Constitutional Vitals: Vital Signs Temp Pulse Resp BP Pulse Ox 36.8 C 74 20 146/68 96 04/17/22 12:13 04/17/22 13:10 04/17/22 13:10 04/17/22 12:13 04/17/22 13:10 Period Temp Pulse Resp BP Sys/Calderon Pulse Ox Last 24 Hr 36.1 C-36.9 C 70-89 16-24 124-159/67-78 93-98 Intake and Output 04/16/22 04/17/22 04/17/22 21:59 05:59 13:59 Intake Total 200 200 250 Output Total 275 550 Balance -75 -350 250 Weight 83.688 kg Intake & Output: Intake & Output 04/16/22 04/17/22 04/17/22 21:59 05:59 13:59 Intake Total 200 200 250 Output Total 275 550 Balance -75 -350 250 Weight 83.688 kg Intake: Oral 200 200 250 Output: Void Amount 275 550 Other: Meal Lunch Percent of Meal Consumed 100% Urine Appearance Clear Clear Urine Color Pale Pale Urine Odor Strong Stool Size Moderate Stool Color Brown Stool Consistency Soft # Bowel Movements 1 General appearance: average body habitus, cooperative and no acute distress Head Head exam: Present atraumatic and normal inspection Eye Eye exam: Present normal appearance ENT ENT exam: Present mucous membranes moist, normal exam and normal external ear exam Additional comments: Nasal cannula in place Neck Neck exam: Present normal inspection Respiratory Respiratory exam: Present rhonchi Cardiovascular Cardiovascular exam: Present normal rate and rhythm GI/Abdominal GI/Abdominal exam: Present normal bowel sounds Extremities Exam Extremities exam: Present full ROM and pedal edema Back Exam Back exam: Present normal inspection Neurological Exam Neurological exam: Present alert and oriented X3 Skin Skin exam: Present intact and warm OBJ DATA Labs CBC & Chem 7: 04/17/22 05:17 04/17/22 05:17 Labs: Abnormal Lab Results 04/17/22 04/17/22 04/16/22 05:17 05:17 05:18 WBC 13.0 H RBC 2.90 L Hgb 7.8 L Hct 25.4 L MCH MCHC 30.7 L RDW 17.0 H Immature Gran % (Auto) 6.6 H Neut % (Auto) Lymph % (Auto) 15.0 L Lymph # (Auto) [place] # (Auto) 1.34 H Immature Gran # 0.86 H Absolute Neutrophils 9.70 H Carbon Dioxide BUN 90 H 88 H Creatinine 2.2 H 2.2 H Glucose 121 H ALT 41 H Albumin 3.1 L Albumin/Globulin Ratio 0.9 L 04/16/22 04/15/22 04/15/22 05:18 05:23 05:23 WBC 12.9 H 12.5 H RBC 2.93 L 2.71 L Hgb 7.6 L 7.2 L Hct 25.8 L 23.6 L MCH 25.9 L MCHC 29.5 L 30.5 L RDW 16.5 H 16.4 H Immature Gran % (Auto) 4.3 H 1.7 H Neut % (Auto) 82.7 H Lymph % (Auto) 11.2 L 7.3 L Lymph # (Auto) 1.45 L 0.91 L [place] # (Auto) 1.18 H 1.02 H Immature Gran # 0.55 H 0.21 H Absolute Neutrophils 10.24 H 10.51 H Carbon Dioxide 20 L BUN 62 H Creatinine 2.1 H Glucose 228 H ALT Albumin 3.0 L Albumin/Globulin Ratio Meds: Medications Acetaminophen (Acetaminophen 325 Mg Tablet) 650 mg PO Q6HP PRN; Protocol PRN Reason: Per Pain Protocol/Fever > 101 Last Admin: 04/14/22 09:18 Dose: 650 mg Documented by: Hydrocodone Bitart/Acetaminophen (Hydrocodone/Apap 5/325mg Tablet) 1 tab PO DAILYP PRN PRN Reason: Pain Last Admin: 04/14/22 04:32 Dose: 1 tab Documented by: Albuterol Sulfate (Albuterol Sulfate 200 Puff Inhaler) 2 puff INH Q6H PRN PRN Reason: shortness of breath or wheezing Albuterol Sulfate (Albuterol Sulfate 2.5 Mg/3 Ml Nebulizer) 2.5 mg NEB Q2HP PRN PRN Reason: Shortness Of Breath Albuterol/Ipratropium (Ipratropium/Albuterol 3 Ml Ampul.Neb) 3 ml NEB Q6HRT [facility] Last Admin: 04/17/22 13:10 Dose: 3 ml Documented by: Amlodipine Besylate (Amlodipine 10 Mg Tablet) 10 mg PO QDAY [facility] Last Admin: 04/17/22 08:02 Dose: 10 mg Documented by: Dextrose (Dextrose 50% 50 Ml Vial) 0 ml IV UD PRN PRN Reason: Per Sliding Scale Diagnostic Test (Pha) (Accu-Chek 1 Each Strip) 1 each FS [facility] Last Admin: 04/17/22 13:26 Dose: 1 each Documented by: Docusate Sodium (Docusate Sodium 100 Mg Capsule) 100 mg PO BID [facility] Last Admin: 04/17/22 08:04 Dose: Not Given Documented by: Gabapentin (Gabapentin 300 Mg Capsule) 300 mg PO QID [facility] Last Admin: 04/17/22 13:23 Dose: 300 mg Documented by: Glucose (Dextrose 31 Gm Oral.Susp) 15 gm PO PRN PRN PRN Reason: Hypoglycemia Guaifenesin (Guaifenesin/Dextromethorphan Oral María) 10 ml PO Q4HP PRN PRN Reason: Cough Insulin Glargine (Insulin Glargine, Human 1 Unit/0.01 Ml) 56 unit SQ [facility] Last Admin: 04/16/22 21:39 Dose: 56 units Documented by: Insulin Human Lispro (Insulin Lispro 1 Unit/0.01 Ml Unit) 0 unit SQ [facility]; Protocol Last Admin: 04/17/22 12:16 Dose: Not Given Documented by: Insulin Human Lispro (Insulin Lispro 1 Unit/0.01 Ml Unit) 20 unit SQ AC [facility] Last Admin: 04/17/22 12:16 Dose: Not Given Documented by: Lorazepam (Lorazepam 0.5 Mg Tablet) 1 mg PO Q4HP PRN PRN Reason: ANXIETY/SEDATION Last Admin: 04/17/22 10:21 Dose: 1 mg Documented by: Losartan Potassium (Losartan 50 Mg Tablet) 50 mg PO DAILY [facility] Last Admin: 04/17/22 08:02 Dose: 50 mg Documented by: Magnesium Oxide (Magnesium Oxide 400 Mg Tablet) 800 mg PO DAILY [facility] Last Admin: 04/17/22 08:02 Dose: 800 mg Documented by: Metoprolol Succinate (Metoprolol Succinate 50 Mg Tab.Xl.24h) 100 mg PO QDAY [facility] Last Admin: 04/17/22 08:02 Dose: 100 mg Documented by: Morphine Sulfate (Morphine 4 Mg/Ml Vial) 4 mg IV Q4HP PRN; Protocol PRN Reason: Per Pain Protocol Nitroglycerin (Nitroglycerin 0.4 Mg Tab.Subl) 0.4 mg SL Q5M PRN PRN Reason: Chest Pain Omeprazole (Omeprazole 20 Mg Capsule) 20 mg PO QDAY [facility] Last Admin: 04/17/22 08:02 Dose: 20 mg Documented by: Ondansetron HCl (Ondansetron 4 Mg/2 Ml Vial) 4 mg IV Q6HP PRN PRN Reason: Nausea And Vomiting [place] 2-Xym-Eld-Fish Oil-Krill [Megared Advanced 1 dose PO DAILY [facility] Last Admin: 04/17/22 12:16 Dose: Not Given Documented by: Prednisone (Prednisone 20 Mg Tablet) 40 mg PO [facility] Last Admin: 04/17/22 08:02 Dose: 40 mg Documented by: Senna (Sennosides 1 Tablet) 2 tab PO [facility] Last Admin: 04/16/22 20:40 Dose: Not Given Documented by: Simethicone (Simethicone 80 Mg Tab.Chew) 80 mg CHEWED QIDP PRN PRN Reason: Dyspepsia Sodium Chloride (0.9 % Sodium Chloride 10 Ml Syringe) 10 ml IV Q8 [facility] Last Admin: 04/17/22 13:23 Dose: 10 ml Documented by: Trazodone HCl (Trazodone Hcl 50 Mg Tablet) 25 mg PO HSP PRN PRN Reason: Insomnia A/P Assessment and plan (1) CAD (coronary artery disease): Status: Acute (2) DM2 (diabetes mellitus, type 2): Status: Acute (3) Anemia, normocytic normochromic: Status: Acute (4) CHF exacerbation: Status: Acute (5) COPD exacerbation: Status: Acute (6) Chronic kidney disease (CKD) stage G3a/A1, moderately decreased glomerular filtration rate (GFR) between 45-59 mL/min/1.73 square meter and albuminuria creatinine ratio less than 30 mg/g: Status: Acute (7) Diastolic CHF: Status: Acute (8) Pulmonary hypertension: Status: Acute (9) Hypomagnesemia: Status: Acute (10) Anxiety: Status: Acute Narrative A/P Narrative: Assessment and Plans: 1. Grade II diastolic CHF exacerbation with mild pulmonary hypertension: Inpatient med surg telemetry Strict intake and output measurement Daily weigh 2L/day fluid restriction Bumex 2mg IV BID Supplemental oxygen therapy titrate to achieve spo2>=88% given COPDer Physical therapy: HH PT Occupational therapy: HH OT 2D echocardiogram showing: Grade II diastolic CHF with mild pulmonary hypertension 2. COPD exacerbation: Supplemental oxygen therapy titrate to achieve spo2>=88% given COPDer DuoNEB NEB Prednisone day 02/17 Zithromax day 02/17 3. T2DM: HgA1c 7.4 Lantus HS Lispro TID AC SSI AC HS Gabapentin Accu Chek AC HS Hypoglycemia protocol Diabetic diet 4. Chronic kidney disease III, with acute kidney injury: Avoid nephrotoxic agents Saline lock with IV diuretics for now CMP daily to trend kidney functions CT abdomen pelvis w/o 5. h/o CAD: [place] 3 oil Metoprolol ER d/c Aspirin given worsening anemia Amlodipine Valsartan 6. Anemia, normochromic normocytic: cbc w/ auto diff daily to trend H/H Stool guaiac positive, external hemorrhoid, 1% hydrocortisone cream topical BID 7. Hypomagnesemia: Mg oxide oral replacement Repeat serum Mg level in the morning 8. Anxiety: Ativan 1mg PO q4hr PRN anxiety GI ppx: continue oral PPI from home regimen DVT ppx: SCDs Code status: Full Prognosis: guarded Disposition: Inpatient med surg telemetry; PT OT: HH PT OT Time Spent With Patient Time: Total time spent is greater than 50% in coordination of care (as documented) at patient's floor/unit and/or counseling patient: Total time spent with greater than 50% in coordination of care (as documented) at patient's floor/unit and/or counseling patient:: 35 - 50 minutes QUALITY VTE Deep Vein Thrombosis/Pulmonary Embolism Present on Admission: No
[2022-04-17] MEDS: BUMETANIDE 1 MG/4 ML VIAL IV SCH (21:15)
[2022-04-17] MEDS: SENNOSIDES 1 TABLET PO SCH (21:15)
[2022-04-17] MEDS: INSULIN GLARGINE, HUMAN 1 UNIT/0.01 ML SQ SCH (21:26)
[2022-04-18] MEDS: IPRATROPIUM/ALBUTEROL 3 ML AMPUL.NEB NEB SCH ×3 (01:54→13:07)
[2022-04-18] MEDS: 0.9 % SODIUM CHLORIDE 10 ML SYRINGE IV SCH (05:42)
[2022-04-18 06:14] LABS: Basophils # (Auto) 0.03 K/mcL (0.00-0.30); Basophils % (Auto) 0.2 % (0.0-2.0); Eosinophils # (Auto) 0.03 K/mcL (0.00-0.70); Eosinophils % (Auto) 0.2 % (0.0-7.0); Hematocrit 26.3 % (34.1-44.9); Lymphocytes # (Auto) 1.63 K/mcL (1.50-4.80); Lymphocytes % (Auto) 12.1 % (15.5-49.0); Mean Corpuscular HGB Conc 30.4 g/dL (31.0-36.0); Mean Platelet Volume 9.7 fL (7.4-10.4); Monocytes % (Auto) 8.1 % (1.0-12.0); Neutrophils % (Auto) 72.4 % (38.0-78.0); Platelet Count 386 K/mcL (140-440); RBC 2.99 M/mcL (3.59-5.38); Red Cell Distribution Width 16.9 % (11.5-14.5); WBC 13.5 K/mcL (4.5-11.0)
[2022-04-18 06:40] LABS: ALT/SGPT 36 U/L (<40); AST/SGOT 19 U/L (<32); Albumin 3.1 gm/dL (3.2-5.2); Albumin/Globulin Ratio 0.9 (1.0-2.3); Alkaline Phosphatase 102 U/L (39-117); Bilirubin,Total 0.2 mg/dL (0.1-1.0); Blood Urea Nitrogen 84 mg/dL (8-23); Calcium 9.3 mg/dL (8.6-10.4); Carbon Dioxide 26 mmol/L (22-30); Chloride 103 mmol/L (96-108); Globulin 3.5 gm/dL (2.2-3.7); Glomerular Filtration Rate 21; Glucose 179 mg/dL (70-105)
[2022-04-18] MEDS: INSULIN LISPRO 1 UNIT/0.01 ML UNIT SQ SCH ×4 (07:47→12:04)
[2022-04-18] MEDS: LOSARTAN 50 MG TABLET PO SCH (08:36)
[2022-04-18] MEDS: BUMETANIDE 1 MG/4 ML VIAL IV SCH (08:36)
[2022-04-18] MEDS: DOCUSATE SODIUM 100 MG CAPSULE PO SCH (08:36)
[2022-04-18] MEDS: [UNRECOGNIZED DRUG - OTHER] PO SCH (08:37)
[2022-04-18] MEDS: GABAPENTIN 300 MG CAPSULE PO SCH ×2 (08:37→12:55)
[2022-04-18] MEDS: amLODIPine 10 MG TABLET PO SCH (08:37)
[2022-04-18] MEDS: MAGNESIUM OXIDE 400 MG TABLET PO SCH (08:37)
[2022-04-18] MEDS: OMEPRAZOLE 20 MG CAPSULE PO SCH (08:38)
[2022-04-18] MEDS: METOPROLOL SUCCINATE 50 MG TAB.XL.24H PO SCH (08:38)
[2022-04-18] MEDS ORDERED: VITAMIN D3 25 MCG TABLET PO SCH (09:00)
--- NOTE | 2022-04-18 09:59 | Discharge Summary ---
Discharge Provider Provider IMPORTANT FOLLOW-UP INFORMATION FOR PCP: Patient information: Note initiated : 04/18/22 at 9:55 am Service Date, if different from initiated Date: [] Patient: Jim Butler 81 y/o F admitted on 04/12/22 for SOB . Chief Complaint: [] Date of admission: 04/12/22 09:17 Discharge date: 04/18/22 Primary care physician: Bar Catalan Attending physician on admission: Maurice Schmitz Consults: 04/12/22 Consult to Physician [CONS] Stat Comment: Consulting Provider: Maurice Schmitz Reason For Exam: Physician to Consult Attending physician on discharge: Maurice Schmitz COURSE Hospital Course Hospital course: History of present illness: Ms. Butler is a 81 year old F history of recent COVID in February 2022, CHF, CAD status post CABG x4, type 2 diabetes mellitus, presenting with gradual onset, gradually worsening shortness of breath for 5 days. Patient was supposed to be on chlorthalidone which was stopped it during her last hospitalization in February 2022. Over the past 5 days, she is coming of gradually worsening shortness of breath accompanied by nonproductive cough and respiratory wheezings. She is also complaining of chest pain whenever she coughs. She is also coming of subjective fever and shaking chills. She is also complained of general body weakness. She also noticed bilateral leg swellings. She is sleep on a recliner. She is complaining of exertional dyspnea after 50 feet's. She denies any unintentional weight gain. Vital signs at ED presentation significant for tachypnea with rate of breathing in the mid 20s as well as oxygen desaturating to the 70s on room air. She does not use home oxygen. Labs significant for leukocytosis with WBC 15.4 which appears to be her baseline. Serum lactic acid 1.4. Blood glucose in the 300s range. Anion gap 11. COVID is pending. Chest x-ray showing bilateral pulmonary edema. Patient was placed on supplemental oxygen 4 L/min as well as 5 units of regular insulin and admission request was called. 04/13: There was no major overnight events. Patient is on between 2 to 6 L/min of supplemental oxygen's depending on activities. Fasting sugar 220 this morning. H&H 7.6 and 24.6, respectively which would present a drop relative to yesterday. Urine output: 300ml overnight. Troponin 0.03-->0.07-->0.09. CoVID PCR negative. Echocardiogram showing grade 2 diastolic dysfunctions and mild pulmonary hypertension's. No reported him at emesis or bloody stool. Denies chest pain. Denies abdominal pain. Improving degree of shortness of breath. Denies cough or wheezing. Denies fever or chills. Continue IV Lasix and fluid restrictions for CHF exacerbations. Continue azithromycin and prednisone as well as DuoNeb for COPD exacerbations. We will check troponin this morning. We will also check stool occult blood to rule out GI bleeding. Pending physical therapy and Occupational Therapy evaluations and treatments. 04/14: Afebrile overnight. On 5L/min oxygen. Hemoglobin stable at 7.6. Pending stool occult blood screening. 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 c/o improving degree of shortness of breath. c/o nonproductive cough. Denies wheezing. Denies fever chills or sweating. c/o abdominal distension and right side flank pain, aching. OT: OT. PT: pending. Continue Lasix IV and fluid restriction and supplemental oxygen for CHF exacerbation. Continue Prednisone, Zithromax, and DuoNeb for COPD exacerbation. CT abdomen pelvis w/o to rule out intraabdominal pathologies. Pending stool occult blood screening. CMP daily to trend kidney functions and electrolytes. Simethicone PRN gas. 04/15: Between 5-8L/min oxygen depending on activities. Afebrile overnight. Neutral fluid balance. Patient is c/o improving degree of shortness of breath with nonproductive cough and no wheezing. She is coming of anxiety. She is complaining of bilateral leg swellings. Both physical therapist and occupational therapist recommend home health upon hospital discharge. Hemoglobin 7.6-->7.2. No bloody stool or black stool. Denies chest pain or palpitation. Switched diuretics from IV Lasix to Bumex. An event p.o. as needed anxiety. Downgrade to MedSurg with telemetry and continuous pulse oximetry. Stool guaiac positive, external hemorrhoid, 1% hydrocortisone cream topical BID 04/16: Between 4-8 L/min oxygen depending on activities. Afebrile overnight. 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 Improving degree of shortness of breath. Denies anxiety, the Ativan really helps. Improving degree of bilateral leg swellings. Hemoglobin 7.6-->7.2-->7.6. Serum Creatinine 2.2-->2.1-->2.2. No bloody stool or black stool. Denies chest pain or palpitation. 04/17: Between 0 to 1 L/min oxygen depending on activities. Afebrile overnight. Fluid balance around -1100 cc overnight. Improving degree of shortness of breath. Denies anxiety. Improving degree of bilateral leg swellings. H&H as well as kidney functions remained stable. No bloody stool or black stool. Denies chest pain or palpitation. Finished 5-day course of prednisone and azithromycin for COPD exacerbations. Continue IV Bumex and will convert to oral diuretics at time of discharge. 04/18: Reached clinical stability, decision made to send patient home with home health physical therapy and Occupational Therapy. Prescription sent to pharmacy. Instruction to follow-up with PCP in 1 week given to the patient. All questions were answered prior to patient being physically discharged. Discharge diagnosis: CHF exacerbation; COPD exacerbation Time Spent with Patient Time attestation: Total time spent providing and/or coordinating discharge services: Time spent: Less than 30 minutes EXAM Constitutional Vitals: Temp Pulse Resp BP Pulse Ox 36.3 C 72 17 156/71 95 04/18/22 07:31 04/18/22 08:00 04/18/22 08:00 04/18/22 07:31 04/18/22 08:00 General appearance: cooperative and no acute distress Head Head exam: Present atraumatic and normocephalic Eye Eye exam: Present EOMI and PERRL ENT ENT exam: Present mucous membranes moist, normal exam and normal external ear exam Additional comments: Nasal cannula in place Neck Neck exam: Present normal inspection; Absent lymphadenopathy, tenderness or thyromegaly Respiratory Respiratory exam: Present rhonchi; Absent accessory muscle use, respiratory distress or wheezes Cardiovascular Cardiovascular exam: Present normal rate and rhythm; Absent JVD GI/Abdominal GI/Abdominal exam: Present normal bowel sounds and soft; Absent organomegaly or tenderness Extremities Exam Extremities exam: Present full ROM, normal capillary refill, normal inspection and pedal edema; Absent tenderness Neurological Exam Neurological exam: Present alert, CN II-XII intact and oriented X3; Absent motor sensory deficit Psychiatric Psychiatric exam: Present normal affect and normal mood; Absent anxious or depressed Skin Skin exam: Present dry and intact Discharge Data Data Completed and Pending Labs on day of discharge: Labs from last 24 hours 04/18/22 04/18/22 05:27 05:27 WBC 13.5 H RBC 2.99 L Hgb 8.0 L Hct 26.3 L MCV 88.0 MCH 26.8 MCHC 30.4 L RDW 16.9 H Plt Count 386 MPV 9.7 Immature Gran % (Auto) 7.0 H Neut % (Auto) 72.4 Lymph % (Auto) 12.1 L [place] % (Auto) 8.1 Eos % (Auto) 0.2 Baso % (Auto) 0.2 Lymph # (Auto) 1.63 [place] # (Auto) 1.10 H Eos # (Auto) 0.03 Baso # (Auto) 0.03 Immature Gran # 0.95 H Absolute Neutrophils 10.72 H Sodium 139 Potassium 4.7 Chloride 103 Carbon Dioxide 26 Anion Gap 10.0 BUN 84 H Creatinine 2.1 H GFR Calculation 21 Glucose 179 H Calcium 9.3 Phosphorus 4.0 Magnesium 1.9 Total Bilirubin 0.2 AST 19 ALT 36 Alkaline Phosphatase 102 Total Protein 6.6 Albumin 3.1 L Globulin 3.5 Albumin/Globulin Ratio 0.9 L Discharge Plan Patient/Caregiver Discharge Instructions Activity: increase activity as tolerated Diet: Consistent Carbohydrate Instructions: Heart Failure (GEN), COPD (Chronic Obstructive Pulmonary Disease) (GEN) Activity Restrictions/Additional Instructions: [facility] will contact you to schedule an appointment Your oxygen will be supplied by [facility] Care Equipment Prescriptions: New dextromethorphan-guaifenesin [Robafen DM Cough] 10-100 mg/5 mL Liquid 10 ml PO Q4HP PRN (Reason: Cough) 10 Days 0RF magnesium oxide 400 mg (241.3 mg magnesium) Tablet 800 mg PO DAILY 10 Days 0RF bumetanide 2 mg tablet 2 mg PO BID Qty: 60 0RF Continued metoprolol succinate [Toprol XL] 100 mg Tablet Extended Release 24 Hr 100 mg PO QDAY 0RF valsartan 80 mg Tablet 80 mg PO QDAY 0RF amlodipine 10 mg Tablet 10 mg PO QDAY 0RF gabapentin 300 mg Capsule 300 mg PO QID 0RF omeprazole 20 mg Capsule,Delayed Release(Dr/Ec) 20 mg PO QDAY 0RF insulin lispro [Humalog KwikPen Insulin] 100 unit/mL Insulin Pen 20 - 24 unit SUBCUT TID 0RF insulin glargine [Lantus Solostar U-100 Insulin] 100 unit/mL (3 mL) Insulin Pen 56 unit SUBCUT DAILY 0RF omega 4-clt-uxx-fish oil-krill [[employer] 4-in-1] 339 mg-314 mg- 500 mg Capsule 1 cap PO DAILY 0RF albuterol sulfate 90 mcg/actuation HFA aerosol inhaler 2 puff inhalation Q6H PRN (Reason: shortness of breath or wheezing) Qty: 8.5 0RF hydrocodone-acetaminophen 5 mg 5 - 325 mg PO QDAY 0RF cholecalciferol (vitamin D3) [Vitamin D3] 50 mcg (2,000 unit) Tablet 50 mcg PO QDAY 0RF omega 0-mya-jfv-fish oil-krill [[employer] 4-in-1] 339 mg-314 mg- 500 mg Capsule 1 cap PO DAILY 0RF Discontinued aspirin 325 mg Tablet 325 mg PO QDAY 0RF chlorthalidone 25 mg tablet 25 mg PO QDAY 0RF Eliquis 2.5 mg tablet 2.5 mg PO Q2 0RF furosemide 40 mg tablet 40 mg PO QDAY 0RF Follow Up Plan Follow up with: PCP, PCP [Other] (in 1 week) Maurice Schmitz MD [Physician] - Bar Catalan [Primary Care Provider] - (Please call to schedule an appointment on Monday. The office was not open due to Monday being a holiday.) Patient Disposition: Home Health Service Prognosis: Fair Rehab Potential: Good I certify that the patient requires SNF services: No Overall status at discharge: patient is progressing back to baseline Discharge Orders: Discharge Order (Routine); Ordered 04/18/22 Ordered By: Maurice TRAVIS VTE Deep Vein Thrombosis/Pulmonary Embolism Present on Admission: No
== END 2022-04-18 13:30 | disposition home health service (06) | DRG 291 ==
LOC: ED 05:29 → MEDSUR 09:17 → ICU 18:43
PROVIDERS: ADMIT Internal Medicine; ATTEND Internal Medicine